=== PATIENT | male | born 1970 | race African-American/Black ===

== ENCOUNTER 2016-05-21 19:36 | Emergency (ER) | payer OTHER ==
[~2016-05-21] VITALS: Ht 177.8 cm; Wt 88.6 kg
[~2016-05-21 19:36] MED LIST: HYDR10TA16 PO; LEVO150T7 PO; LISI-360 PO
[2016-05-21 20:04] VITALS: BP 163/92; PULSE 84; RESP 16; TEMP 98.5; O2SAT 96
[2016-05-21] MEDS ORDERED: PROPARACAINE HCL 0.5% OPHT SOLN 15 ML BTL LEFT EYE ONE (20:15)
--- NOTE | 2016-05-21 20:31 | PD ---
HPI Chief Complaint: Eye Problems/Injury Time Seen by Provider: 20:26 Travel History International Travel<30 days: No Contact w/Intl Traveler<30days: No Traveled to known affect area: No History of Present Illness HPI Patient comes in complaining of left eye irritation began yesterday afternoon while cutting hair. Patient states he's been rubbing his eye as well as tried rinsing it with warm water, but continues to have pain and irritation to left eye. Patient states it has been having some clear drainage as well. Denies any fevers, headaches, or being around anyone else with similar. He reports he feels sometimes feels that does cause some blurriness in his left eye. Patient reports the irritation is at the medial aspect of his upper left eyelid. PFSH Past Medical History Arthritis: Yes Asthma: No Autoimmune Disease: No Blood Disorders: No Anxiety: Yes Depression: Yes Heart Rhythm Problems: No Cancer: No Cardiac Catheterization: No Cardiovascular Problems: Yes ([place]; STENT x2) High Cholesterol: Yes Chemotherapy: No Chest Pain: Yes Congestive Heart Failure: No COPD: No Cerebrovascular Accident: No Coronary Artery Disease: Yes Diabetes: No Diminished Hearing: No Endocrine: Yes GERD: No Genitourinary: No Hepatitis: No Hiatal Hernia: No Hypertension: Yes Immune Disorder: No Kidney Stones: No Musculoskeletal: Yes (ARTHRITIS, BACK PAIN) Neurologic: No Psychiatric: No Reproductive: No Respiratory: No Migraines: Yes Myocardial Infarction: Yes Radiation Therapy: No Renal Failure: No Seizures: No Sickle Cell Disease: No Sleep Apnea: No Thyroid Disease: Yes (hyperthyroidism) Ulcer: No Tetanus Vaccination: < 5 Years Influenza Vaccination: No PNEUMOCCOCAL Vaccine (Year): 2 Past Surgical History Abdominal Surgery: No AICD: No Arteriovenous Shunt: No Cardiac Surgery: Yes (STENTS X 2) Coronary Artery Bypass Graft: No Coronary Stent: Yes (X2) Ear Surgery: No Endocrine Surgery: Yes (THYROIDECTOMY) Eye Surgery: No Genitourinary Surgery: No Insulin Pump: No Joint Replacement: No Oral Surgery: No Pacemaker: No Thoracic Surgery: No Other Surgery: Yes Social History Alcohol Use: Yes (OCCASIONALLY) Tobacco Use: Yes (1/2 PPD) Substance Use: Yes (HX OF MARIJUANA USE, DENIES TODAY) Allergies-Medications (Allergen,Severity, Reaction): Coded Allergies: Banana (Verified Allergy, Severe, 10/18/15) Morphine (Verified Allergy, Severe, Rash, 10/18/15) Reported Meds & Prescriptions Reported Meds & Active Scripts Active Erythromycin Opth Oint 5 Mg/Gm Oint 1 Applic LEFT EYE QID Lisinopril 10 mg (Lisinopril) 10 Mg Tab 1 Tab PO DAILY Reported Levothyroxine 150 mcg (Levothyroxine Sodium) 150 Mcg Tab 150 Mcg PO DAILY Lortab 10/500 (Acetaminophen/Hydrocodone Bitart) 10 Mg/500 Mg Tab 1 Tab PO Q6HPRN FOR PAIN Review of Systems Except as stated in HPI: all other systems reviewed are Neg Physical Exam Narrative GENERAL: Well-developed, well nourished, in no acute distress, and non-ill appearing. SKIN: Warm and dry. HEAD: Atraumatic. Normocephalic. EYES: Pupils equal and round. EOMI. No scleral icterus. No injection or drainage. Minimal edema noted medial aspect of left upper eyelid. ENT: No nasal bleeding or discharge. Mucous membranes pink and moist. NECK: Trachea midline. Supple. No nuclear rigidity. RESPIRATORY: No accessory muscle use. No respiratory distress. MUSCULOSKELETAL: No obvious deformities. No clubbing. No cyanosis. No edema. Full range of motion. NEUROLOGICAL: Awake and alert. No obvious cranial nerve deficits. Motor grossly within normal limits. Normal speech. PSYCHIATRIC: Appropriate mood and affect; insight and judgment normal. Data Data Last Documented VS Vital Signs Date Time Temp Pulse Resp B/P Pulse Ox O2 Delivery O2 Flow Rate FiO2 05/21/16 20:46 100.4 134 26 96 Room Air 05/21/16 20:04 163/92 Orders Proparacaine 0.5% Opth Soln (Alcaine 0.5 (05/21/16 20:15) [facility] Medical Decision Making Medical Screen Exam Complete: Yes Emergency Medical Condition: Yes Differential Diagnosis Foreign body, blepharitis, corneal abrasion, corneal ulcer, stye, other Narrative Course Patient in no obvious distress upon re-evaluation. Patient was asked if they wanted to speak to my attending, which the patient did not wish to do at this time. Any questions/concerns in reference to patient diagnosis/condition discussed and clarified prior to patient's discharge. Reinforced sheer importance of close follow up with patient's primary physician or primary care clinic and loom cleaner. Instructed patient to return to ED immediately, if symptoms return/worsen. Pt showed understanding of above instructions. Further instructions and recommendations were detailed in discharge paperwork. Pt ambulated without difficulty out of ED at discharge. Procedures Procedure Narrative Verbal consent was obtained. Affected eye was anesthetized using proparacaine. Fluorescein staining and Wood lamp exam performed with no uptake seen. Negative Bonnie sign. No hyphema, hyperemia, or rust ring. Eyelid was everted with no foreign body noted, but internal stye noted. No tenderness bilateral temporal arteries to palpation. Patient tolerated procedure well. Diagnosis Primary Impression: Hordeolum internum of left upper eyelid Referrals: Leigha Sotelo MD Patient Instructions: General Instructions, Luna (ED) Additional Instructions: Follow-up with your primary care physician and/or loom cleaner next week. Take all medication as prescribed. Apply warm compresses to affected eye multiple times today, decreased pain and promote healing. Return to the emergency department if symptoms get worse. Med/Other Pt SpecificInfo: Prescription(s) given Scripts Erythromycin Opth Oint 5 Mg/Gm Oint1 Applic LEFT EYE QID #1 TUBE Ref 0 Prov:Lissette Story MD 05/21/16 Disposition: 01 DISCHARGE HOME Condition: Stable Jamal Quiñones May 21, 2016 20:31
[2016-05-21] MEDS ORDERED: ERYTOIN10 LEFT EYE (20:32)
[2016-05-21 20:46] VITALS: TEMP 100.4; O2SAT 96
== END 2016-05-21 20:48 | disposition home or self-care (01) ==
LOC: PHEFT 19:36
DX: H00.024 Hordeolum internum left upper eyelid (principal)
CPT/HCPCS: 99282

== ENCOUNTER 2016-06-06 11:33 | Emergency (ER) | payer OTHER ==
[~2016-06-06] VITALS: Ht 177.8 cm; Wt 86.9 kg
[~2016-06-06 11:33] MED LIST changes: +ERYTOIN10 LEFT EYE
[2016-06-06 11:43] VITALS: BP 145/104; PULSE 71; RESP 18; TEMP 98.9; O2SAT 100
[2016-06-06] MEDS ORDERED: SYNT175T PO (11:54)
[2016-06-06] MEDS ORDERED: HYDR-3583 PO (11:54)
--- NOTE | 2016-06-06 12:05 | PD ---
HPI . Left ear pain and sore throat for 1 day Chief Complaint: ENT Complaint Time Seen by Provider: 12:05 Travel History International Travel<30 days: No Contact w/Intl Traveler<30days: No Traveled to known affect area: No History of Present Illness HPI 46-year-old male with history of hypothyroidism, CAD, OA, anxiety, depression, hypertension and old [place] here with complaints of left-sided ear pain and sore throat for 1 day. Patient said he suddenly developed an acute onset of left ear pain and sore throat, as well as some swollen glands. The pain does radiate to his left mastoid. He decided to come in for further evaluation as he does not really have a primary care provider. He tells me that his sewing line baler usually follows him for everything. He denies any cold symptoms such as fever, chills, or rhinorrhea. He denies any chest pain, nausea , vomiting, diaphoresis or shortness of breath. PFSH Past Medical History Arthritis: Yes Asthma: No Autoimmune Disease: No Blood Disorders: No Anxiety: Yes Depression: Yes Heart Rhythm Problems: No Cancer: No Cardiac Catheterization: No Cardiovascular Problems: Yes ([place], stent X's 2) High Cholesterol: Yes Chemotherapy: No Chest Pain: Yes Congestive Heart Failure: No COPD: No Cerebrovascular Accident: No Coronary Artery Disease: Yes Diabetes: No Diminished Hearing: No Endocrine: Yes GERD: No Genitourinary: No Hepatitis: No Hiatal Hernia: No Hypertension: Yes Immune Disorder: No Kidney Stones: No Musculoskeletal: Yes (Arthritis, back pain) Neurologic: No Psychiatric: No Reproductive: No Respiratory: No Migraines: Yes Myocardial Infarction: Yes Radiation Therapy: No Renal Failure: No Seizures: No Sickle Cell Disease: No Sleep Apnea: No Thyroid Disease: Yes (Hypothyroidism) Ulcer: No Tetanus Vaccination: < 5 Years Influenza Vaccination: No PNEUMOCCOCAL Vaccine (Year): 2 Past Surgical History Abdominal Surgery: No AICD: No Arteriovenous Shunt: No Cardiac Surgery: Yes (STENTS X 2) Coronary Artery Bypass Graft: No Coronary Stent: Yes (X's 2) Ear Surgery: No Endocrine Surgery: Yes (Thyroidectomy ) Eye Surgery: No Genitourinary Surgery: No Insulin Pump: No Joint Replacement: No Oral Surgery: No Pacemaker: No Thoracic Surgery: No Other Surgery: Yes Social History Alcohol Use: Yes (Occ.) Tobacco Use: Yes (1/2 PPD) Substance Use: Yes (Marijuana occ.) Allergies-Medications (Allergen,Severity, Reaction): Coded Allergies: Banana (Verified Allergy, Severe, 06/06/16) Morphine (Verified Allergy, Severe, Rash, 06/06/16) Reported Meds & Prescriptions Reported Meds & Active Scripts Active Augmentin (Amoxicillin-Clavulanate) 875-125 mg Tab 875 Mg PO BID not for use in CrCl <30 ml/min. Reported Hydrocodone-Acetaminophen 10-325 mg Tab 1 Tab PO QID PRN Synthroid (Levothyroxine Sodium) 175 Mcg Tab 175 Mcg PO DAILY Review of Systems General / Constitutional: No: Fever Eyes: No: Visual changes HENT: Positive: Sore Throat, Ear Discharge, No: Headaches Cardiovascular: No: Chest Pain or Discomfort Respiratory: No: Shortness of Breath Gastrointestinal: No: Abdominal Pain Genitourinary: No: Dysuria Musculoskeletal: No: Pain Skin: No Rash Neurologic: No: Weakness Psychiatric: No: Depression Endocrine: No: Polydipsia Hematologic/Lymphatic: No: Easy Bruising Physical Exam Narrative GENERAL: AAO x 3, no acute distress, Well-nourished, well-developed patient. SKIN: Warm and dry. No visible rashes or bruising. HEAD: Normocephalic and atraumatic. EYES: No scleral icterus. No injection or drainage. ENT: No nasal drainage noted. Mucous membranes pink. Airway patent. Normal posterior pharynx. Left TM bulging and erythematous. Tenderness to the left mastoid. NECK: Supple, trachea midline. No JVD. CARDIOVASCULAR: Regular rate and rhythm without murmurs, gallops, or rubs. RESPIRATORY: Breath sounds equal bilaterally. No accessory muscle use. No rhonchi or rales. GASTROINTESTINAL: Abdomen soft, non-tender, nondistended. EXTREMITIES: No cyanosis or edema. BACK: Nontender without obvious deformity. No CVA tenderness. PSYCH: AAO x 3, normal affect. Data Data Last Documented VS Vital Signs Date Time Temp Pulse Resp B/P Pulse Ox O2 Delivery O2 Flow Rate FiO2 06/06/16 11:50 14 06/06/16 11:43 98.9 71 145/104 100 MDM Medical Decision Making Medical Screen Exam Complete: Yes Emergency Medical Condition: Yes Medical Record Reviewed: Yes Differential Diagnosis OM, mastoiditis, sinusitis Narrative Course 46-year-old male with history of hypothyroidism, CAD, OA, anxiety, depression, hypertension and old [place] here with complaints of left-sided ear pain and sore throat for 1 day. Patient said he suddenly developed an acute onset of left ear pain and sore throat, as well as some swollen glands. The pain does radiate to his left mastoid. He decided to come in for further evaluation as he does not really have a primary care provider. He tells me that his sewing line baler usually follows him for everything. He denies any cold symptoms such as fever, chills, or rhinorrhea. He denies any chest pain, nausea , vomiting, diaphoresis or shortness of breath. Patient seen and examined. Exam is remarkable for left otitis media and tenderness over the mastoid. Discussed with patient that I will treat with a round of antibiotics. Advised him he can use Tylenol or Motrin as needed for pain. Patient verbalized understanding of instructions, questions were answered, and thanked me for their care. I advised them if their condition worsens, please return to the nearest emergency room for further care. Diagnosis Primary Impression: LOM (left otitis media) Qualified Code: H66.92 - Left otitis media, unspecified chronicity, unspecified otitis media type Additional Impression: Acute sinusitis Qualified Code: J01.00 - Acute maxillary sinusitis, recurrence not specified Patient Instructions: General Instructions, Otitis Media (ED) Additional Instructions: Please return to emergency department if your symptoms return or worsen. Follow up with your primary care provider. Take medications as prescribed. Follow-up with her primary care provider. Do not put any Q-tips or other objects in your ear. You can use salt water gargles to help with the sore throat. Med/Other Pt SpecificInfo: Prescription(s) given Scripts Amoxicillin-Clavulanate (Augmentin)875-125 mg Fad781 Mg PO BID #20 TAB not for use in CrCl <30 ml/min. Prov:Andres Marti MD 06/06/16 Disposition: 01 DISCHARGE HOME Condition: Stable Nicole Mantilla Jun 06, 2016 12:05
[2016-06-06] MEDS ORDERED: AUGM875T PO (12:09)
== END 2016-06-06 12:24 | disposition home or self-care (01) ==
LOC: PHEFT 11:33
DX: H66.92 Otitis media, unspecified, left ear (principal); J01.90 Acute sinusitis, unspecified; J02.9 Acute pharyngitis, unspecified; E78.00 Pure hypercholesterolemia, unspecified; I10 Essential (primary) hypertension; E03.9 Hypothyroidism, unspecified; F17.210 Nicotine dependence, cigarettes, uncomplicated
CPT/HCPCS: 99282

== ENCOUNTER 2016-07-24 09:42 | Emergency (ER) | payer OTHER ==
[~2016-07-24] VITALS: Ht 177.8 cm; Wt 86.0 kg
[~2016-07-24 09:42] MED LIST changes: +AUGM875T PO; -ERYTOIN10 LEFT EYE; +HYDR-3583 PO; -HYDR10TA16 PO; -LEVO150T7 PO; -LISI-360 PO; +SYNT175T PO
[2016-07-24 09:52] VITALS: PULSE 80; RESP 17; TEMP 98.5; O2SAT 97
[2016-07-24] MEDS ORDERED: HYDR-3583 PO (10:03)
[2016-07-24 10:08] VITALS: BP 206/106
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
== END 2016-07-24 10:33 | disposition home or self-care (01) ==
LOC: PHED 09:42
DX: S09.90XA Unspecified injury of head, initial encounter (principal); M25.561 Pain in right knee; M25.562 Pain in left knee; E03.9 Hypothyroidism, unspecified; Y92.008 Other place in unspecified non-institutional (private) residence as the place of occurrence of the external cause; W18.09XA Striking against other object with subsequent fall, initial encounter; Y93.01 Activity, walking, marching and hiking; Y99.9 Unspecified external cause status; I25.10 Atherosclerotic heart disease of native coronary artery without angina pectoris; E78.00 Pure hypercholesterolemia, unspecified; M19.90 Unspecified osteoarthritis, unspecified site; F41.9 Anxiety disorder, unspecified
CPT/HCPCS: 99283

== ENCOUNTER 2016-09-12 08:11 | Emergency (ER) | payer OTHER ==
[~2016-09-12] VITALS: Ht 175.3 cm; Wt 84.0 kg
[~2016-09-12 08:11] MED LIST changes: -AUGM875T PO
[2016-09-12 08:14] VITALS: BP 182/104; PULSE 80; RESP 16; TEMP 98.3; O2SAT 99
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
== END 2016-09-12 09:42 | disposition home or self-care (01) ==
LOC: PHED 08:11
DX: S06.0X0A Concussion without loss of consciousness, initial encounter (principal); I25.2 Old myocardial infarction; E78.00 Pure hypercholesterolemia, unspecified; I25.10 Atherosclerotic heart disease of native coronary artery without angina pectoris; I10 Essential (primary) hypertension; E03.9 Hypothyroidism, unspecified; F17.210 Nicotine dependence, cigarettes, uncomplicated; W22.8XXA Striking against or struck by other objects, initial encounter; Y93.9 Activity, unspecified; Y92.34 Swimming pool (public) as the place of occurrence of the external cause; Y99.8 Other external cause status
CPT/HCPCS: 70450; 99284

== ENCOUNTER 2017-03-06 12:30 | Observation (INO) | payer OTHER ==
[2017-03-06] VITALS (9 sets, daily range): BP systolic 123–181; BP diastolic 65–103; PULSE 59–87; RESP 16–22; TEMP 97.7–97.9; O2SAT 96–99
[~2017-03-06] VITALS: Ht 175.3 cm; Wt 87.0 kg
--- NOTE | 2017-03-06 12:54 | PD ---
HPI Chief Complaint: Chest Pain Time Seen by Provider: 12:47 Travel History International Travel<30 days: No Contact w/Intl Traveler<30days: No Traveled to known affect area: No History of Present Illness HPI Patient is a 47-year-old male presented to emergency department for evaluation of chest pain. Patient states the pain is been ongoing for 1 week. He states it's midsternal and radiates to his right upper chest wall. He reports palpitations, nausea, shortness of breath. He also has felt diaphoretic and lightheaded. The pain is a 10 out of 10 and is not alleviated or exacerbated by anything including activity. Patient states pain is pressure-like, he states it's feeling better now that he is here. He reports a history of a heart attack 3 years ago secondary to hyperthyroidism. He has 2 stents placed. He had a thyroidectomy and is currently on Synthroid daily. He is followed by his sales and marketing assistant. He has not seen a gear lapper in several years. He had been followed by Dr. Johnson in the past. Patient continues to smoke tobacco, he denies any illicit drug use. PFSH Past Medical History Hx Anticoagulant Therapy: Yes (asa) Arthritis: Yes Asthma: No Autoimmune Disease: No Blood Disorders: No Anxiety: Yes Depression: Yes Heart Rhythm Problems: No Cancer: No Cardiac Catheterization: No Cardiovascular Problems: Yes (ID, stent X's 2) High Cholesterol: Yes Chemotherapy: No Chest Pain: Yes Congestive Heart Failure: No COPD: No Cerebrovascular Accident: No Coronary Artery Disease: Yes Diabetes: No Diminished Hearing: No GERD: No Genitourinary: No Hepatitis: No Hiatal Hernia: No Hypertension: Yes Immune Disorder: No Kidney Stones: No Neurologic: No Psychiatric: No Reproductive: No Respiratory: No Migraines: Yes Myocardial Infarction: Yes Radiation Therapy: No Renal Failure: No Seizures: No Sickle Cell Disease: No Sleep Apnea: No Thyroid Disease: Yes Ulcer: No PNEUMOCCOCAL Vaccine (Year): 2 Past Surgical History Abdominal Surgery: No AICD: No Arteriovenous Shunt: No Coronary Artery Bypass Graft: No Coronary Stent: Yes Ear Surgery: No Endocrine Surgery: Yes (Thyroidectomy ) Eye Surgery: No Genitourinary Surgery: No Insulin Pump: No Joint Replacement: No Oral Surgery: No Pacemaker: No Thoracic Surgery: No Social History Alcohol Use: Yes (occ) Tobacco Use: Yes (1/2 ppd) Substance Use: No Allergies-Medications (Allergen,Severity, Reaction): Coded Allergies: banana (Unverified Allergy, Severe, 03/06/17) morphine (Unverified Allergy, Severe, Rash, 03/06/17) Reported Meds & Prescriptions Reported Meds & Active Scripts Active Reported Oxycodone-Acetaminophen 10-325 mg Tab 1 Tab PO Q6H PRN Aspirin 81 Mg Chew 81 Mg CHEW DAILY Synthroid (Levothyroxine Sodium) 175 Mcg Tab 175 Mcg PO DAILY Review of Systems Except as stated in HPI: all other systems reviewed are Neg General / Constitutional: No: Fever, Chills Eyes: No: Blurred Vision HENT: Positive: Lightheadedness, No: Headaches Cardiovascular: Positive: Chest Pain or Discomfort, Palpitations, Diaphoresis, No: Dyspnea on exertion, Edema Respiratory: Positive: Shortness of Breath Gastrointestinal: Positive: Nausea, No: Vomiting, Diarrhea, Abdominal Pain Neurologic: No: Weakness, Syncope, Focal Abnormalities Physical Exam Narrative GENERAL: Well-developed, well-nourished, alert male. Resting comfortably in no acute distress. SKIN: Warm and dry. HEAD: Atraumatic. Normocephalic. EYES: Pupils equal and round. No scleral icterus. No injection or drainage. ENT: No nasal bleeding or discharge. Mucous membranes pink and moist. NECK: Trachea midline. No JVD. CARDIOVASCULAR: Regular rate and rhythm. 2/6 systolic murmur RESPIRATORY: No accessory muscle use. Clear to auscultation. Breath sounds equal bilaterally. GASTROINTESTINAL: Abdomen soft, non-tender, nondistended. Hepatic and splenic margins not palpable. MUSCULOSKELETAL: Extremities without clubbing, cyanosis, or edema. No obvious deformities. NEUROLOGICAL: Awake and alert. No obvious cranial nerve deficits. Motor grossly within normal limits. Five out of 5 muscle strength in the arms and legs. Normal speech. PSYCHIATRIC: Appropriate mood and affect; insight and judgment normal. Data Data Last Documented VS Vital Signs Date Time Temp Pulse Resp B/P (MAP) Pulse Ox O2 Delivery O2 Flow Rate FiO2 03/06/17 13:08 80 20 166/77 (106) 96 Room Air 03/06/17 12:32 97.8 Orders Orders Electrocardiogram (03/06/17 12:47) Ckmb (Isoenzyme) Profile (03/06/17 12:47) Complete Blood Count With Diff (03/06/17 12:47) Comprehensive Metabolic Panel (03/06/17 12:47) Magnesium (Mg) (03/06/17 12:47) Prothrombin Time / Inr (Pt) (03/06/17 12:47) Act Partial Throm Time (Ptt) (03/06/17 12:47) Troponin I (03/06/17 12:47) Lipase (03/06/17 12:47) Chest, Single Ap (03/06/17 12:47) Ecg Monitoring (03/06/17 12:47) Bilateral Bp Monitoring (03/06/17 12:47) Iv Access Insert/Monitor (03/06/17 12:47) Oximetry (03/06/17 12:47) Oxygen Administration (03/06/17 12:47) Aspirin Chew (Aspirin Chew) (03/06/17 13:00) Nitroglycerin 2% Oint (Nitroglycerin 2% (03/06/17 13:00) Sodium Chloride 0.9% Flush (Ns Flush) (03/06/17 13:00) Thyroid Stimulating Hormone (03/06/17 12:47) Free Thyroxine (T4) (03/06/17 12:47) CKMB (03/06/17 12:52) CKMB% (03/06/17 12:52) Admit Order (Ed Use Only) (03/06/17 13:53) Labs Laboratory Tests Test 03/06/17 12:52 White Blood Count 4.7 TH/MM3 Red Blood Count 4.49 MIL/MM3 Hemoglobin 13.3 GM/DL Hematocrit 39.9 % Mean Corpuscular Volume 88.9 FL Mean Corpuscular Hemoglobin 29.5 PG Mean Corpuscular Hemoglobin Concent 33.2 % Red Cell Distribution Width 14.0 % Platelet Count 205 TH/MM3 Mean Platelet Volume 8.3 FL Neutrophils (%) (Auto) 60.1 % Lymphocytes (%) (Auto) 28.8 % Monocytes (%) (Auto) 6.7 % Eosinophils (%) (Auto) 3.9 % Basophils (%) (Auto) 0.5 % Neutrophils # (Auto) 2.8 TH/MM3 Lymphocytes # (Auto) 1.4 TH/MM3 Monocytes # (Auto) 0.3 TH/MM3 Eosinophils # (Auto) 0.2 TH/MM3 Basophils # (Auto) 0.0 TH/MM3 CBC Comment DIFF FINAL Differential Comment Prothrombin Time 11.6 SEC Prothromb Time International Ratio 1.1 RATIO Activated Partial Thromboplast Time 27.7 SEC Blood Urea Nitrogen 11 MG/DL Creatinine 0.95 MG/DL Random Glucose 97 MG/DL Total Protein 7.4 GM/DL Albumin 3.7 GM/DL Calcium Level 8.6 MG/DL Magnesium Level 1.8 MG/DL Alkaline Phosphatase 87 U/L Aspartate Amino Transf (AST/SGOT) 26 U/L Alanine Aminotransferase (ALT/SGPT) 46 U/L Total Bilirubin 0.7 MG/DL Sodium Level 140 MEQ/L Potassium Level 3.8 MEQ/L Chloride Level 105 MEQ/L Carbon Dioxide Level 29.8 MEQ/L Anion Gap 5 MEQ/L Estimat Glomerular Filtration Rate 103 ML/MIN Total Creatine Kinase 389 U/L Creatine Kinase MB 1.7 NG/ML Creatine Kinase MB % 0.4 % Troponin I LESS THAN 0.02 NG/ML Lipase 182 U/L Free Thyroxine 1.82 NG/DL Thyroid Stimulating Hormone 3rd Gen 0.013 uIU/ML MDM Medical Decision Making Medical Screen Exam Complete: Yes Emergency Medical Condition: Yes Medical Record Reviewed: Yes Interpretation(s) Last Impressions Chest X-Ray 03/06/17 1247 Signed Impressions: Service Date/Time: Monday, March 06, 2017 12:59 - CONCLUSION: 1. No acute cardiopulmonary disease. Jacobo Hairston MD Laboratory Tests Test 03/06/17 12:52 White Blood Count 4.7 TH/MM3 Red Blood Count 4.49 MIL/MM3 Hemoglobin 13.3 GM/DL Hematocrit 39.9 % Mean Corpuscular Volume 88.9 FL Mean Corpuscular Hemoglobin 29.5 PG Mean Corpuscular Hemoglobin Concent 33.2 % Red Cell Distribution Width 14.0 % Platelet Count 205 TH/MM3 Mean Platelet Volume 8.3 FL Neutrophils (%) (Auto) 60.1 % Lymphocytes (%) (Auto) 28.8 % Monocytes (%) (Auto) 6.7 % Eosinophils (%) (Auto) 3.9 % Basophils (%) (Auto) 0.5 % Neutrophils # (Auto) 2.8 TH/MM3 Lymphocytes # (Auto) 1.4 TH/MM3 Monocytes # (Auto) 0.3 TH/MM3 Eosinophils # (Auto) 0.2 TH/MM3 Basophils # (Auto) 0.0 TH/MM3 CBC Comment DIFF FINAL Differential Comment Prothrombin Time 11.6 SEC Prothromb Time International Ratio 1.1 RATIO Activated Partial Thromboplast Time 27.7 SEC Blood Urea Nitrogen 11 MG/DL Creatinine 0.95 MG/DL Random Glucose 97 MG/DL Total Protein 7.4 GM/DL Albumin 3.7 GM/DL Calcium Level 8.6 MG/DL Magnesium Level 1.8 MG/DL Alkaline Phosphatase 87 U/L Aspartate Amino Transf (AST/SGOT) 26 U/L Alanine Aminotransferase (ALT/SGPT) 46 U/L Total Bilirubin 0.7 MG/DL Sodium Level 140 MEQ/L Potassium Level 3.8 MEQ/L Chloride Level 105 MEQ/L Carbon Dioxide Level 29.8 MEQ/L Anion Gap 5 MEQ/L Estimat Glomerular Filtration Rate 103 ML/MIN Total Creatine Kinase 389 U/L Creatine Kinase MB 1.7 NG/ML Creatine Kinase MB % 0.4 % Troponin I LESS THAN 0.02 NG/ML Lipase 182 U/L Free Thyroxine 1.82 NG/DL Thyroid Stimulating Hormone 3rd Gen 0.013 uIU/ML Vital Signs Date Time Temp Pulse Resp B/P (MAP) Pulse Ox O2 Delivery O2 Flow Rate FiO2 03/06/17 12:32 97.8 87 18 181/95 (393) 97 Differential Diagnosis ACS VS NSTEMI VS [place] VS METABOLIC ABNORMALITY VS Narrative Course Patient is a 47-year-old male presents emergency evaluation of chest pain and been ongoing for 1 week. Hypertensive on arrival. He was given 324 of chewable aspirin and 2 inch of nitro paste to anterior chest wall. Labs and imaging were ordered and pending. Patient history of previous ID and continues to smoke. Initial EKG reviewed by my attending physician. Labs reviewed, no acute findings identified. Chest x-ray shows no acute disease. Due to patient's past medical history as well as current comorbidities he will be placed in the chest pain center for further trending of enzymes and observation. Chest pain admission order placed. Patient's vital signs remained stable. Diagnosis Primary Impression: Chest pain Qualified Codes: R07.9 - Chest pain, unspecified Admitting Information Admitting Physician Requests: Observation Condition: Stable Barb England Mar 06, 2017 12:54
[2017-03-06] MEDS ORDERED: ASPIRIN 81 MG CHEW TAB PO ONE (13:00)
[2017-03-06] MEDS ORDERED: NITROGLYCERIN 2% OINT 1 GM PACKET TOP ONE (13:00)
[2017-03-06] MEDS ORDERED: SODIUM CHLORIDE 0.9% FLUSH 10 ML FLUSH IVF PRN (13:00)
[2017-03-06 13:07] LABS: AUTOMATED NEUTROPHIL # 2.8 TH/MM3 (1.8-7.7); BASOPHIL % 0.5 % (0.0-2.0); EOSINOPHIL # 0.2 TH/MM3 (0-0.4); EOSINOPHIL % 3.9 % (0.0-4.0); HEMATOCRIT 39.9 % (39.0-51.0); HEMO FLAGS DIFF FINAL; LYMPH % 28.8 % (9.0-44.0); LYMPHOCYTE # 1.4 TH/MM3 (1.0-4.8); MEAN CELL VOLUME 88.9 FL (80.0-100.0); MEAN CORPUSCULAR HEMOGLOBIN 29.5 PG (27.0-34.0); MEAN CORPUSCULAR HGB CONC 33.2 % (32.0-36.0); MONO % 6.7 % (0.0-8.0); NEUT % 60.1 % (16.0-70.0); PLATELET COUNT 205 TH/MM3 (150-450); RED BLOOD COUNT 4.49 MIL/MM3 (4.50-5.90); WHITE BLOOD COUNT 4.7 TH/MM3 (4.0-11.0)
[2017-03-06 13:14] LABS: APTT (PATIENT) 27.7 SEC (24.3-30.1); INTERNATIONAL NORMALIZED RATIO 1.1 RATIO; PROTHROMBIN TIME - PATIENT 11.6 SEC (9.8-11.6)
[2017-03-06 13:21] LABS: ALT (GPT) 46 U/L (12-78); ANION GAP 5 MEQ/L (5-15); AST (GOT) 26 U/L (15-37); BICARBONATE 29.8 MEQ/L (21.0-32.0); BLOOD UREA NITROGEN 11 MG/DL (7-18); CHLORIDE 105 MEQ/L (98-107); GLOMERULAR FILTRATION RATE 103 ML/MIN (>89); MAGNESIUM 1.8 MG/DL (1.5-2.5); POTASSIUM 3.8 MEQ/L (3.5-5.1); SODIUM (NA) 140 MEQ/L (136-145)
[2017-03-06 13:30] LABS: ALKALINE PHOSPHATASE 87 U/L (45-117); CREATINE KINASE 389 U/L (39-308); FREE T4 1.82 NG/DL (0.76-1.46); TOTAL BILIRUBIN ADULT 0.7 MG/DL (0.2-1.0)
[2017-03-06] MEDS ORDERED: OXYC1TAB36 PO (13:32)
[2017-03-06] MEDS ORDERED: ASPI-516 CHEW (13:32)
[2017-03-06 13:42] LABS: CKMB 1.7 NG/ML (0.5-3.6)
--- NOTE | 2017-03-06 13:44 | RADRPT ---
EXAM DATE/TIME: 03/06/2017 12:59 [facility] COMPARISON: CHEST SINGLE AP, October 18, 2015, 23:06. INDICATIONS : Chest pain. MEDICAL HISTORY : Myocardial infarction. SURGICAL HISTORY : Cardiac stent. ENCOUNTER: Initial ACUITY: 1 day PAIN SCORE: 5/10 LOCATION: Bilateral chest FINDINGS: A single view of the chest demonstrates the lungs to be symmetrically aerated without evidence of mas s, infiltrate or effusion. The cardiomediastinal contours are unremarkable. Osseous structures are intact. CONCLUSION: 1. No acute cardiopulmonary disease. Jacobo Hairston MD on March 06, 2017 at 13:41 Board Certified Radiologist. This report was verified electronically.
[2017-03-06] MEDS ORDERED: ONDANSETRON HCL 4 MG/2 ML VIAL IV PUSH PRN (14:00)
[2017-03-06] MEDS ORDERED: ACETAMINOPHEN 500 MG CPLT PO PRN (14:00)
[2017-03-06] MEDS ORDERED: NITROGLYCERIN 0.4 MG SL 25 TABS/BTL SL PRN (14:00)
[2017-03-06] MEDS ORDERED: SODIUM CHLORIDE 0.9% FLUSH 10 ML FLUSH IV FLUSH PRN (14:00)
--- NOTE | 2017-03-06 14:56 | HHI.HP ---
HPI Primary Care Physician No Primary Care Physician Chief Complaint Chest pain History of Present Illness 47 year old male with known CAD, HTN, and current smoker presents to ER for further evaluation of chest pain. Onset 2 weeks ago. Location substernal chest. Characterized as pressure. Moderate severity. Radiation to right anterior chest and clavicle area. Duration of substernal chest pain 2-5 minutes, followed by "lingering" pain right chest. Reports accompanied intermittent palpations. No associated symptoms. No known precipitating or relieving factors. Substernal chest pain and palpations episodes occur 1-2x daily, not always occurring simultaneously. Right anterior chest pressure consistent x2 weeks. Endorses similar pain in the past prior to cardiac stent placement, however not has severe. Review of Systems General: No fatigue,weakness, fever, chills, recent illness, or change in appetite. HEENT: No BRENNER CV: As stated above, currently does not have any substernal chest pain. Continues to have right anterior chest pressure. No current palpitations. RESP: No SOB, cough, or recent respiratory infection. GI: No nausea, vomiting, or bowel changes. No change in appetite, no unintentional weight gain or weight loss. EXT: No lower leg edema, no paraesthesias MS: No discomfort or change in ROM, no known injury NEURO: No difficulty with balance, LOC, motor/sensory deficits PSYCH: No anxiety or depression. Current job related situation stress. SKIN: No rashes, no concerning lesions Past Family Social History Allergies: Coded Allergies: banana (Unverified Allergy, Severe, 03/06/17) morphine (Unverified Allergy, Severe, Rash, 03/06/17) Past Medical History hypothyroidism, chronic back pain, arthritis, CAD with x2 cardiac stents, HTN, chronic back pain Past Surgical History Thyroidectomy (2012) Reported Medications Reported Meds & Active Scripts Active Reported Oxycodone-Acetaminophen 10-325 mg Tab 1 Tab PO Q6H PRN Aspirin 81 Mg Chew 81 Mg CHEW DAILY Synthroid (Levothyroxine Sodium) 175 Mcg Tab 175 Mcg PO DAILY - Synthroid 350mcg on Sundays Active Ordered Medications Current Medications Medications (Trade) Dose Ordered Sig/Dagoberto Route Start Time Stop Time Status Last Admin (NS Flush) 2 ml UNSCH PRN IV FLUSH 03/06/17 14:00 (NS Flush) 2 ml BID IV FLUSH 03/06/17 21:00 (Tylenol) 500 mg Q4H PRN PO 03/06/17 14:00 (Zofran Inj) 4 mg Q6H PRN IV PUSH 03/06/17 14:00 (Nitrostat Sl) 0.4 mg Q5M PRN SL 03/06/17 14:00 (Aspirin) 325 mg DAILY PO 03/07/17 09:00 Family History Noncontributory for early onset cardiovascular disease Social History Known CAD and hypertension. No known diabetes. Currently not taking any cholesterol medications at this time. Current smoker 7-8 cigarettes/daily. Alcohol socially. Endorses marijuana use on days off to help with chronic pain. . 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 Past cardiac testing 10/20/15 Lexiscan-normal exam 02/12/12 Lexiscan-normal exam 12/23/10 Cardiac catheterization (Dr. Johnson) Conclusion 1. Chest pain. CAD, culprit 90% mid RCA stenosis. Otherwise mild 2 vessel CAD in a right dominant system. 2. Widely patent stent in the mid to distal RCA. 3. Hyperdynamic LVSF with relatively low end-diastolic pressure suggesting intervascular volume depletion. 4. Successful direct percutaneous coronary intervention with bare metal stent of the mid RCA from 90% to 0% with RAMAKRISHNA 3 flow. 5. Spasms at the RCA with a guide catheter in place suggesting epithelial dysfunction. 11/10/10 Cardiac catheterization (Dr. Johnson) Conclusion 1. Acute coronary syndrome with culprit 95% mid to distal right coronary artery stenosis. 2. Otherwise mild o moderate three-vessel coronary disease. 3. Normal LVSF, EF 65% . 4. Successful direct percutaneous coronary intervention with bare-metal stent of the mid to distal right coronary artery from 95% to 0% with RAMAKRISHNA-3. 5. Recommend aspirin 81 mg a day indefinitely, Plavix 600 mg PO load, then 75 mg a day for a least 2 weeks, preferably 4 weeks, optimally 6 weeks, consider indefinitely. Physical Exam Vital Signs Vital Signs Date Time Temp Pulse Resp B/P (MAP) Pulse Ox O2 Delivery O2 Flow Rate FiO2 03/06/17 13:08 80 20 166/77 (106) 96 Room Air 03/06/17 12:52 95 Room Air 03/06/17 12:52 16 99 Room Air 03/06/17 12:46 85 99 Room Air 03/06/17 12:32 97.8 87 18 181/95 (123) 97 Physical Exam GENERAL: Alert WN, WD, NAD, pleasant, male HEAD: NC, AT NECK: Supple, no masses, trachea midline CV: RRR, without murmur, rub, gallop, no JVD, S1-S2 no S3-S4. Chest wall nontender with palpation. RESP: Clear lungs throughout bilateral, no crackles, wheeze, rhonchi, symmetrical chest rise, nonlabored, able to speak in full sentences ABD: Soft, NT, ND, no masses, positive bowel tones BACK: No scoliosis EXT: Pulses +24, no dependent edema MS: Normal tone 4 extremities, no obvious deformities, full range of motion NEURO: CN II through CN XII grossly intact, motor strength 5/5 PSYCH: A+O 3, pleasant affect, appropriate speech, appropriate mood and affect , insight and judgment SKIN: Normal turgor, normal texture, no lesions, no rashes, sluggish cap refill , even hair distribution Laboratory Laboratory Tests Test 03/06/17 12:52 White Blood Count 4.7 Red Blood Count 4.49 Hemoglobin 13.3 Hematocrit 39.9 Mean Corpuscular Volume 88.9 Mean Corpuscular Hemoglobin 29.5 Mean Corpuscular Hemoglobin Concent 33.2 Red Cell Distribution Width 14.0 Platelet Count 205 Mean Platelet Volume 8.3 Neutrophils (%) (Auto) 60.1 Lymphocytes (%) (Auto) 28.8 Monocytes (%) (Auto) 6.7 Eosinophils (%) (Auto) 3.9 Basophils (%) (Auto) 0.5 Neutrophils # (Auto) 2.8 Lymphocytes # (Auto) 1.4 Monocytes # (Auto) 0.3 Eosinophils # (Auto) 0.2 Basophils # (Auto) 0.0 CBC Comment DIFF FINAL Differential Comment Prothrombin Time 11.6 Prothromb Time International Ratio 1.1 Activated Partial Thromboplast Time 27.7 Blood Urea Nitrogen 11 Creatinine 0.95 Random Glucose 97 Total Protein 7.4 Albumin 3.7 Calcium Level 8.6 Magnesium Level 1.8 Alkaline Phosphatase 87 Aspartate Amino Transf (AST/SGOT) 26 Alanine Aminotransferase (ALT/SGPT) 46 Total Bilirubin 0.7 Sodium Level 140 Potassium Level 3.8 Chloride Level 105 Carbon Dioxide Level 29.8 Anion Gap 5 Estimat Glomerular Filtration Rate 103 Total Creatine Kinase 389 Creatine Kinase MB 1.7 Creatine Kinase MB % 0.4 Troponin I LESS THAN 0.02 Lipase 182 Free Thyroxine 1.82 Thyroid Stimulating Hormone 3rd Gen 0.013 Result Diagram: 03/06/17 1252 03/06/17 1252 Imaging Last Impressions Chest X-Ray 03/06/17 1247 Signed Impressions: Service Date/Time: Monday, March 06, 2017 12:59 - CONCLUSION: 1. No acute cardiopulmonary disease. Jacobo Hairston MD Course EKG NSR, ST elevation precordial leads, most likely early repolarization, T wave inversions interiorly and anterior laterally, criteria for LVH-compared to past EKG's unchanged. Caprini VTE Risk Assessment Caprini VTE Risk Assessment: No/Low Risk (score <= 1) Caprini Risk Assessment Model Point Value = 1 Point Value = 2 Point Value = 3 Point Value = 5 Age 41-60 Minor surgery BMI > 25 kg/m2 Swollen legs Varicose veins or History of unexplained or recurrent spontaneous Oral contraceptives or hormone replacement Sepsis (< 1 month) Serious lung disease, including pneumonia (< 1 month) Abnormal pulmonary function Acute myocardial infarction Congestive heart failure (< 1 month) History of inflammatory bowel disease Medical patient at bed rest Age 61-74 Arthroscopic surgery Major open surgery (> 45 min) Laparoscopic surgery (> 45 min) Malignancy Confined to bed (> 72 hours) Immobilizing plaster cast Central venous access Age >= 75 History of VTE Family history of VTE Factor V Leiden Prothrombin [id number] Lupus anticoagulant Anticardiolipin antibodies Elevated serum homocysteine Heparin-induced thrombocytopenia Other congenital or acquired thrombophilia Stroke (< 1 month) Elective arthroplasty Hip, pelvis, or leg fracture Acute spinal cord injury (< 1 month) Prophylaxis Regimen Total Risk Factor Score Risk Level Prophylaxis Regimen 0-1 Low Early ambulation 2 Moderate Order ONE of the following: *Sequential Compression Device (SCD) *Heparin 5000 units SQ BID 3-4 Higher Order ONE of the following medications: *Heparin 5000 units SQ TID *Enoxaparin/Lovenox 40 mg SQ daily (WT < 150 kg, CrCl > 30 mL/min) *Enoxaparin/Lovenox 30 mg SQ daily (WT < 150 kg, CrCl > 10-29 mL/min) *Enoxaparin/Lovenox 30 mg SQ BID (WT < 150 kg, CrCl > 30 mL/min) AND/OR *Sequential Compression Device (SCD) 5 or more Highest Order ONE of the following medications: *Heparin 5000 units SQ TID (Preferred with Epidurals) *Enoxaparin/Lovenox 40 mg SQ daily (WT < 150 kg, CrCl > 30 mL/min) *Enoxaparin/Lovenox 30 mg SQ daily (WT < 150 kg, CrCl > 10-29 mL/min) *Enoxaparin/Lovenox 30 mg SQ BID (WT < 150 kg, CrCl > 30 mL/min) AND *Sequential Compression Device (SCD) Assessment and Plan Assessment and Plan #1 Chest pain-admitted to chest pain. Rule out with 3 sets of EKGs and cardiac enzymes. Will be seen an evaluated by Dr. Raz Alexander. Discussed possible nuclear stress test due to abnormal EKG, most likely ordered for am after being ruled out. This will be determined by cardiology. Patient agreeable to plan of care. #2 Hypertension-continue to monitor, start Lisinopril 10 mg QD, discuss importance of tight BP, establishing with a PCP, and effects of uncontrolled blood pressure on myocardium. Encouraged low sodium diet and increasing daily activity. #3 History of CAD-continue aspirin, discussed benefits of statin therapies and beta gregg therapy. Reestablish with a stripper and printer of his choice at discharge. #4 Tobacco use-strongly encouraged and stressed importance of tobacco cessation. Instructed to quit smoking. Discussed alternative pain relieving methods for his chronic pain and CDC recommendations opioids not be used for back pain. Verbalized understanding. Establish with a PCP for preventive medical care and medical management. Elizabeth Guerra Mar 06, 2017 14:56
[2017-03-06] MEDS: LISINOPRIL 10 MG TAB PO SCH (16:02)
[2017-03-06] MEDS ORDERED: LISI10TA3 PO (16:24)
[2017-03-06 16:25] LABS: CREATINE KINASE 359 U/L (39-308)
--- NOTE | 2017-03-06 16:26 | PD.CARD.PN ---
Subjective Subjective Remarks 47 YO MALE WITH HX OF CAD AND PRIOR "HEART ATTACK" (NOT DOCUMENTED). HOWEVER HE WAS STENTED X2 BY DR. HAMILTON. HE WAS HYPERTHYROID AT THE TIME AND DR. KEITA REMOVED THE THYROID. SINCE THEN HE HAS DONE REASONABLY WELL UNTIL THE LAST FEW WEEKS. OVER THE LAST FEW WEEKS HE HAS BEEN HAVING RECURRENT CP BELOW: Onset: WEEKS Character: PRESSURE Location: MID CHEST Severity: 10 Radiation: RIGHT CHEST AND SHOULDER Duration: TODAY TILL ARRIVAL IN ED Associated Symptoms: SOB, LIGHT HEADED, DIAPHORETIC, NAUSEA AND PALPITATIONS Precipitating or Relieving Factors: SITTING AND RESTING Objective Medications Current Medications Medications (Trade) Dose Ordered Sig/Dagoberto Route Start Time Stop Time Status Last Admin (NS Flush) 2 ml UNSCH PRN IV FLUSH 03/06/17 14:00 (NS Flush) 2 ml BID IV FLUSH 03/06/17 21:00 (Tylenol) 500 mg Q4H PRN PO 03/06/17 14:00 (Zofran Inj) 4 mg Q6H PRN IV PUSH 03/06/17 14:00 (Nitrostat Sl) 0.4 mg Q5M PRN SL 03/06/17 14:00 (Aspirin) 325 mg DAILY PO 03/07/17 09:00 (Prinivil) 10 mg DAILY PO 03/06/17 16:00 03/06/17 16:02 Vital Signs / I&O Vital Signs Date Time Temp Pulse Resp B/P (MAP) Pulse Ox O2 Delivery O2 Flow Rate FiO2 03/06/17 15:56 59 20 151/74 (99) 98 Room Air 03/06/17 13:08 80 20 166/77 (106) 96 Room Air 03/06/17 12:52 95 Room Air 03/06/17 12:52 16 99 Room Air 03/06/17 12:46 85 99 Room Air 03/06/17 12:32 97.8 87 18 181/95 (123) 97 Physical Exam GENERAL: WNWD COOPERATIVE SKIN: Warm and dry. HEAD: Atraumatic. Normocephalic. EYES: Pupils equal and round. No scleral icterus. No injection or drainage. ENT: No nasal bleeding or discharge. Mucous membranes pink and moist. NECK: Trachea midline. No JVD. NO BRUIT CARDIOVASCULAR: Regular rate and rhythm. NO G,R,M RESPIRATORY: No accessory muscle use. Clear to auscultation. Breath sounds equal bilaterally. MUSCULOSKELETAL: Extremities without clubbing, cyanosis, or edema. No obvious deformities. EXT: NO EDEMA Laboratory Laboratory Tests Test 03/06/17 12:52 03/06/17 15:30 White Blood Count 4.7 TH/MM3 Red Blood Count 4.49 MIL/MM3 Hemoglobin 13.3 GM/DL Hematocrit 39.9 % Mean Corpuscular Volume 88.9 FL Mean Corpuscular Hemoglobin 29.5 PG Mean Corpuscular Hemoglobin Concent 33.2 % Red Cell Distribution Width 14.0 % Platelet Count 205 TH/MM3 Mean Platelet Volume 8.3 FL Neutrophils (%) (Auto) 60.1 % Lymphocytes (%) (Auto) 28.8 % Monocytes (%) (Auto) 6.7 % Eosinophils (%) (Auto) 3.9 % Basophils (%) (Auto) 0.5 % Neutrophils # (Auto) 2.8 TH/MM3 Lymphocytes # (Auto) 1.4 TH/MM3 Monocytes # (Auto) 0.3 TH/MM3 Eosinophils # (Auto) 0.2 TH/MM3 Basophils # (Auto) 0.0 TH/MM3 CBC Comment DIFF FINAL Differential Comment Prothrombin Time 11.6 SEC Prothromb Time International Ratio 1.1 RATIO Activated Partial Thromboplast Time 27.7 SEC Blood Urea Nitrogen 11 MG/DL Creatinine 0.95 MG/DL Random Glucose 97 MG/DL Total Protein 7.4 GM/DL Albumin 3.7 GM/DL Calcium Level 8.6 MG/DL Magnesium Level 1.8 MG/DL Alkaline Phosphatase 87 U/L Aspartate Amino Transf (AST/SGOT) 26 U/L Alanine Aminotransferase (ALT/SGPT) 46 U/L Total Bilirubin 0.7 MG/DL Sodium Level 140 MEQ/L Potassium Level 3.8 MEQ/L Chloride Level 105 MEQ/L Carbon Dioxide Level 29.8 MEQ/L Anion Gap 5 MEQ/L Estimat Glomerular Filtration Rate 103 ML/MIN Total Creatine Kinase 389 U/L Creatine Kinase MB 1.7 NG/ML Creatine Kinase MB % 0.4 % Troponin I LESS THAN 0.02 NG/ML Lipase 182 U/L Free Thyroxine 1.82 NG/DL Thyroid Stimulating Hormone 3rd Gen 0.013 uIU/ML Imaging Last 24 hours Impressions Chest X-Ray 03/06/17 4847 Signed Impressions: Service Date/Time: Monday, March 06, 2017 12:59 - CONCLUSION: 1. No acute cardiopulmonary disease. Jacobo Hairston MD Assessment and Plan Assessment and Plan CAD RECURRING CP THYROID HTN TOBACCO ABUSE Code Status FULL Discussed Condition With DISCUSSED EVALUATION AND NUC SCAN WITH PT NEED TO STOP SMOKING NEED TO FU OP ON ROUTINE BASIS Raz Alexander MD Mar 06, 2017 16:26
[2017-03-06 16:37] LABS: CKMB 1.6 NG/ML (0.5-3.6)
[2017-03-06] MEDS ORDERED: cloNIDine HCL 0.1 MG TAB PO PRN (16:45)
--- NOTE | 2017-03-06 16:45 | PD ---
Data Data Last Documented VS Vital Signs Date Time Temp Pulse Resp B/P (MAP) Pulse Ox O2 Delivery O2 Flow Rate FiO2 03/06/17 13:08 80 20 166/77 (106) 96 Room Air 03/06/17 12:32 97.8 Orders Orders Electrocardiogram (03/06/17 12:47) Ckmb (Isoenzyme) Profile (03/06/17 12:47) Complete Blood Count With Diff (03/06/17 12:47) Comprehensive Metabolic Panel (03/06/17 12:47) Magnesium (Mg) (03/06/17 12:47) Prothrombin Time / Inr (Pt) (03/06/17 12:47) Act Partial Throm Time (Ptt) (03/06/17 12:47) Troponin I (03/06/17 12:47) Lipase (03/06/17 12:47) Chest, Single Ap (03/06/17 12:47) Ecg Monitoring (03/06/17 12:47) Bilateral Bp Monitoring (03/06/17 12:47) Iv Access Insert/Monitor (03/06/17 12:47) Oximetry (03/06/17 12:47) Oxygen Administration (03/06/17 12:47) Aspirin Chew (Aspirin Chew) (03/06/17 13:00) Nitroglycerin 2% Oint (Nitroglycerin 2% (03/06/17 13:00) Sodium Chloride 0.9% Flush (Ns Flush) (03/06/17 13:00) Thyroid Stimulating Hormone (03/06/17 12:47) Free Thyroxine (T4) (03/06/17 12:47) CKMB (03/06/17 12:52) CKMB% (03/06/17 12:52) Admit Order (Ed Use Only) (03/06/17 13:53) Labs Laboratory Tests Test 03/06/17 12:52 White Blood Count 4.7 TH/MM3 Red Blood Count 4.49 MIL/MM3 Hemoglobin 13.3 GM/DL Hematocrit 39.9 % Mean Corpuscular Volume 88.9 FL Mean Corpuscular Hemoglobin 29.5 PG Mean Corpuscular Hemoglobin Concent 33.2 % Red Cell Distribution Width 14.0 % Platelet Count 205 TH/MM3 Mean Platelet Volume 8.3 FL Neutrophils (%) (Auto) 60.1 % Lymphocytes (%) (Auto) 28.8 % Monocytes (%) (Auto) 6.7 % Eosinophils (%) (Auto) 3.9 % Basophils (%) (Auto) 0.5 % Neutrophils # (Auto) 2.8 TH/MM3 Lymphocytes # (Auto) 1.4 TH/MM3 Monocytes # (Auto) 0.3 TH/MM3 Eosinophils # (Auto) 0.2 TH/MM3 Basophils # (Auto) 0.0 TH/MM3 CBC Comment DIFF FINAL Differential Comment Prothrombin Time 11.6 SEC Prothromb Time International Ratio 1.1 RATIO Activated Partial Thromboplast Time 27.7 SEC Blood Urea Nitrogen 11 MG/DL Creatinine 0.95 MG/DL Random Glucose 97 MG/DL Total Protein 7.4 GM/DL Albumin 3.7 GM/DL Calcium Level 8.6 MG/DL Magnesium Level 1.8 MG/DL Alkaline Phosphatase 87 U/L Aspartate Amino Transf (AST/SGOT) 26 U/L Alanine Aminotransferase (ALT/SGPT) 46 U/L Total Bilirubin 0.7 MG/DL Sodium Level 140 MEQ/L Potassium Level 3.8 MEQ/L Chloride Level 105 MEQ/L Carbon Dioxide Level 29.8 MEQ/L Anion Gap 5 MEQ/L Estimat Glomerular Filtration Rate 103 ML/MIN Total Creatine Kinase 389 U/L Creatine Kinase MB 1.7 NG/ML Creatine Kinase MB % 0.4 % Troponin I LESS THAN 0.02 NG/ML Lipase 182 U/L Free Thyroxine 1.82 NG/DL Thyroid Stimulating Hormone 3rd Gen 0.013 uIU/ML MDM Supervised Visit with ROSE: Yes Narrative Course The history, exam, and medical decision-making in the associated mid-level provider note were completed with my assistance. I reviewed and agree with the findings presented. I attest that I had a [id number] encounter with the patient on the same day, and personally performed and documented my assessment and findings in the medical record. *My assessment and Findings: 47-year-old man, for this emergency Department intermittent, somewhat exertional chest discomfort. History moderately suggestive for ACS. He is a history of ACS in the past apparently so she with thyroid disease. Presents back with the same. Very abnormal EKG, but consistent with baseline. He has what appears to be significant J-point elevation and ST changes seem to be related to early repolarization and not ischemia. Temperature is on multiple EKGs in the past. Initial troponin is negative. I think is a candidate for the chest pain Center will need follow-up for his thyroid disease. Diagnosis Primary Impression: Chest pain Qualified Codes: R07.9 - Chest pain, unspecified Scripts Lisinopril (Lisinopril) 10 Mg Tab 10 MG PO DAILY, #30 TAB 1 Refill Prov: Elizabeth Guerra 03/06/17 Condition: Stable Miguel Gaston MD Mar 06, 2017 16:45
[2017-03-06] MEDS: oxyCODONE/ACETAMINOPHEN 10 MG/325 MG TAB PO PRN (17:42)
[2017-03-06 19:33] LABS: CREATINE KINASE 338 U/L (39-308)
[2017-03-06 19:45] LABS: CKMB 1.7 NG/ML (0.5-3.6)
[2017-03-06] MEDS: SODIUM CHLORIDE 0.9% FLUSH 10 ML FLUSH IV FLUSH SCH (21:35)
[2017-03-07] VITALS (9 sets, daily range): BP systolic 130–189; BP diastolic 58–102; PULSE 57–69; RESP 18–21; TEMP 97.9–98.1; O2SAT 96–100
[2017-03-07] MEDS ORDERED: LEVOTHYROXINE SODIUM 75 MCG TAB PO SCH (06:00)
[2017-03-07] MEDS ORDERED: LEVOTHYROXINE SODIUM 100 MCG TAB PO SCH (06:00)
[2017-03-07] MEDS: LISINOPRIL 10 MG TAB PO SCH (08:48)
[2017-03-07] MEDS: SODIUM CHLORIDE 0.9% FLUSH 10 ML FLUSH IV FLUSH SCH (08:48)
[2017-03-07] MEDS: oxyCODONE/ACETAMINOPHEN 10 MG/325 MG TAB PO PRN (08:52)
[2017-03-07] MEDS ORDERED: ASPIRIN 325 MG TAB PO SCH (09:00)
[2017-03-07] MEDS ORDERED: REGADENOSON INJ 0.4 MG/5 ML SYR ONE (09:38)
--- NOTE | 2017-03-07 11:08 | RADRPT ---
EXAM DATE/TIME: 03/07/2017 09:35 [facility] COMPARISON: No previous studies available for comparison. INDICATIONS : Substernal chest pain radiating to right side. Angina. Coronary artery disease. DOSE: 25.5 mCi Tc99m Myoview at stress. 8.5 mCi Tc99m Myoview at rest. 0.4 mg Lexiscan STRESS SYMPTOMS: Shortness of breath. EJECTION FRACTION: 53% MEDICAL HISTORY : Hypertension. Hypothyroidism. SURGICAL HISTORY : Thyroidectomy. Coronary artery stent. ENCOUNTER: Initial ACUITY: 2 weeks PAIN SCALE: 5/10 LOCATION: Substernal chest TECHNIQUE: The patient underwent pharmacologic stress with infusion of prescribed dose. Continuous ECG tracing was monitored during stress. Gated SPECT imaging was performed after stress and conventional SPECT i maging was performed at rest. The examination was performed on a SPECT/CT scanner, both attenuation and non-corrected datasets were reviewed. FINDINGS: DISTRIBUTION: The maximum perfused segment at stress is in the lateral wall. PERFUSION STUDY: The pattern of perfusion at stress is within normal limits. GATED STUDY: There is intact wall motion and thickening without hypokinetic or dyskinetic segments. CONCLUSION: 1. Unremarkable myocardial perfusion scan. RISK CATEGORY: Low (<1% Annual Mortality Rate) John Garnica MD on March 07, 2017 at 11:05 Board Certified Radiologist. This report was verified electronically.
--- NOTE | 2017-03-07 12:12 | HHI.DCPOC ---
Discharge Care Plan Diagnosis: (1) Chest pain (2) Hypertension (3) Tobacco abuse (4) H/O heart artery stent Goals to Promote Your Health YOU SHOULD BE TAKING CHOLESTEROL MEDICATIONS WITH YOUR HISTORY OF HEART DISEASE. DISCUSS THIS WITH YOUR PHYSICIAN. * To prevent worsening of your condition and complications * To maintain your health at the optimal level Directions to Meet Your Goals Take your medications as prescribed Follow your dietary instruction Follow activity as directed Keep your appointments as scheduled Take your immunizations and boosters as scheduled If your symptoms worsen call your PCP, if no PCP go to Urgent Care Center or Emergency Room Smoking is Dangerous to Your Health. Avoid second hand smoke Call the 24-hour hour crisis hotline for domestic abuse at [facility] [place] Mar 07, 2017 12:12
--- NOTE | 2017-03-07 14:57 | EKG ---
Date Performed: 03/06/2017 Time Performed: 15:38:21 PTAGE: 47 years EKG: SINUS BRADYCARDIA LEFT VENTRICULAR HYPERTROPHY AND ST-T CHANGE ABNORMAL ECG PREVIOUS TRACING : 03/06/2017 12.44 Since previous tracing, no significant change noted DOCTOR: John Garcia Interpretating Date/Time 03/07/2017 14:56:28
--- NOTE | 2017-03-07 14:57 | EKG ---
Date Performed: 03/06/2017 Time Performed: 18:39:40 PTAGE: 47 years EKG: Sinus rhythm ST ELEVATION CONSISTENT WITH INJURY, PERICARDITIS, OR EARLY REPOLARIZATION ST DEVIATION AND MODERATE T-WAVE ABNORMALITY, CONSIDER LATERAL ISCHEMIA ABNORMAL ECG PREVIOUS TRACING : 03/06/2017 15.38 Since previous tracing, no significant change noted DOCTOR: John Garcia Interpretating Date/Time 03/07/2017 14:56:16
--- NOTE | 2017-03-07 14:59 | EKG ---
Date Performed: 03/06/2017 Time Performed: 12:44:42 PTAGE: 47 years EKG: Sinus rhythm LEFT VENTRICULAR HYPERTROPHY AND ST-T CHANGE ABNORMAL ECG PREVIOUS TRACING : 10/19/2015 05.37 Since previous tracing, no significant change noted DOCTOR: John Garcia Interpretating Date/Time 03/07/2017 14:57:50
--- NOTE | 2017-03-07 15:00 | TR ---
Date Performed: 03/07/2017 Time Performed: 09:57:10 DOCTOR: John Garcia DRUG LIST: CLINICAL HISTORY: ANGINA REASON FOR TEST: Angina REASON FOR ENDING: OBSERVATION: CONCLUSION: Lexiscan stress test was performed under standard four minute protocol. Radionuclid e was injected one minute prior to ending the test. No electrocardiographic abormalities were present to suggest ischemia. Nuclear imaging and interpretation are pending. COMMENTS:
== END 2017-03-07 13:01 | disposition home or self-care (01) ==
LOC: NEPE 12:30 → NEDA 13:54 → NEPFCDU 16:18
PROVIDERS: ADMIT Internal Medicine Interventional Cardiology; ATTEND Internal Medicine Interventional Cardiology
DX: R07.89 Other chest pain (principal); R07.2 Precordial pain; R06.02 Shortness of breath; R00.2 Palpitations; R61 Generalized hyperhidrosis; R11.0 Nausea; R42 Dizziness and giddiness; R00.1 Bradycardia, unspecified; I11.9 Hypertensive heart disease without heart failure; R94.31 Abnormal electrocardiogram [ECG] [EKG]; I25.119 Atherosclerotic heart disease of native coronary artery with unspecified angina pectoris; I25.2 Old myocardial infarction; E78.00 Pure hypercholesterolemia, unspecified; E03.9 Hypothyroidism, unspecified; F41.9 Anxiety disorder, unspecified; F32.9 Major depressive disorder, single episode, unspecified; M54.9 Dorsalgia, unspecified; G89.29 Other chronic pain; M19.90 Unspecified osteoarthritis, unspecified site; F17.210 Nicotine dependence, cigarettes, uncomplicated; F12.90 Cannabis use, unspecified, uncomplicated; Z79.899 Other long term (current) drug therapy; Z79.82 Long term (current) use of aspirin; Z95.5 Presence of coronary angioplasty implant and graft
CPT/HCPCS: 71010; 78452; 80053; 82550; 82552; 83690; 83735; 84439; 84443; 84484; 85025; 85610; 85730; 93005; 93017; 99285; A9502; G0378; J2785

== ENCOUNTER 2017-04-08 07:58 | Emergency (ER) | payer OTHER ==
[~2017-04-08] VITALS: Ht 177.8 cm; Wt 88.4 kg
[~2017-04-08 07:58] MED LIST changes: +ASPI-516 CHEW; -HYDR-3583 PO; +LISI10TA3 PO; +OXYC1TAB36 PO
[2017-04-08 08:01] VITALS: BP 193/102; PULSE 82; RESP 16; TEMP 97.9; O2SAT 98
[2017-04-08] MEDS ORDERED: BACL20TA PO (08:11)
[2017-04-08] MEDS ORDERED: KETOROLAC TROMETHAMINE 60 MG/2 ML (IM) VIAL IM ONE (08:30)
--- NOTE | 2017-04-08 08:37 | PD ---
HPI Chief Complaint: Back/ Neck Pain or Injury Time Seen by Provider: 08:18 Travel History International Travel<30 days: No Contact w/Intl Traveler<30days: No Traveled to known affect area: No History of Present Illness HPI This patient complains of a flare of his chronic back pain. He's had back pain for the last 15 years. He takes hydrocodone and muscle relaxants and anti- inflammatory medication. He follows with Dr. Luna. No acute injury. 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 Symptoms severity is moderate PFSH Past Medical History Hx Anticoagulant Therapy: Yes (BABY ASA DAILY) Arthritis: Yes Asthma: No Autoimmune Disease: No Blood Disorders: No Anxiety: Yes Depression: Yes Heart Rhythm Problems: No Cancer: No Cardiac Catheterization: Yes (X2) Cardiovascular Problems: Yes (SC, HTN) High Cholesterol: Yes Chemotherapy: No Chest Pain: Yes Congestive Heart Failure: No COPD: No Cerebrovascular Accident: No Coronary Artery Disease: Yes Diabetes: No Diminished Hearing: No GERD: No Genitourinary: No Hepatitis: No Hiatal Hernia: No Hypertension: Yes Immune Disorder: No Kidney Stones: No Musculoskeletal: Yes (chronic back pain) Neurologic: No Psychiatric: No Reproductive: No Respiratory: No Migraines: Yes Myocardial Infarction: Yes Radiation Therapy: No Renal Failure: No Seizures: No Sickle Cell Disease: No Sleep Apnea: No Thyroid Disease: Yes Ulcer: No Influenza Vaccination: No PNEUMOCCOCAL Vaccine (Year): 2 Past Surgical History Abdominal Surgery: No AICD: No Arteriovenous Shunt: No Coronary Artery Bypass Graft: No Coronary Stent: Yes Ear Surgery: No Endocrine Surgery: Yes (Thyroidectomy ) Eye Surgery: No Genitourinary Surgery: No Insulin Pump: No Joint Replacement: No Oral Surgery: No Pacemaker: No Thoracic Surgery: No Social History Alcohol Use: Yes (occ) Tobacco Use: Yes (/2 ppd) Substance Use: Yes (marijuana) Allergies-Medications (Allergen,Severity, Reaction): Coded Allergies: banana (Unverified Allergy, Severe, GI UPSET, 04/08/17) morphine (Unverified Allergy, Severe, Rash, 04/08/17) Reported Meds & Prescriptions Reported Meds & Active Scripts Active Lisinopril 10 Mg Tab 10 Mg PO DAILY Reported Baclofen 20 Mg Tab 20 Mg PO TID Oxycodone-Acetaminophen 10-325 mg Tab 1 Tab PO Q6H PRN Aspirin 81 Mg Chew 81 Mg CHEW DAILY Synthroid (Levothyroxine Sodium) 175 Mcg Tab 175 Mcg PO DAILY Review of Systems General / Constitutional: No: Fever HENT: No: Headaches Cardiovascular: No: Chest Pain or Discomfort Respiratory: No: Cough Physical Exam Narrative GASTROINTESTINAL: Abdomen soft, non-tender, nondistended. Positive bowel sounds. No hepato-splenomegaly, or palpable masses. No guarding. SKIN: Focused skin assessment reveals no rash or ulcers. Skin is warm and dry. Palpation shows no induration or nodules. NEUROLOGICAL: Awake and alert. Pupils are equal round and reactive. Motor and sensory grossly within normal limits. Five out of 5 muscle strength in all muscle groups. Normal speech. Data Data Last Documented VS Vital Signs Date Time Temp Pulse Resp B/P (MAP) Pulse Ox O2 Delivery O2 Flow Rate FiO2 04/08/17 08:01 97.9 82 16 193/102 (132) 98 Orders Orders Ketorolac Inj (Toradol Inj) (04/08/17 08:30) [facility] Medical Decision Making Medical Screen Exam Complete: Yes Emergency Medical Condition: Yes Medical Record Reviewed: Yes Differential Diagnosis Sciatica, lumbar strain, chronic back pain flare Narrative Course I have reviewed the patient's electronic medical record. Patient was seen here for chronic back pain 2 years ago Patient is neurologically intact. No red flags to suggest emergent imaging is indicated. I gave him Toradol injection. He is driving I don't want to sedate him. He wants A work note for this week, I have given him one for today Diagnosis Primary Impression: Chronic lower back pain Qualified Codes: M54.42 - Lumbago with sciatica, left side; G89.29 - Other chronic pain Additional Instructions: The patient was advised to follow up with their physician and return if they worsen. Med/Other Pt SpecificInfo: Other Disposition: 01 DISCHARGE HOME Condition: Stable Anderson Quevedo MD Apr 08, 2017 08:37
== END 2017-04-08 08:52 | disposition home or self-care (01) ==
LOC: PHED 07:58
DX: M54.5 Low back pain (principal); G89.29 Other chronic pain; M19.90 Unspecified osteoarthritis, unspecified site; F41.9 Anxiety disorder, unspecified; F32.9 Major depressive disorder, single episode, unspecified; I10 Essential (primary) hypertension; I25.10 Atherosclerotic heart disease of native coronary artery without angina pectoris; E78.00 Pure hypercholesterolemia, unspecified; I25.2 Old myocardial infarction
CPT/HCPCS: 96372; 99284; J1885

== ENCOUNTER 2017-04-10 12:50 | Emergency (ER) | payer OTHER ==
[~2017-04-10] VITALS: Ht 177.8 cm; Wt 88.5 kg
[~2017-04-10 12:50] MED LIST changes: +BACL20TA PO
[2017-04-10 12:51] VITALS: BP 176/95; PULSE 70; RESP 16; TEMP 98.6; O2SAT 100
--- NOTE | 2017-04-10 13:20 | PD ---
HPI Chief Complaint: Pain: Acute or Chronic Time Seen by Provider: 13:05 Travel History International Travel<30 days: No Contact w/Intl Traveler<30days: No Traveled to known affect area: No History of Present Illness HPI 47-year-old male came to the emergency room with history of lower back pain. Patient has history of chronic back pain. He said he pulled some boxes at his work and since then it has started to hurt again. This been going on for past 3 -4 days. He went to the emergency room in [place] 2-3 days ago and was given a shot of Toradol. Patient says it took the edge off but the pain is still there. 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 Patient came back since the pain is still there. Vital signs are stable. [facility] Past Medical History Narrative Medical List of his past medical, surgical, social and family history is reviewed from the nursing note. Hx Anticoagulant Therapy: Yes (BABY ASA DAILY) Arthritis: Yes Asthma: No Autoimmune Disease: No Blood Disorders: No Anxiety: Yes Depression: Yes Heart Rhythm Problems: No Cancer: No Cardiac Catheterization: Yes (X2) Cardiovascular Problems: Yes (SD, HTN) High Cholesterol: Yes Chemotherapy: No Chest Pain: Yes Congestive Heart Failure: No COPD: No Cerebrovascular Accident: No Coronary Artery Disease: Yes Diabetes: No Diminished Hearing: No GERD: No Genitourinary: No Hepatitis: No Hiatal Hernia: No Hypertension: Yes Immune Disorder: No Kidney Stones: No Musculoskeletal: Yes (chronic back pain) Neurologic: No Psychiatric: No Reproductive: No Respiratory: No Migraines: Yes Myocardial Infarction: Yes Radiation Therapy: No Renal Failure: No Seizures: No Sickle Cell Disease: No Sleep Apnea: No Thyroid Disease: Yes Ulcer: No PNEUMOCCOCAL Vaccine (Year): 2 Past Surgical History Abdominal Surgery: No AICD: No Arteriovenous Shunt: No Coronary Artery Bypass Graft: No Coronary Stent: Yes Ear Surgery: No Endocrine Surgery: Yes (Thyroidectomy ) Eye Surgery: No Genitourinary Surgery: No Insulin Pump: No Joint Replacement: No Oral Surgery: No Pacemaker: No Thoracic Surgery: No Social History Alcohol Use: Yes (occ) Tobacco Use: Yes (1/2 ppd) Substance Use: Yes (marijuana) Allergies-Medications (Allergen,Severity, Reaction): Coded Allergies: banana (Unverified Allergy, Severe, GI UPSET, 04/08/17) morphine (Unverified Allergy, Severe, Rash, 04/08/17) Comments List of his allergies reviewed from the nursing note. Reported Meds & Prescriptions Reported Meds & Active Scripts Active Lisinopril 10 Mg Tab 10 Mg PO DAILY Reported Baclofen 20 Mg Tab 20 Mg PO TID Oxycodone-Acetaminophen 10-325 mg Tab 1 Tab PO Q6H PRN Aspirin 81 Mg Chew 81 Mg CHEW DAILY Synthroid (Levothyroxine Sodium) 175 Mcg Tab 175 Mcg PO DAILY Narrative Medication List of his home medications reviewed from the nursing note. Review of Systems Except as stated in HPI: all other systems reviewed are Neg Musculoskeletal: Positive: Pain Physical Exam Narrative GENERAL: Awake, alert, no obvious distress SKIN: Focused skin assessment warm/dry. HEAD: Atraumatic. Normocephalic. EYES: Pupils equal and round. No scleral icterus. No injection or drainage. ENT: No nasal bleeding or discharge. Mucous membranes pink and moist. NECK: Trachea midline. No JVD. CARDIOVASCULAR: Regular rate and rhythm. No murmur appreciated. RESPIRATORY: No accessory muscle use. Clear to auscultation. Breath sounds equal bilaterally. GASTROINTESTINAL: Abdomen soft, non-tender, nondistended. Hepatic and splenic margins not palpable. MUSCULOSKELETAL: No obvious deformities. No clubbing. No cyanosis. No edema. Negative SLR NEUROLOGICAL: Awake and alert. No obvious cranial nerve deficits. Motor grossly within normal limits. Normal speech. PSYCHIATRIC: Appropriate mood and affect; insight and judgment normal. Data Data Last Documented VS Vital Signs Date Time Temp Pulse Resp B/P (MAP) Pulse Ox O2 Delivery O2 Flow Rate FiO2 04/10/17 14:06 04/10/17 12:51 98.6 70 16 100 Orders Orders Ketorolac Inj (Toradol Inj) (04/10/17 13:30) Orphenadrine Inj (Norflex Inj) (04/10/17 13:30) Ed Discharge Order (04/10/17 13:30) [facility] Medical Decision Making Medical Screen Exam Complete: Yes Emergency Medical Condition: Yes Medical Record Reviewed: Yes Differential Diagnosis Lumbar radiculopathy, acute on chronic back pain Narrative Course 1:32 PM patient is given another dose of Toradol and Norflex this time. I'll discharge him home. Instructed him to call his paint roller cover machine setter tomorrow and follow-up with him for further management. Procedures EKG Prior to Arrival: No Diagnosis Primary Impression: Acute exacerbation of chronic low back pain Referrals: Primary Care Physician Departure Forms: Tests/Procedures, Work Release Enter return to work date: Apr 12, 2017 Additional Instructions: Follow-up with your paint roller cover machine setter for further management of your back pain. Do not lift weight heavier than 5 pounds. Med/Other Pt SpecificInfo: No Change to Meds Disposition: 01 DISCHARGE HOME Condition: Stable William Blue MD Apr 10, 2017 13:20
[2017-04-10] MEDS ORDERED: KETOROLAC TROMETHAMINE 60 MG/2 ML (IM) VIAL IM ONE (13:30)
[2017-04-10] MEDS ORDERED: ORPHENADRINE INJ 60 MG/2 ML AMP IM ONE (13:30)
== END 2017-04-10 14:08 | disposition home or self-care (01) ==
LOC: NEPD 12:50
DX: M54.5 Low back pain (principal); G89.29 Other chronic pain; I10 Essential (primary) hypertension; I25.10 Atherosclerotic heart disease of native coronary artery without angina pectoris; E78.00 Pure hypercholesterolemia, unspecified; I25.2 Old myocardial infarction; F41.9 Anxiety disorder, unspecified; F32.9 Major depressive disorder, single episode, unspecified; E07.9 Disorder of thyroid, unspecified
CPT/HCPCS: 96372; 99284; J1885; J2360

== ENCOUNTER 2017-06-30 19:47 | Inpatient (IN) | payer OTHER ==
[~2017-06-30] VITALS: Ht 175.3 cm; Wt 90.0 kg
[2017-06-30 19:58] VITALS: BP 217/125; PULSE 76; RESP 20; TEMP 98.7; O2SAT 98
[2017-06-30] MEDS ORDERED: ONDANSETRON HCL 4 MG/2 ML VIAL IV PUSH ONE (20:15)
[2017-06-30] MEDS ORDERED: PROPOFOL 200 MG/20 ML AMP IV ONE (20:15)
[2017-06-30] MEDS ORDERED: HYDROmorphone HCL PF 2 MG/ML VIAL IV PUSH ONE ×2 (20:15→21:15)
[2017-06-30 20:28] VITALS: O2SAT 98
[2017-06-30 20:34] LABS: AUTOMATED NEUTROPHIL # 2.7 TH/MM3 (1.8-7.7); BASOPHIL % 0.8 % (0.0-2.0); EOSINOPHIL # 0.2 TH/MM3 (0-0.4); EOSINOPHIL % 3.9 % (0.0-4.0); HEMATOCRIT 42.3 % (39.0-51.0); HEMOGLOBIN 14.2 GM/DL (13.0-17.0); LYMPH % 31.6 % (9.0-44.0); LYMPHOCYTE # 1.6 TH/MM3 (1.0-4.8); MEAN CELL VOLUME 87.8 FL (80.0-100.0); MEAN CORPUSCULAR HEMOGLOBIN 29.4 PG (27.0-34.0); MEAN CORPUSCULAR HGB CONC 33.4 % (32.0-36.0); MEAN PLATELET VOLUME 8.2 FL (7.0-11.0); MONOCYTE # 0.5 TH/MM3 (0-0.9); NEUT % 53.7 % (16.0-70.0); PLATELET COUNT 251 TH/MM3 (150-450); RED BLOOD COUNT 4.82 MIL/MM3 (4.50-5.90); RED CELL DISTRIBUTION WIDTH 14.6 % (11.6-17.2); WHITE BLOOD COUNT 5.1 TH/MM3 (4.0-11.0)
[2017-06-30 21:02] VITALS: BP 142/94; PULSE 79; RESP 16; O2SAT 96
[2017-06-30] MEDS ORDERED: SODIUM CHLOR 0.9% 1000 ML INJ 1,000 ML IV SCH (21:18)
--- NOTE | 2017-06-30 21:18 | RADRPT ---
EXAM DATE/TIME: 06/30/2017 20:12 [facility] COMPARISON: CHEST SINGLE AP, March 06, 2017, 12:59. INDICATIONS : Shortness of breath. MEDICAL HISTORY : Myocardial infarction. SURGICAL HISTORY : Cardiac stent. ENCOUNTER: Initial ACUITY: 1 day PAIN SCORE: 0/10 LOCATION: Bilateral chest FINDINGS: A single view of the chest demonstrates the lungs to be symmetrically aerated without evidence of mas s, infiltrate or effusion. The cardiomediastinal contours are unremarkable. Osseous structures are intact. CONCLUSION: No acute disease. Yuri Stephenson MD on June 30, 2017 at 21:16 Board Certified Radiologist. This report was verified electronically.
--- NOTE | 2017-06-30 21:19 | RADRPT ---
EXAM DATE/TIME: 06/30/2017 20:13 [facility] COMPARISON: No previous studies available for comparison. INDICATIONS : Right ankle pain after getting caught in a wire and twisting ankle/foot. MEDICAL HISTORY : Cardiovascular disease. Myocardial infarction. Hypertension. SURGICAL HISTORY : Coronary artery stent. Thyroidectomy. ENCOUNTER: Initial ACUITY: 1 day PAIN SCORE: 10/10 LOCATION: Right ankle FINDINGS: There is an oblique fracture the distal fibula. The distal fibula maintains its alignment with the ta rocio. The distal fibular fragment and talus are laterally and posteriorly displaced at the ankle joint . The distal tibia appears grossly intact. CONCLUSION: Ankle dislocation with oblique fracture the distal fibula. Yuri Stephenson MD on June 30, 2017 at 21:16 Board Certified Radiologist. This report was verified electronically.
--- NOTE | 2017-06-30 21:20 | RADRPT ---
EXAM DATE/TIME: 06/30/2017 20:14 [facility] COMPARISON: No previous studies available for comparison. INDICATIONS : Right foot pain after getting caught in a wire and twisting ankle/foot. MEDICAL HISTORY : Cardiovascular disease. Myocardial infarction. Hypertension. SURGICAL HISTORY : Coronary artery stent. Thyroidectomy. ENCOUNTER: Initial ACUITY: 1 day PAIN SCORE: 10/10 LOCATION: Right foot FINDINGS: The bones of the foot appear intact. There is dislocation at the ankle and fracture at the distal fib moy. CONCLUSION: No abnormality seen within the foot. Yuri Stephenson MD on June 30, 2017 at 21:17 Board Certified Radiologist. This report was verified electronically.
--- NOTE | 2017-06-30 21:20 | HHI.HP ---
HPI Service [facility] Primary Care Physician No Primary Care Physician Admission Diagnosis Diagnoses: (1) Ankle fracture Diagnosis: Principal (2) HTN (hypertension) Diagnosis: Principal (3) Tobacco abuse Diagnosis: Principal Travel History International Travel<30 Days: No Contact w/Intl Traveler <30 Da: No Traveled to Known Affected Are: No History of Present Illness This is a 47-year-old male with a PMH of Anxiety, Depression, HTN and Tobacco Abuse who is brought to the ER secondary to complaints of right ankle pain. Patient states he was at his son's baseball game, son hit a home run at which time patient got excited and jumped up, twisted his right ankle when he landed. Pain is severe, constant, 10/10, worse with movement, nonradiating. On arrival, BP 217/125, HR 76, O2 sat 98% on RA, Afebrile. CBC unremarkable. Chemistry unremarkable. INR 1.1. CXR no acute findings. Ankle X-ray with ankle dislocation with oblique fracture of distal fibula. Review of Systems Except as stated in HPI: all other systems reviewed are Neg ROS: 14 point review of systems otherwise negative. Past Family Social History Past Medical History PMH: Anxiety, Depression, HTN and Tobacco Abuse Past Surgical History PAST SURGICAL HISTORY: Cardiac Stent, Thyroidectomy Allergies: Coded Allergies: banana (Unverified Allergy, Severe, GI UPSET, 06/30/17) morphine (Unverified Allergy, Severe, Rash, 06/30/17) Family History PAST FAMILY HISTORY: Reviewed. No h/o DM or CAD Social History PAST SOCIAL HISTORY: Occasional alcohol. Positive for tobacco. Occasional Marijuana Physical Exam Vital Signs Vital Signs Date Time Temp Pulse Resp B/P (MAP) Pulse Ox O2 Delivery O2 Flow Rate FiO2 06/30/17 21:02 79 16 142/94 (110) 96 Room Air 06/30/17 20:28 98 Room Air 06/30/17 19:58 98.7 76 20 217/125 (155) 98 Physical Exam PE: GENERAL: Very pleasant middle-aged black male in no acute distress. Family at bedside HEENT: PERRLA, EOMI. No scleral icterus or conjunctival pallor. No lid lag or facial droop. CARDIOVASCULAR: Regular rate and rhythm. No obvious murmurs to auscultation. No chest tenderness to palpation. RESPIRATORY: No obvious rhonchi or wheezing. Clear to auscultation. Breath sounds equal bilaterally. GASTROINTESTINAL: Abdomen soft, non-tender, nondistended. BS normal. MUSCULOSKELETAL: Extremities without clubbing, cyanosis, or edema. No obvious deformities. RLE in splint. NEUROLOGICAL: Awake, alert and oriented x4. No focal neurologic deficits. Moving both upper and lower extremities spontaneously. Laboratory Laboratory Tests Test 06/30/17 20:05 06/30/17 21:05 White Blood Count 5.1 Red Blood Count 4.82 Hemoglobin 14.2 Hematocrit 42.3 Mean Corpuscular Volume 87.8 Mean Corpuscular Hemoglobin 29.4 Mean Corpuscular Hemoglobin Concent 33.4 Red Cell Distribution Width 14.6 Platelet Count 251 Mean Platelet Volume 8.2 Neutrophils (%) (Auto) 53.7 Lymphocytes (%) (Auto) 31.6 Monocytes (%) (Auto) 10.0 Eosinophils (%) (Auto) 3.9 Basophils (%) (Auto) 0.8 Neutrophils # (Auto) 2.7 Lymphocytes # (Auto) 1.6 Monocytes # (Auto) 0.5 Eosinophils # (Auto) 0.2 Basophils # (Auto) 0.0 CBC Comment DIFF FINAL Differential Comment Result Diagram: 06/30/172004 Caprini VTE Risk Assessment Caprini VTE Risk Assessment: No/Low Risk (score <= 1) Caprini Risk Assessment Model Point Value = 1 Point Value = 2 Point Value = 3 Point Value = 5 Age 41-60 Minor surgery BMI > 25 kg/m2 Swollen legs Varicose veins or History of unexplained or recurrent spontaneous Oral contraceptives or hormone replacement Sepsis (< 1 month) Serious lung disease, including pneumonia (< 1 month) Abnormal pulmonary function Acute myocardial infarction Congestive heart failure (< 1 month) History of inflammatory bowel disease Medical patient at bed rest Age 61-74 Arthroscopic surgery Major open surgery (> 45 min) Laparoscopic surgery (> 45 min) Malignancy Confined to bed (> 72 hours) Immobilizing plaster cast Central venous access Age >= 75 History of VTE Family history of VTE Factor V Leiden Prothrombin [id number] Lupus anticoagulant Anticardiolipin antibodies Elevated serum homocysteine Heparin-induced thrombocytopenia Other congenital or acquired thrombophilia Stroke (< 1 month) Elective arthroplasty Hip, pelvis, or leg fracture Acute spinal cord injury (< 1 month) Prophylaxis Regimen Total Risk Factor Score Risk Level Prophylaxis Regimen 0-1 Low Early ambulation 2 Moderate Order ONE of the following: *Sequential Compression Device (SCD) *Heparin 5000 units SQ BID 3-4 Higher Order ONE of the following medications: *Heparin 5000 units SQ TID *Enoxaparin/Lovenox 40 mg SQ daily (WT < 150 kg, CrCl > 30 mL/min) *Enoxaparin/Lovenox 30 mg SQ daily (WT < 150 kg, CrCl > 10-29 mL/min) *Enoxaparin/Lovenox 30 mg SQ BID (WT < 150 kg, CrCl > 30 mL/min) AND/OR *Sequential Compression Device (SCD) 5 or more Highest Order ONE of the following medications: *Heparin 5000 units SQ TID (Preferred with Epidurals) *Enoxaparin/Lovenox 40 mg SQ daily (WT < 150 kg, CrCl > 30 mL/min) *Enoxaparin/Lovenox 30 mg SQ daily (WT < 150 kg, CrCl > 10-29 mL/min) *Enoxaparin/Lovenox 30 mg SQ BID (WT < 150 kg, CrCl > 30 mL/min) AND *Sequential Compression Device (SCD) Assessment and Plan Problem List: (1) Ankle fracture ICD Code: S82.899A - Other fracture of unspecified lower leg, initial encounter for closed fracture (2) HTN (hypertension) ICD Code: I10 - Essential (primary) hypertension (3) Tobacco abuse ICD Code: Z72.0 - Tobacco use Assessment and Plan A/P: 1. Right Ankle Fx: X-ray w/ ankle dislocation and oblique fracture of distal fibula, images reviewed by me. Consult Ortho for further evaluation/surgical intervention. NPO, IVF, analgesics/antiemetics as needed. Pre-op labs reviewed by me, essentially unremarkable. 2. HTN: Uncontrolled. BP 217/125, HR 76 on arrival, likely compounded by pain , resume home Lisinopril, monitor BP, pain control. 3. Tobacco Abuse: Pt counselled. NicoDerm prn if needed. 4. DVT Prophylaxis: Anticoagulation post op 5. Social work for d/c planning as needed. 6. Case discussed w/ ER physician at length, labs/records/imaging reviewed by me. Physician Certification 2 Midnight Certification Type: Admission for Inpatient Services Order for Inpatient Services The services are ordered in accordance with Medicare regulations or non- Medicare payer requirements, as applicable. In the case of services not specified as inpatient-only, they are appropriately provided as inpatient services in accordance with the 2-midnight benchmark. Estimated LOS (days): 2 days is the estimated time the patient will need to remain in the hospital, assuming treatment plan goals are met and no additional complications. Post-Hospital Plan: Not yet determined Tammie Kraft MD Jun 30, 2017 21:20
--- NOTE | 2017-06-30 21:23 | PD ---
HPI Chief Complaint: Injury Time Seen by Provider: 20:00 Travel History International Travel<30 days: No Contact w/Intl Traveler<30days: No Traveled to known affect area: No History of Present Illness HPI 47-year-old male that presents to the ED for evaluation of injury to his right ankle. Per patient he was watching his son's baseball game when his son hit the ball well and jumped and landed and possibly tripped on a cord when he fell. Patient has an obvious dislocation and injury to his right ankle. He denies any numbness, tingling, weakness. Patient has been a 10 out of 10. Injury occurred less than an hour ago. Patient was brought here by ambulance for evaluation of this. He denies any prior injuries or broken bones to this ankle. He states having some chronic back problems and hypertension. Denies any urinary or bowel movement issues. No head injury loss of consciousness. No blood thinner use. Per patient the pain is mostly to the leg and specifically to the ankle. PFSH Past Medical History Hx Anticoagulant Therapy: Yes (BABY ASA DAILY) Arthritis: Yes Asthma: No Autoimmune Disease: No Blood Disorders: No Anxiety: Yes Depression: Yes Heart Rhythm Problems: No Cancer: No Cardiac Catheterization: Yes (X2) Cardiovascular Problems: Yes (DC, HTN) High Cholesterol: Yes Chemotherapy: No Chest Pain: Yes Congestive Heart Failure: No COPD: No Cerebrovascular Accident: No Coronary Artery Disease: Yes Diabetes: No Diminished Hearing: No Endocrine: Yes GERD: No Genitourinary: No Hepatitis: No Hiatal Hernia: No Hypertension: Yes Immune Disorder: No Kidney Stones: No Medical other: No Musculoskeletal: Yes (chronic back pain) Neurologic: No Psychiatric: No Reproductive: No Respiratory: No Migraines: Yes Myocardial Infarction: Yes Radiation Therapy: No Renal Failure: No Seizures: No Sickle Cell Disease: No Sleep Apnea: No Thyroid Disease: Yes Ulcer: No PNEUMOCCOCAL Vaccine (Year): 2 Past Surgical History Abdominal Surgery: No AICD: No Arteriovenous Shunt: No Cardiac Surgery: Yes (STENTS X 2) Coronary Artery Bypass Graft: No Coronary Stent: Yes Ear Surgery: No Endocrine Surgery: Yes (Thyroidectomy ) Eye Surgery: No Genitourinary Surgery: No Insulin Pump: No Joint Replacement: No Oral Surgery: No Pacemaker: No Thoracic Surgery: No Other Surgery: Yes Social History Alcohol Use: Yes (occ) Tobacco Use: Yes (1/2 ppd) Substance Use: Yes (marijuana OCC) Allergies-Medications (Allergen,Severity, Reaction): Coded Allergies: banana (Unverified Allergy, Severe, GI UPSET, 06/30/17) morphine (Unverified Allergy, Severe, Rash, 06/30/17) Reported Meds & Prescriptions Reported Meds & Active Scripts Active Lisinopril 10 Mg Tab 10 Mg PO DAILY Reported Baclofen 20 Mg Tab 20 Mg PO TID Oxycodone-Acetaminophen 10-325 mg Tab 1 Tab PO Q6H PRN Aspirin 81 Mg Chew 81 Mg CHEW DAILY Synthroid (Levothyroxine Sodium) 175 Mcg Tab 175 Mcg PO DAILY Review of Systems Except as stated in HPI: all other systems reviewed are Neg Physical Exam Narrative GENERAL: SKIN: Warm and dry. HEAD: Atraumatic. Normocephalic. EYES: Pupils equal and round. No scleral icterus. No injection or drainage. ENT: No nasal bleeding or discharge. Mucous membranes pink and moist. Tongue is midline. No uvula deviation. NECK: Trachea midline. No JVD. CARDIOVASCULAR: Regular rate and rhythm. RESPIRATORY: No accessory muscle use. Clear to auscultation. Breath sounds equal bilaterally. GASTROINTESTINAL: Abdomen soft, non-tender, nondistended. Hepatic and splenic margins not palpable. MUSCULOSKELETAL: Extremities without clubbing, cyanosis, or edema. No obvious deformities. Full range of motion of the upper and lower extremities bilaterally with exception of the right foot. Patient has obvious dislocation of the right ankle what appears to be likely fracture. Patient has 2+ pulses to the dorsalis pedis and posterior tibialis. Good sensation to the toes. Dislocation appears to be lateral at the level of the ankle. NEUROLOGICAL: Awake and alert. No obvious cranial nerve deficits. Motor grossly within normal limits. Five out of 5 muscle strength in the arms and legs. Normal speech. PSYCHIATRIC: Appropriate mood and affect; insight and judgment normal. Data Data Last Documented VS Vital Signs Date Time Temp Pulse Resp B/P (MAP) Pulse Ox O2 Delivery O2 Flow Rate FiO2 06/30/17 21:02 79 16 142/94 (110) 96 Room Air 06/30/17 19:58 98.7 Orders Orders Propofol 200 Mg/20 Ml Inj (Diprivan 200 (06/30/17 20:15) Foot, Limited (2vws) (06/30/17 ) Ankle, Limited (Ap&Lat) (06/30/17 ) Complete Blood Count With Diff (06/30/17 20:01) Basic Metabolic Panel (Bmp) (06/30/17 20:01) Prothrombin Time / Inr (Pt) (06/30/17 20:01) Act Partial Throm Time (Ptt) (06/30/17 20:01) Magnesium (Mg) (06/30/17 20:01) Chest, Single Ap (06/30/17 20:01) Iv Access Insert/Monitor (06/30/17 20:01) Ecg Monitoring (06/30/17 20:01) Oximetry (06/30/17 20:01) Hydromorphone Pf Inj (Dilaudid Pf Inj) (06/30/17 20:15) Ondansetron Inj (Zofran Inj) (06/30/17 20:15) Splint Or Brace Apply/Monitor (06/30/17 20:06) Tibia/Fibula (Ap/Lat) (06/30/17 ) Hydromorphone Pf Inj (Dilaudid Pf Inj) (06/30/17 21:15) Type And Screen (06/30/17 21:01) Fiberglass Short Leg Splint Ad (06/30/17 ) Fiberglass Sugartong Sp Ad Sl (06/30/17 ) Ice Cuff (06/30/17 ) Admit To Inpatient (06/30/17 ) Vital Signs (Adult) Q4H (06/30/17 21:18) Activity Bed Rest (06/30/17 21:18) Diet Npo (07/01/17 Breakfast) Diet Regular Basic (06/30/17 Dinner) Sodium Chlor 0.9% 1000 Ml Inj (Ns 1000 M (06/30/17 21:18) Sodium Chloride 0.9% Flush (Ns Flush) (06/30/17 21:30) Sodium Chloride 0.9% Flush (Ns Flush) (07/01/17 09:00) Ondansetron Inj (Zofran Inj) (06/30/17 21:30) Comprehensive Metabolic Panel (07/01/17 06:00) Complete Blood Count With Diff (07/01/17 06:00) Case Management Consult (06/30/17 21:18) Acetaminophen (Tylenol) (06/30/17 21:30) Acetamin-Hydrocod 325-5 Mg ([place] 5-325 (06/30/17 21:30) Docusate Sodium-Senna (Ananya-Colace) (07/01/17 09:00) Magnesium Hydroxide Liq (Milk Of Magnesi (06/30/17 21:30) Sennosides (Senokot) (06/30/17 21:30) Bisacodyl Supp (Dulcolax Supp) (06/30/17 21:30) Lactulose Liq (Lactulose Liq) (06/30/17 21:30) Inpatient Certification (06/30/17 ) Baclofen (Lioresal) (07/01/17 09:00) Lisinopril (Prinivil) (07/01/17 09:00) Admit Order (Ed Use Only) (06/30/17 21:23) Consult Orthopedic (06/30/17 ) Levothyroxine (Synthroid) (06/30/17 21:30) Hydromorphone Pf Inj (Dilaudid Pf Inj) (06/30/17 21:30) Labs Laboratory Tests Test 06/30/17 20:05 06/30/17 21:05 White Blood Count 5.1 TH/MM3 Red Blood Count 4.82 MIL/MM3 Hemoglobin 14.2 GM/DL Hematocrit 42.3 % Mean Corpuscular Volume 87.8 FL Mean Corpuscular Hemoglobin 29.4 PG Mean Corpuscular Hemoglobin Concent 33.4 % Red Cell Distribution Width 14.6 % Platelet Count 251 TH/MM3 Mean Platelet Volume 8.2 FL Neutrophils (%) (Auto) 53.7 % Lymphocytes (%) (Auto) 31.6 % Monocytes (%) (Auto) 10.0 % Eosinophils (%) (Auto) 3.9 % Basophils (%) (Auto) 0.8 % Neutrophils # (Auto) 2.7 TH/MM3 Lymphocytes # (Auto) 1.6 TH/MM3 Monocytes # (Auto) 0.5 TH/MM3 Eosinophils # (Auto) 0.2 TH/MM3 Basophils # (Auto) 0.0 TH/MM3 CBC Comment DIFF FINAL Differential Comment Blood Urea Nitrogen 12 MG/DL Creatinine 0.96 MG/DL Random Glucose 95 MG/DL Calcium Level 8.6 MG/DL Magnesium Level 2.1 MG/DL Sodium Level 136 MEQ/L Potassium Level 5.0 MEQ/L Chloride Level 105 MEQ/L Carbon Dioxide Level 22.8 MEQ/L Anion Gap 8 MEQ/L Estimat Glomerular Filtration Rate 101 ML/MIN MDM Medical Decision Making Medical Screen Exam Complete: Yes Emergency Medical Condition: Yes Medical Record Reviewed: Yes Interpretation(s) Last Impressions Chest X-Ray 06/30/172000 Signed Impressions: Service Date/Time: June 20:12 - CONCLUSION: No acute disease. Yuri Stephenson MD Foot X-Ray 06/30/17 0000 Signed Impressions: Service Date/Time: June 20:14 - CONCLUSION: No abnormality seen within the foot. Yuri Stephenson MD Ankle X-Ray 06/30/17 0000 Signed Impressions: Service Date/Time: June 20:13 - CONCLUSION: Ankle dislocation with oblique fracture the distal fibula. Yuri Stephenson MD CBC & BMP Diagram 06/30/17 20:05 Calcium Level 8.6, Magnesium Level 2.1 Differential Diagnosis Fracture versus dislocation versus bony injury Narrative Course 39-year-old male that presents to the ED for evaluation of injury to his right ankle. Patient was properly examined and was found to have signs and symptoms consistent with dislocation and fracture. X-rays were done. IV was established and pain meds used. My attending Dr. Hudson was made aware of case and agrees with plan. After x-rays were done and confirmed dislocation and fracture recommendation is for conscious sedation for reduction. Patient agreed with this. Paperwork for conscious sedation was signed by patient himself. Patient was made aware of risks including loss of limb as well as respiratory failure and . Patient agreed with proceeding with plan. Please refer to my attendings note for conscious sedation. With the help of vp of technology using backwards fraction foot and ankle were reduced with minimal discomfort for the patient. Splint was put in place. X-rays were done and did show good reduction of the tibia as well as some of the fibula but there still appears to be a comminuted fracture of the fibula. Posterior reduction pulses appear to be intact and patient has good sensation. Case discussed with my attending Dr Hudson who recommends admission for further eval and recommends routine ortho consult. At this time recommendations for admission for further eval and orthopedic consult for surgery. Case discussed with Dr. Kraft who agrees to admission. Diagnosis Primary Impression: Ankle fracture, right Qualified Codes: S82.891A - Other fracture of right lower leg, initial encounter for closed fracture Admitting Information Admitting Physician Requests: Armand Prabhakar Jun 30, 2017 21:23
[2017-06-30 21:29] LABS: BICARBONATE 22.8 MEQ/L (21.0-32.0); CALCIUM 8.6 MG/DL (8.5-10.1); CREATININE 0.96 MG/DL (0.60-1.30); MAGNESIUM 2.1 MG/DL (1.5-2.5)
[2017-06-30] MEDS ORDERED: MAGNESIUM HYDROXIDE SUSP 30 ML CUP PO PRN (21:30)
[2017-06-30] MEDS ORDERED: BISACODYL 10 MG SUPP RECTAL PRN (21:30)
[2017-06-30] MEDS ORDERED: SENNOSIDES 8.6 MG TAB PO PRN (21:30)
[2017-06-30] MEDS ORDERED: ACETAMINOPHEN 325 MG TAB PO PRN (21:30)
[2017-06-30] MEDS ORDERED: ONDANSETRON HCL 4 MG/2 ML VIAL IVP PRN (21:30)
[2017-06-30] MEDS ORDERED: SODIUM CHLORIDE 0.9% FLUSH 10 ML FLUSH IV FLUSH PRN (21:30)
[2017-06-30] MEDS ORDERED: LACTULOSE SYRUP 20 GM/30 ML CUP PO PRN (21:30)
[2017-06-30] MEDS ORDERED: ACETAMINOPHEN/HYDROcodone 325 MG/5 MG TAB PO PRN (21:30)
--- NOTE | 2017-06-30 21:35 | RADRPT ---
EXAM DATE/TIME: 06/30/2017 20:52 [facility] COMPARISON: ANKLE RIGHT LIMITED (AP&LAT), June 30, 2017, 20:13. INDICATIONS : Post reduction right ankle, has pain shooting up tibia/fibula. MEDICAL HISTORY : Cardiovascular disease. Myocardial infarction. Hypertension. SURGICAL HISTORY : Coronary artery stent. Thyroidectomy. ENCOUNTER: Subsequent ACUITY: 1 day PAIN SCORE: 8/10 LOCATION: Right tibia/fibula FINDINGS: There continues to be lateral subluxation of the talus at the ankle. The medial ankle mortise measure s 1.3 cm. Again noted is the oblique fracture of the distal fibula. This is posterior limb positioned in relation to the more proximal fibula. CONCLUSION: Significant reduction in the previously seen ankle dislocation with the ankle mortise still widened. Yuri Stephenson MD on June 30, 2017 at 21:32 Board Certified Radiologist. This report was verified electronically.
[2017-06-30 21:38] LABS: INTERNATIONAL NORMALIZED RATIO 1.1 RATIO; PROTHROMBIN TIME - PATIENT 11.4 SEC (9.8-11.6)
[2017-06-30] MEDS: HYDROmorphone HCL PF 2 MG/ML VIAL IV PUSH PRN (21:40)
[2017-06-30] MEDS ORDERED: ZOLPIDEM TARTRATE 5 MG TAB PO PRN (22:15)
[2017-06-30 22:30] VITALS: O2SAT 99
[2017-06-30 23:00] VITALS: BP 157/71; PULSE 76; RESP 18; TEMP 98.8; O2SAT 93
[2017-07-01] MEDS: HYDROmorphone HCL PF 2 MG/ML VIAL IV PUSH PRN ×3 (00:25→06:16)
[2017-07-01 04:21] VITALS: BP 171/91; PULSE 82; RESP 18; TEMP 98.3; O2SAT 96
[2017-07-01] MEDS ORDERED: LEVOTHYROXINE SODIUM 100 MCG TAB PO SCH (06:00)
[2017-07-01] MEDS ORDERED: LEVOTHYROXINE SODIUM 75 MCG TAB PO SCH (06:00)
[2017-07-01 07:08] VITALS: BP 191/91; PULSE 92; RESP 14; TEMP 97.8; O2SAT 96
[2017-07-01 07:30] LABS: AUTOMATED NEUTROPHIL # 4.5 TH/MM3 (1.8-7.7); BASOPHIL % 0.3 % (0.0-2.0); EOSINOPHIL # 0.1 TH/MM3 (0-0.4); EOSINOPHIL % 1.2 % (0.0-4.0); HEMATOCRIT 37.3 % (39.0-51.0); HEMOGLOBIN 12.4 GM/DL (13.0-17.0); LYMPH % 19.1 % (9.0-44.0); LYMPHOCYTE # 1.3 TH/MM3 (1.0-4.8); MEAN CELL VOLUME 88.6 FL (80.0-100.0); MEAN CORPUSCULAR HEMOGLOBIN 29.4 PG (27.0-34.0); MEAN CORPUSCULAR HGB CONC 33.2 % (32.0-36.0); MEAN PLATELET VOLUME 8.2 FL (7.0-11.0); MONO % 11.1 % (0.0-8.0); MONOCYTE # 0.7 TH/MM3 (0-0.9); NEUT % 68.3 % (16.0-70.0); PLATELET COUNT 213 TH/MM3 (150-450); RED BLOOD COUNT 4.21 MIL/MM3 (4.50-5.90); RED CELL DISTRIBUTION WIDTH 14.1 % (11.6-17.2); WHITE BLOOD COUNT 6.6 TH/MM3 (4.0-11.0)
[2017-07-01 07:59] LABS: ALBUMIN 3.7 GM/DL (3.4-5.0); AST (GOT) 24 U/L (15-37); BICARBONATE 27.3 MEQ/L (21.0-32.0); BLOOD UREA NITROGEN 11 MG/DL (7-18); CALCIUM 8.4 MG/DL (8.5-10.1); CHLORIDE 104 MEQ/L (98-107); GLOMERULAR FILTRATION RATE 109 ML/MIN (>89); GLUCOSE,RANDOM 97 MG/DL (74-106); SODIUM (NA) 140 MEQ/L (136-145)
[2017-07-01 08:02] LABS: ALKALINE PHOSPHATASE 93 U/L (45-117); ALT (GPT) 27 U/L (12-78); TOTAL PROTEIN 7.5 GM/DL (6.4-8.2)
[2017-07-01] MEDS ORDERED: HYDR-3580 PO (08:08)
[2017-07-01] MEDS ORDERED: WALKER/ADULT/FO1 MIS (08:08)
[2017-07-01] MEDS ORDERED: VANCOMYCIN HCL 1000 MG VIAL ONE (08:27)
[2017-07-01] MEDS ORDERED: ceFAZolin INJ 1,000 MG VIAL ONE (08:28)
[2017-07-01] MEDS ORDERED: GENTAMICIN SULFATE 80 MG/2 ML VIAL ONE (08:30)
[2017-07-01] MEDS ORDERED: DOCUSATE SODIUM 50 MG/SENNA 8.6 MG TAB PO SCH (09:00)
[2017-07-01] MEDS ORDERED: SODIUM CHLORIDE 0.9% FLUSH 10 ML FLUSH IV FLUSH SCH (09:00)
[2017-07-01] MEDS ORDERED: LISINOPRIL 10 MG TAB PO SCH (09:00)
--- NOTE | 2017-07-01 09:03 | HHI.PR ---
Subjective Remarks This is a pleasant 47 y/o Male with Anxiety disorder, Depression, Hypertension, Tobacco abuse, brought in to ER with right ankle pain, status post fall, Ankle X-ray with ankle dislocation with oblique fracture of distal fibula. patient with Diagnosis of Displaced right fibular fracture with syndesmosis disruption, status post ORIF right fibula fracture, ope reduction right ankle syndesmosis. July 01 2017 recommended for discharge from Orthopedic surgery standpoint and given follow up as outpatient. Seen in PACU okay to discharge will go home and needs Rolling walker for discharge, his blood pressure was uncontrolled, but will need to follow with his PCP. Objective Vital Signs Date Time Temp Pulse Resp B/P (MAP) Pulse Ox O2 Delivery O2 Flow Rate FiO2 07/01/17 07:08 97.8 92 14 191/91 (124) 96 07/01/17 04:21 98.3 82 18 171/91 (117) 96 06/30/17 22:59 06/30/17 22:30 99 3.00 06/30/17 21:02 79 16 142/94 (110) 96 Room Air 06/30/17 20:28 98 Room Air 06/30/17 19:58 98.7 76 20 217/125 (155) 98 Result Diagram: 07/01/17 0612 07/01/17 0612 Imaging Last Impressions Chest X-Ray 06/30/172000 Signed Impressions: Service Date/Time: June 20:12 - CONCLUSION: No acute disease. Yuri Stephenson MD Tibia/Fibula X-Ray 06/30/17 0000 Signed Impressions: Service Date/Time: June 20:52 - CONCLUSION: Significant reduction in the previously seen ankle dislocation with the ankle mortise still widened. Yuri Stephenson MD Foot X-Ray 06/30/17 0000 Signed Impressions: Service Date/Time: June 20:14 - CONCLUSION: No abnormality seen within the foot. Yuri Stephenson MD Ankle X-Ray 06/30/17 0000 Signed Impressions: Service Date/Time: June 20:13 - CONCLUSION: Ankle dislocation with oblique fracture the distal fibula. Yuri Stephenson MD Procedures With Diagnosis of Displaced right fibular fracture with syndesmosis disruption, status post ORIF right fibula fracture, ope reduction right ankle syndesmosis. July 01 2017 Other Results Laboratory Tests Test 06/30/17 20:05 06/30/17 21:05 07/01/17 06:12 Blood Urea Nitrogen 12 MG/DL 11 MG/DL Creatinine 0.96 MG/DL 0.90 MG/DL Random Glucose 95 MG/DL 97 MG/DL Calcium Level 8.6 MG/DL 8.4 MG/DL Magnesium Level 2.1 MG/DL Sodium Level 136 MEQ/L 140 MEQ/L Potassium Level 5.0 MEQ/L 3.9 MEQ/L Chloride Level 105 MEQ/L 104 MEQ/L Carbon Dioxide Level 22.8 MEQ/L 27.3 MEQ/L Prothrombin Time 11.4 SEC Prothromb Time International Ratio 1.1 RATIO Activated Partial Thromboplast Time 26.6 SEC White Blood Count 6.6 TH/MM3 Red Blood Count 4.21 MIL/MM3 Hemoglobin 12.4 GM/DL Hematocrit 37.3 % Mean Corpuscular Volume 88.6 FL Mean Corpuscular Hemoglobin 29.4 PG Mean Corpuscular Hemoglobin Concent 33.2 % Red Cell Distribution Width 14.1 % Platelet Count 213 TH/MM3 Mean Platelet Volume 8.2 FL Neutrophils (%) (Auto) 68.3 % Lymphocytes (%) (Auto) 19.1 % Monocytes (%) (Auto) 11.1 % Eosinophils (%) (Auto) 1.2 % Basophils (%) (Auto) 0.3 % Neutrophils # (Auto) 4.5 TH/MM3 Lymphocytes # (Auto) 1.3 TH/MM3 Monocytes # (Auto) 0.7 TH/MM3 Eosinophils # (Auto) 0.1 TH/MM3 Basophils # (Auto) 0.0 TH/MM3 CBC Comment DIFF FINAL Differential Comment Total Protein 7.5 GM/DL Albumin 3.7 GM/DL Alkaline Phosphatase 93 U/L Aspartate Amino Transf (AST/SGOT) 24 U/L Alanine Aminotransferase (ALT/SGPT) 27 U/L Total Bilirubin 1.0 MG/DL Anion Gap 9 MEQ/L Estimat Glomerular Filtration Rate 109 ML/MIN Objective Remarks GENERAL: No acute distress. HEENT: PERRLA, EOMI. No scleral icterus or conjunctival pallor. No lid lag or facial droop. CARDIOVASCULAR: Regular rate and rhythm. No obvious murmurs to auscultation. No chest tenderness to palpation. RESPIRATORY: No obvious rhonchi or wheezing. Clear to auscultation. Breath sounds equal bilaterally. GASTROINTESTINAL: Abdomen soft, non-tender, nondistended. BS normal. MUSCULOSKELETAL: Orthotics on Right leg. NEUROLOGICAL: Awake, alert and oriented x4. No focal neurologic deficits. Moving both upper and lower extremities spontaneously. Medications and IVs Current Medications Medications (Trade) Dose Ordered Sig/Dagoberto Route Start Time Stop Time Status Last Admin Sodium Chloride 1,000 ml @ 100 mls/hr Q10H IV 06/30/17 21:18 06/30/17 21:40 (NS Flush) 2 ml UNSCH PRN IV FLUSH 06/30/17 21:30 (NS Flush) 2 ml BID IV FLUSH 07/01/17 09:00 (Zofran Inj) 4 mg Q6H PRN IVP 06/30/17 21:30 (Tylenol) 650 mg Q6H PRN PO 06/30/17 21:30 ([place] 5-325 Mg) 1 tab Q4H PRN PO 06/30/17 21:30 06/30/17 22:24 (Dilaudid Pf Inj) 1 mg Q3H PRN IV PUSH 06/30/17 21:30 07/01/17 06:16 (Ananya-Colace) 1 tab BID PO 07/01/17 09:00 (Milk Of Magnesia Liq) 30 ml Q12H PRN PO 06/30/17 21:30 (Senokot) 17.2 mg Q12H PRN PO 06/30/17 21:30 (Dulcolax Supp) 10 mg DAILY PRN RECTAL 06/30/17 21:30 (Lactulose Liq) 30 ml DAILY PRN PO 06/30/17 21:30 (Lioresal) 20 mg TID PO 07/01/17 09:00 (Prinivil) 10 mg DAILY PO 07/01/17 09:00 (Synthroid) 75 mcg DAILY@0600 PO 07/01/17 06:00 07/01/17 06:13 (Synthroid) 100 mcg DAILY@0600 PO 07/01/17 06:00 07/01/17 06:15 (Ambien) 5 mg HS PRN PO 06/30/17 22:15 07/01/17 01:38 A/P Assessment and Plan (1) Ankle fracture ICD Code: S82.899A - Other fracture of unspecified lower leg, initial encounter for closed fracture (2) HTN (hypertension) ICD Code: I10 - Essential (primary) hypertension (3) Tobacco abuse ICD Code: Z72.0 - Tobacco use 1. Displaced right fibular fracture with syndesmosis disruption, status post ORIF right fibula fracture, ope reduction right ankle syndesmosis. July 01 2017 recommended for discharge from Orthopedic surgery standpoint and given follow up as outpatient. given scripts for pain medicine by Orthopedic surgery. 2. HTN: Better control at this time but will need to follow with his PCP and continue Home medicines. 3. Tobacco Abuse: strongly recommended to stop smoking, DVT Prophylaxis: Anticoagulation post op Discharge Planning Discharge Home now. Negrito Ely MD Jul 01, 2017 09:03
[2017-07-01] MEDS ORDERED: BUPIVACAINE/EPINEPHRINE 0.5% PF 10 ML VIAL ONE (09:13)
[2017-07-01] MEDS ORDERED: ENALAPRILAT 1.25 MG/ML VIAL IV PUSH PRN (09:15)
--- NOTE | 2017-07-01 09:26 | PD.OP ---
cc: Moisés Jacobo MD Operative Report Date of Surgery: Jul 01, 2017 Preoperative Diagnosis: Displaced right fibular fracture with syndesmosis disruption Postoperative Diagnosis: Procedure: Open reduction internal fixation right fibula fracture, open reduction and fixation right ankle syndesmosis Anesthesia: Gen. Surgeon: Moisés Jacobo Snow Shoveler(s): ELAINE Hardy PA-C The surgical procedure was assisted by my physician television production assistant. My P.A. presence was necessary throughout this case for the manipulation and positioning of the surgical extremity. My P.A. was assisting me throughout the duration of this procedure. The skill set of a physician television production assistant was medically necessary to complete this procedure. During the surgical case the rn surgical was working at the back table and the physician television production assistant was directly assisting me. Operation and Findings: Implants used: ITS Plan of activity: nonweightbearing right leg Patient was seen and evaluated preoperatively and found to have a displaced right ankle fracture. Informed consent was obtained after a detailed discussion of risk and benefits of surgery. The operative site was marked. Patient was brought to the OR, placed on the OR table, and given IV sedation and general endotracheal anesthesia. IV antibiotics were given preoperatively. A timeout procedure was performed. The left leg was prepped with alcohol followed by Hibiclens and draped in the usual sterile fashion. Attention was turned towards the distal fibula. A 5-inch incision was made over the distal fibula. The subcutaneous tissue was dissected with Bovie. The fracture site was visualized. The fracture site was cleaned with curets. The fracture was now reduced. The fracture keyed into anatomic alignment. K-wires were used to hold provisional fixation. A fibular plate was selected. The plate was provisionally held to bone with K-wires. 3.5 cortical screws were used to compress the plate to bone. Multiple cortical screws were placed above and below the fracture. Next, attention was turned to the syndesmosis. The syndesmosis was stressed. There was clear widening of the syndesmosis with external rotation of the ankle. The syndesmosis was now held in a reduced position with the ankle in neutral position. Two 3.5 cortical screws were now placed through the fibula plate into the tibia. Fluoroscopy confirmed appropriate screw placement with well-aligned syndesmosis. Incisions were thoroughly irrigated. The subcutaneous tissue was closed with 3-0 Vicryl and the skin was closed with 3-0 nylon. Sterile dressings were applied. The patient was transferred to Recovery in stable condition. Moisés Jacobo MD Jul 01, 2017 09:26
[2017-07-01] MEDS ORDERED: Post-op Orders (for Pharmacy) XX ONE (09:30)
[2017-07-01] MEDS ORDERED: *MEPERIDINE 25 MG INJ VIAL PERIprocedural Use ONLY ONE (09:53)
--- NOTE | 2017-07-01 09:54 | MB ---
cc: Moisés Allred MD DATE: 07/01/2017 REASON FOR CONSULTATION: Right ankle fracture dislocation CONSULTING PHYSICIAN: Dr. Kraft HISTORY OF PRESENT ILLNESS: Farshad is a 47-year-old male who was at the baseball field for his son's baseball practice. His son had a good hit and he was cheering his son. His foot got caught in a wire along the fence. He twisted his foot. He had immediate pain and deformity. He presented to the Emergency Room where x-rays revealed a fracture-dislocation of his right ankle. He is currently awake and alert in the emergency room. His only complaint is his right ankle. Pain is worse with movement and is improved with rest. He denies dizziness, syncope or loss of consciousness. PAST MEDICAL HISTORY: Anxiety, depression, hypertension, coronary artery disease. PAST SURGICAL HISTORY: Cardiac stent placement and thyroidectomy. ALLERGIES: BANANAS AND MORPHINE. MEDICATIONS: Please see EMR for a complete list of inpatient medications. FAMILY HISTORY: Noncontributory. He denies any familial medical problems. SOCIAL HISTORY: The patient does drink alcohol. He does smoke cigarettes as well as use marijuana. REVIEW OF SYSTEMS: The patient denies headache, visual changes, neck pain, chest pain, shortness of breath, abdominal pain, nausea, vomiting, recent weight loss, fevers or chills, numbness or tingling of extremities. He complains of right ankle pain. The pain is worse with movement. LABORATORY DATA: The patient's white blood cell count is 6.6, hematocrit of 37.3, and platelet count of 213. INR is 1.1. BUN is 11, creatinine 0.90. PHYSICAL EXAMINATION: GENERAL: The patient is a pleasant 47-year-old male. He is awake and alert. He is alert and oriented x 3. He is in no acute distress. He appears well-developed, well-nourished. VITAL SIGNS: Temperature 97.8, pulse 92, respirations 14, blood pressure 191/91, O2 saturation 96% on 3 liters nasal cannula. HEENT: Head: The patient is normocephalic. Pupils are equal. NECK: Soft, nontender. The trachea is in the midline. ABDOMEN: Soft, nontender, nondistended. EXTREMITIES: On examination of bilateral upper extremities reveals no pain with shoulder, elbow or wrist motion. He has intact sensation in all fingers. He has good refill in all fingers. Skin is intact. Radial pulses are palpable. Examination of the left leg reveals no pain with hip, knee or ankle motion. Skin is intact. Dorsalis pedis pulses palpable. Sensation is intact. Examination of the right leg reveals no pain with hip or knee motion. Skin is intact. He has mild swelling of the ankle. Dorsalis pedis pulses palpable. Calf compartments are soft. IMAGING: X-rays of right ankle reviewed. X-rays reveal a displaced distal fibula fracture. There is also widening of the syndesmosis. IMPRESSION: 1. History of coronary artery disease. 2. History of thyroidectomy. 3. Right ankle fracture dislocation. PLAN: Treatment options were discussed with the patient. At this point, I would recommend open reduction internal fixation of right ankle and syndesmosis. Risks of surgery include bleeding, infection, injuries to arteries, nerves and blood vessels, nonunion, malunion, ankle stiffness, loss of motion, as well as medical complications including blood clot, stroke, heart attack and . All questions were answered. I will plan on surgery today. A mid-level provider in my office, nurse practitioner or PA, may see this patient on a follow-up basis and continue to implement the objective of this plan including: Starting or adjusting medications, injections of muscle, tendon, bursa or joints, cast application, orthotic or brace application, physical therapy, further radiographic studies including x-ray, MRI, CT, ultrasounds or bone scan, vascular studies, neurologic studies, or other specialist consultations, and proceeding with surgical management as appropriate. MD BONI Anguiano/GEM , 09:30 AM , 09:53 AM
[2017-07-01] MEDS ORDERED: DO NOT ADM ANY ANTICOAGULANT DRUGS PRN (10:00)
[2017-07-01] MEDS ORDERED: HYDROmorphone HCL PF 2 MG/ML VIAL ONE (10:04)
[2017-07-01] MEDS ORDERED: MIDAZOLAM HCL 2 MG/2 ML VIAL ONE (10:08)
[2017-07-01] MEDS: BACLOFEN 20 MG TAB PO SCH ×2 (10:40→12:27)
[2017-07-01] MEDS: ACETAMINOPHEN/HYDROcodone 325 MG/7.5 MG TAB PO PRN ×2 (10:45→15:52)
--- NOTE | 2017-07-01 10:59 | RADRPT ---
EXAM DATE/TIME: 07/01/2017 09:09 [facility] COMPARISON: ANKLE RIGHT LIMITED (AP[facility]), June 30, 2017, 20:13. INDICATIONS : Right ankle open reduction internal fixation. MEDICAL HISTORY : Cardiovascular disease. Myocardial infarction. Hypertension. SURGICAL HISTORY : Coronary artery stent. Thyroidectomy. ENCOUNTER: Subsequent ACUITY: 1 day PAIN SCORE: Non-responsive. LOCATION: Right ankle FINDINGS: 4 views of the right ankle were obtained using a matrix camera and demonstrate that the patient is st atus post open rigid internal fixation screw plate fixation device along the distal fibula transfixin g a distal fibular fracture. There are 2 longer screws which extend into the distal tibia. The ankle dislocation has been reduced and the fracture fragments are now in anatomic alignment. CONCLUSION: Status post open rigid internal fixation. Tru Oliver MD on July 01, 2017 at 10:56 Board Certified Radiologist. This report was verified electronically.
[2017-07-01 11:23] VITALS: BP 162/85; PULSE 68; RESP 14; TEMP 97.8; O2SAT 98
[2017-07-01 11:57] VITALS: BP 211/117; PULSE 82; RESP 14; TEMP 97.8; O2SAT 96
[2017-07-01] MEDS ORDERED: LIDOCAINE HCL 1% PF 5 ML SYRINGE OTHER ONE (12:00)
[2017-07-01] MEDS ORDERED: DEXAMETHASONE SOD PHOS 4 MG/ML VIAL IV ONE (12:00)
[2017-07-01] MEDS ORDERED: PROPOFOL 200 MG/20 ML AMP IV ONE (12:00)
[2017-07-01] MEDS ORDERED: ONDANSETRON HCL 4 MG/2 ML VIAL IV ONE (12:00)
[2017-07-01] MEDS ORDERED: SODIUM CHLOR 0.9% 250 ML INJ 250 ML IV ONE (12:00)
[2017-07-01] MEDS ORDERED: LABETALOL HCL 100 MG/20 ML VIAL IV ONE (12:00)
[2017-07-01 12:34] VITALS: BP 172/92
[2017-07-01 15:45] VITALS: BP 166/81
[2017-07-01] MEDS ORDERED: ceFAZolin 2 GM PREMIX 50 ML IV SCH (17:00)
--- NOTE | 2017-07-01 17:14 | HHI.DS ---
Discharge Summary Admission Date Jun 30, 2017 at 21:26 Discharge Date: Jul 01, 2017 Admitting Diagnosis (1) Ankle fracture ICD Code: S82.899A - Other fracture of unspecified lower leg, initial encounter for closed fracture Diagnosis: Principal (2) HTN (hypertension) ICD Code: I10 - Essential (primary) hypertension Diagnosis: Principal (3) Tobacco abuse ICD Code: Z72.0 - Tobacco use Diagnosis: Principal Procedures With Diagnosis of Displaced right fibular fracture with syndesmosis disruption, status post ORIF right fibula fracture, ope reduction right ankle syndesmosis. July 01 2017 Brief History - From Admission This is a 47-year-old male with a PMH of Anxiety, Depression, HTN and Tobacco Abuse who is brought to the ER secondary to complaints of right ankle pain. Patient states he was at his son's baseball game, son hit a home run at which time patient got excited and jumped up, twisted his right ankle when he landed. Pain is severe, constant, 10/10, worse with movement, nonradiating. On arrival, BP 217/125, HR 76, O2 sat 98% on RA, Afebrile. CBC unremarkable. Chemistry unremarkable. INR 1.1. CXR no acute findings. Ankle X-ray with ankle dislocation with oblique fracture of distal fibula. CBC/BMP: 07/01/17 0612 07/01/17 0612 Significant Findings Laboratory Tests Test 06/30/17 20:05 06/30/17 21:05 07/01/17 06:12 Monocytes (%) (Auto) 10.0 % (0.0-8.0) 11.1 % (0.0-8.0) Red Blood Count 4.21 MIL/MM3 (4.50-5.90) Hemoglobin 12.4 GM/DL (13.0-17.0) Hematocrit 37.3 % (39.0-51.0) Calcium Level 8.4 MG/DL (8.5-10.1) Imaging Last Impressions Ankle X-Ray 07/01/17 0000 Signed Impressions: Service Date/Time: Saturday, July 01, 2017 09:09 - CONCLUSION: Status post open rigid internal fixation. Tru Oliver MD Chest X-Ray 06/30/172000 Signed Impressions: Service Date/Time: June 20:12 - CONCLUSION: No acute disease. Yuri Stephenson MD Tibia/Fibula X-Ray 06/30/17 0000 Signed Impressions: Service Date/Time: June 20:52 - CONCLUSION: Significant reduction in the previously seen ankle dislocation with the ankle mortise still widened. Yuri Stephenson MD Foot X-Ray 06/30/17 0000 Signed Impressions: Service Date/Time: June 20:14 - CONCLUSION: No abnormality seen within the foot. Yuri Stephenson MD PE at Discharge GENERAL: No acute distress. HEENT: PERRLA, EOMI. No scleral icterus or conjunctival pallor. No lid lag or facial droop. CARDIOVASCULAR: Regular rate and rhythm. No obvious murmurs to auscultation. No chest tenderness to palpation. RESPIRATORY: No obvious rhonchi or wheezing. Clear to auscultation. Breath sounds equal bilaterally. GASTROINTESTINAL: Abdomen soft, non-tender, nondistended. BS normal. MUSCULOSKELETAL: Orthotics on Right leg. NEUROLOGICAL: Awake, alert and oriented x4. No focal neurologic deficits. Moving both upper and lower extremities spontaneously. Hospital Course This is a pleasant 47 y/o Male with Anxiety disorder, Depression, Hypertension, Tobacco abuse, brought in to ER with right ankle pain, status post fall, Ankle X-ray with ankle dislocation with oblique fracture of distal fibula. patient with Diagnosis of Displaced right fibular fracture with syndesmosis disruption, status post ORIF right fibula fracture, ope reduction right ankle syndesmosis. July 01 2017 recommended for discharge from Orthopedic surgery standpoint and given follow up as outpatient. Seen in PACU okay to discharge will go home and needs Rolling walker for discharge, his blood pressure was uncontrolled, but will need to follow with his PCP. Assessment and Plan (1) Ankle fracture ICD Code: S82.899A - Other fracture of unspecified lower leg, initial encounter for closed fracture (2) HTN (hypertension) ICD Code: I10 - Essential (primary) hypertension (3) Tobacco abuse ICD Code: Z72.0 - Tobacco use 1. Displaced right fibular fracture with syndesmosis disruption, status post ORIF right fibula fracture, ope reduction right ankle syndesmosis. July 01 2017 recommended for discharge from Orthopedic surgery standpoint and given follow up as outpatient. given scripts for pain medicine by Orthopedic surgery. 2. Hypertensive Urgency: Better control at this time but will need to follow with his PCP and continue Home medicines. 3. Tobacco Abuse: strongly recommended to stop smoking, DVT Prophylaxis: Anticoagulation post op Discharge Planning Discharge Home now. Pt Condition on Discharge: Good Discharge Disposition: Discharge Home Discharge Time: <= 30 minutes Discharge Instructions DIET: Follow Instructions for: As Tolerated, No Restrictions Activities you can perform: Non Weight Bearing Other Activity Instructions: use Walker as recommended by PT and Orthopedic surgery Negrito Ely MD Jul 01, 2017 17:14
== END 2017-07-01 17:02 | disposition home or self-care (01) | DRG 494 ==
LOC: NEPC 19:47 → NEDA 21:26 → NEPFCDU 23:11 → N06B 07-01 10:00 → NEPFCDU 07-01 11:21
PROVIDERS: ADMIT Internal Medicine; ATTEND Internal Medicine
PROC: 0QSJ04Z Reposition Right Fibula with Internal Fixation Device, Open Approach (ICD-10-PCS; principal; 2017-06-30)
PROC: 0SSF0ZZ Reposition Right Ankle Joint, Open Approach (ICD-10-PCS; 2017-06-30)
DX: S82.401A Unspecified fracture of shaft of right fibula, initial encounter for closed fracture (principal); S93.04XA Dislocation of right ankle joint, initial encounter; F32.9 Major depressive disorder, single episode, unspecified; I16.0 Hypertensive urgency; S93.431A Sprain of tibiofibular ligament of right ankle, initial encounter; I25.10 Atherosclerotic heart disease of native coronary artery without angina pectoris; F41.9 Anxiety disorder, unspecified; M19.90 Unspecified osteoarthritis, unspecified site; M54.9 Dorsalgia, unspecified; G89.29 Other chronic pain; E07.9 Disorder of thyroid, unspecified; E78.00 Pure hypercholesterolemia, unspecified; E89.0 Postprocedural hypothyroidism; F12.90 Cannabis use, unspecified, uncomplicated; F17.210 Nicotine dependence, cigarettes, uncomplicated; Z95.5 Presence of coronary angioplasty implant and graft; I25.2 Old myocardial infarction; Z79.82 Long term (current) use of aspirin; X50.0XXA Overexertion from strenuous movement or load, initial encounter; Y92.320 Baseball field as the place of occurrence of the external cause
CPT/HCPCS: 27840; 71045; 73590; 73600; 73620; 76000; 80048; 80053; 83735; 85025; 85610; 85730; 86850; 86900; 86901; 96374; 96375; 96376; C1713; E0113; J0690; J1100; J1170; J1580; J2175; J2250; J2405; J3010; J3370; J7030; J7050

== ENCOUNTER 2017-07-02 08:17 | Emergency (ER) | payer OTHER ==
[~2017-07-02] VITALS: Ht 175.3 cm; Wt 88.0 kg
[~2017-07-02 08:17] MED LIST changes: +HYDR-3580 PO; +WALKER/ADULT/FO1 MIS
[2017-07-02 08:22] VITALS: BP 155/87; PULSE 81; RESP 16; TEMP 98.5; O2SAT 97
--- NOTE | 2017-07-02 08:49 | PD ---
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 States he dislocated his ankle with a unspecified fracture on that was repaired surgically by Dr. Allred on Tuesday. States last night he took his short leg splint off and started to unbandaged it. No specific reason. States he noted blood and was unable to get the short leg splint back on. Patient is not on blood thinners. PFSH Past Medical History Hx Anticoagulant Therapy: Yes (BABY ASA DAILY) Arthritis: Yes Asthma: No Autoimmune Disease: No Blood Disorders: No Anxiety: Yes Depression: Yes Heart Rhythm Problems: No Cancer: No Cardiac Catheterization: Yes (X2) Cardiovascular Problems: Yes (htn on meds) High Cholesterol: Yes Chemotherapy: No Chest Pain: Yes Congestive Heart Failure: No COPD: No Cerebrovascular Accident: No Coronary Artery Disease: Yes Diabetes: No Diminished Hearing: No Endocrine: Yes GERD: No Genitourinary: No Hepatitis: No Hiatal Hernia: No Hypertension: Yes Immune Disorder: No Kidney Stones: No Musculoskeletal: Yes Neurologic: No Psychiatric: Yes Reproductive: No Respiratory: No Migraines: Yes Myocardial Infarction: Yes Radiation Therapy: No Renal Failure: No Seizures: No Sickle Cell Disease: No Sleep Apnea: No Thyroid Disease: Yes Ulcer: No Tetanus Vaccination: < 5 Years Influenza Vaccination: Yes PNEUMOCCOCAL Vaccine (Year): 2 Past Surgical History Abdominal Surgery: No AICD: No Arteriovenous Shunt: No Cardiac Surgery: Yes (stents) Coronary Artery Bypass Graft: No Coronary Stent: Yes Ear Surgery: No Endocrine Surgery: Yes (thyroidectomy) Eye Surgery: No Genitourinary Surgery: No Gynecologic Surgery: No Insulin Pump: No Joint Replacement: No Oral Surgery: No Pacemaker: No Thoracic Surgery: No Other Surgery: Yes Social History Alcohol Use: Yes (occ) Tobacco Use: Yes (1/2 ppd) Substance Use: Yes (occasional marijuana) Allergies-Medications (Allergen,Severity, Reaction): Coded Allergies: banana (Unverified Allergy, Severe, GI UPSET, 07/02/17) morphine (Unverified Allergy, Severe, Rash, 07/02/17) Reported Meds & Prescriptions Reported Meds & Active Scripts Active Hydrocodone-Acetaminophen 7.5 Mg-325 Mg Tab 1 Tab PO Q4H PRN Walker/Adult/Folding (Device) 1 Mis Mis Ea .XX DIRECTED Lisinopril 10 Mg Tab 10 Mg PO DAILY Reported Oxycodone-Acetaminophen 10-325 mg Tab 1 Tab PO Q6H PRN Aspirin 81 Mg Chew 81 Mg CHEW DAILY Synthroid (Levothyroxine Sodium) 175 Mcg Tab 175 Mcg PO DAILY Review of Systems General / Constitutional: No: Fever Eyes: No: Visual changes HENT: No: Headaches Cardiovascular: No: Chest Pain or Discomfort Respiratory: No: Shortness of Breath Gastrointestinal: No: Abdominal Pain Genitourinary: No: Dysuria Musculoskeletal: No: Pain Skin: No Rash Neurologic: No: Weakness Psychiatric: No: Depression Endocrine: No: Polydipsia Hematologic/Lymphatic: No: Easy Bruising Physical Exam Narrative GENERAL: Well-nourished, well-developed patient. SKIN: Focused skin assessment warm/dry. HEAD: Normocephalic. EYES: No scleral icterus. No injection or drainage. NECK: Supple, trachea midline. No JVD or lymphadenopathy. CARDIOVASCULAR: Regular rate and rhythm without murmurs, gallops, or rubs. RESPIRATORY: Breath sounds equal bilaterally. No accessory muscle use. GASTROINTESTINAL: Abdomen soft, non-tender, nondistended. MUSCULOSKELETAL: No cyanosis, or edema. BACK: Nontender without obvious deformity. No CVA tenderness. Examination right lower extremity lateral aspect reveals a clean dry intact surgical site without drainage or cellulitic change bandages were mildly saturated with blood Data Data Last Documented VS Vital Signs Date Time Temp Pulse Resp B/P (MAP) Pulse Ox O2 Delivery O2 Flow Rate FiO2 07/02/17 08:35 Room Air 07/02/17 08:22 98.5 81 16 155/87 (109) 97 MDM Medical Decision Making Medical Screen Exam Complete: Yes Emergency Medical Condition: Yes Differential Diagnosis trucker failure, malingering Narrative Course Assessment plan discussed with patient and at bedside. Left lower extremity redressed with short leg splint. Patient tolerated well. Diagnosis Primary Impression: Visit for wound check Patient Instructions: General Instructions Additional Instructions: Encouraged to leave splint in place until he follows up with Dr. Allred. Return to emerge from with any onset of new symptoms. Med/Other Pt SpecificInfo: No Meds Exist/No RX given Disposition: 01 DISCHARGE HOME Condition: Good Brent Brannon MD Jul 02, 2017 08:49
== END 2017-07-02 09:00 | disposition home or self-care (01) ==
LOC: PHED 08:17
DX: S82.891D Other fracture of right lower leg, subsequent encounter for closed fracture with routine healing (principal); M19.90 Unspecified osteoarthritis, unspecified site; F41.9 Anxiety disorder, unspecified; I10 Essential (primary) hypertension; E78.00 Pure hypercholesterolemia, unspecified; I25.10 Atherosclerotic heart disease of native coronary artery without angina pectoris; I25.2 Old myocardial infarction; E07.9 Disorder of thyroid, unspecified; X58.XXXA Exposure to other specified factors, initial encounter
CPT/HCPCS: 29515; 99281; E0113

== ENCOUNTER 2018-05-23 00:49 | Inpatient (IN) ==
--- NOTE | 2018-05-23 01:31 | XR ---
EXAM DATE: 05/23/2018 1:23 AM EST AGE/SEX: 48 years / Male INDICATIONS: Chest pain. CLINICAL DATA: This is the patient's subsequent encounter. Patient reports that signs and symptoms h ave been present for 3 days and indicates a pain score of 6/10. MEDICAL/SURGICAL HISTORY: Cardiovascular disease. Thyroidectomy. Coronary artery stent. COMPARISON: [facility] [place], CHEST 1V SINGLE AP, 04/23/2018. . FINDINGS: A single AP view of the chest demonstrates the lungs to be symmetrically aerated without evidence of mass, infiltrate or effusion. The cardiomediastinal contours are unremarkable. Osseous structures a re intact. CONCLUSION: No acute cardiopulmonary process. No significant change from prior. Electronically signed by: Ayden Marinelli MD Board Certified Radiologist 05/23/2018 1:30 AM EST
[2018-05-23 02:05] LABS: Baso # (Auto) 0.1 th/mm3 (0.0-0.2); Eos # (Auto) 0.2 th/mm3 (0.0-0.4); Eos % (Auto) 4.4 % (0.0-4.0); Hematocrit 39.4 % (39.0-51.0); Hemoglobin 13.2 gm/dL (13.0-17.0); Lymph # (Auto) 1.4 th/mm3 (1.0-4.8); Lymph % (Auto) 27.2 % (9.0-44.0); Mean Corpuscular HGB Conc 33.5 % (32.0-36.0); Mean Corpuscular Hemoglobin 30.7 pg (27.0-34.0); Mean Corpuscular Volume 91.5 fL (80.0-100.0); Mean Platelet Volume 8.2 fL (7.0-11.0); Mono # (Auto) 0.5 th/mm3 (0.0-0.9); Mono % (Auto) 9.6 % (0.0-8.0); Neut % (Auto) 57.8 % (16.0-70.0); Platelet Count 214 th/mm3 (150-450); Red Blood Count 4.31 mil/mm3 (4.50-5.90); Red Cell Distribution Width 13.7 % (11.6-17.2); White Blood Count 5.2 th/mm3 (4.0-11.0)
[2018-05-23 02:26] LABS: Albumin 3.5 g/dL (3.4-5.0); Anion Gap 6 meq/L (5-15); Aspartate Aminotransferase 48 U/L (15-37); Blood Urea Nitrogen 16 mg/dL (7-18); Calcium 8.2 mg/dL (8.5-10.1); Carbon Dioxide 27.4 meq/L (21.0-32.0); Chloride 107 meq/L (98-107); Glomerular Filtration Rate 83 mL/min (>89); Glucose,Random 117 mg/dL (74-106); Potassium 3.7 meq/L (3.5-5.1); Sodium 140 meq/L (136-145)
[2018-05-23 02:27] LABS: Alanine Aminotransferase 41 U/L (12-78)
[2018-05-23 02:30] LABS: Alkaline Phosphatase 101 U/L (45-117); Total Protein 7.4 g/dL (6.4-8.2)
[2018-05-23 02:48] LABS: Troponin I 3.52 ng/mL (0.02-0.05)
[2018-05-23] MEDS ORDERED: Heparin 10,000 UNITS/10 ML Vial (for IV use) IV.PUSH STA (02:54)
[2018-05-23] MEDS ORDERED: Heparin Drip 25,000 UNIT/250 ML BAG IV.CONT PRN (02:54)
--- NOTE | 2018-05-23 03:02 | ED ---
HPI General Chief Complaint: Chest Pain Stated Complaint: Chest Pain Time Seen by Provider: 05/23/18 01:27 Source: patient Mode of arrival: ambulatory Limitations: no limitations History of Present Illness HPI narrative: 48-year-old male arrives with chest pain for 4 days. It is retrosternal. It is continuous about 5/10. There is an exertional component. The patient reports eating a large spicy meatballs tonight which made the pain worse. He has a history of coronary artery disease with 2 stents. He takes aspirin every day. No cough or fever. The patient quit smoking just over a month ago. He reports compliance with levothyroxine aspirin and lisinopril. Related Data Home Medications Medication Instructions Recorded Confirmed aspirin [Aspirin Low Dose] 81 mg PO DAILY 02/04/18 05/23/18 levothyroxine 175 mcg PO DAILY 02/04/18 05/23/18 lisinopril 10 mg PO DAILY 02/04/18 05/23/18 omega 1-bcn-vkr-fish oil [Fish Oil] 1 cap PO DAILY 02/04/18 05/23/18 oxycodone-acetaminophen 1 tab PO Q6H PRN 02/04/18 05/23/18 baclofen 10 mg PO HS 05/23/18 05/23/18 cholecalciferol (vitamin D3) 5,000 unit PO DAILY 05/23/18 05/23/18 [Vitamin D3] Allergies Allergy/AdvReac Type Severity Reaction Status Date / Time banana Allergy Severe GI UPSET Verified 05/23/18 00:54 morphine Allergy Severe Rash Verified 05/23/18 00:54 Review of Systems ROS: all other systems reviewed are negative PMFSH Social History Social History Substance History: Active Abuse Second Hand Smoke Exposure: No Smoking Status: Former smoker Tobacco Type: Cigarettes How Often Do You Have a Drink Containing Alcohol: Monthly or less Recent Travel in [facility] within the Last 8 Weeks: No Recent Out of Country Travel within the Last 8 Weeks: No Exam Narrative Exam Narrative: GENERAL: 48-year-old male well-nourished well-developed mild to moderate distress due to pain SKIN: Focused skin assessment warm/dry. HEAD: Atraumatic. Normocephalic. EYES: Pupils equal and round. No scleral icterus. No injection or drainage. ENT: No nasal bleeding or discharge. Mucous membranes pink and moist. NECK: Trachea midline. No JVD. CARDIOVASCULAR: Regular rate and rhythm. No murmur appreciated. RESPIRATORY: No accessory muscle use. Clear to auscultation. Breath sounds equal bilaterally. GASTROINTESTINAL: Abdomen soft, non-tender, nondistended. Hepatic and splenic margins not palpable. MUSCULOSKELETAL: No obvious deformities. No clubbing. No cyanosis. No edema. NEUROLOGICAL: Awake and alert. No obvious cranial nerve deficits. Motor grossly within normal limits. Normal speech. PSYCHIATRIC: Appropriate mood and affect; insight and judgment normal. Course Initial Documented Vital Signs Temperature 97.9 F 05/23/18 00:54 Pulse Rate 80 05/23/18 00:54 Respiratory Rate 16 05/23/18 00:54 Blood Pressure 146/85 H 05/23/18 00:54 Pulse Oximetry 98 05/23/18 00:54 Last Documented Vital Signs Temperature 97.9 F 05/23/18 00:54 Pulse Rate 75 05/23/18 00:57 Respiratory Rate 18 05/23/18 00:57 Blood Pressure 139/79 05/23/18 00:57 Pulse Oximetry 99 05/23/18 01:51 Critical Care Time Critical Care Time: Yes Total Critical Care Time: 40 Attestation: Aggregate critical care time was 40 minutes. Time to perform other separately billable procedures was not included in the critical care time. My time did not include minutes spent treating any other patients simultaneously or on activities that did not directly contribute to the patient's treatment. The services I provided to this patient were to treat and/or prevent clinically significant deterioration that could result in: Cardiopulmonary arrest, ventricular aneurysm I provided critical care services requiring my management, as noted below: Chart data review, documentation time, medication orders and management, vital sign assessments/reviewing monitor data, ordering and reviewing lab tests, ordering and interpreting/reviewing x-rays and diagnostic studies, care of the patient and discussion of the patient with the admitting physicians. Medical Decision Making MDM Narrative Medical decision making narrative: EKG shows a sinus rhythm with a rate of 73, ST changes in the 2 and V3 are stable compared to April 23 of this year, about 1 month ago. New T wave inversions are present in II, III and aVF. Troponin came back at 3.5 with essentially normal renal indices; patient immediately assessed and found to be resting however he was awake and reports 8/ 10 pain. He reports morphine allergy. He has received nitroglycerin paste. Heparin drip started. He reports urticaria related to morphine. We will give a small dose of fentanyl here. Call the washer meat at 3 AM. The renal indices are normal. There is concern for NSTEMI. Case discussed Dr. Post for cardiology: Heparin drip, nitro drip, n.p.o. with cardiology consult Case discussed with Dr. Montesinos for hospitalist service. Medical Screen Exam Complete: Yes Emergency Medical Condition: Yes Lab Data Result diagrams: 05/23/18 01:58 05/23/18 01:58 Lab Results 05/23/18 05/23/18 05/23/18 Range/Units 01:58 01:58 04:09 WBC 5.2 (4.0-11.0) th/mm3 RBC 4.31 L (4.50-5.90) mil/mm3 Hgb 13.2 (13.0-17.0) gm/dL Hct 39.4 (39.0-51.0) % MCV 91.5 (80.0-100.0) fL MCH 30.7 (27.0-34.0) pg MCHC 33.5 (32.0-36.0) % RDW 13.7 (11.6-17.2) % Plt Count 214 (150-450) th/mm3 MPV 8.2 (7.0-11.0) fL Neut % (Auto) 57.8 (16.0-70.0) % Lymph % (Auto) 27.2 (9.0-44.0) % [place] % (Auto) 9.6 H (0.0-8.0) % Eos % (Auto) 4.4 H (0.0-4.0) % Baso % (Auto) 1.0 (0.0-2.0) % Neut # (Auto) 3.0 (1.8-7.7) th/mm3 Lymph # (Auto) 1.4 (1.0-4.8) th/mm3 [place] # (Auto) 0.5 (0.0-0.9) th/mm3 Eos # (Auto) 0.2 (0.0-0.4) th/mm3 Baso # (Auto) 0.1 (0.0-0.2) th/mm3 WBC Differential . Differential Comment Auto diff final PT 11.9 H (9.8-11.6) sec INR 1.2 Ratio APTT 80.0 H (23.4-31.7) sec Sodium 140 (136-145) meq/L Potassium 3.7 (3.5-5.1) meq/L Chloride 107 (98-107) meq/L Carbon Dioxide 27.4 (21.0-32.0) meq/L Anion Gap 6 (5-15) meq/L BUN 16 (7-18) mg/dL Creatinine 1.14 (0.60-1.30) mg/dL Estimated GFR 83 L (>89) mL/min Random Glucose 117 H (74-106) mg/dL Calcium 8.2 L (8.5-10.1) mg/dL Total Bilirubin 0.6 (0.2-1.0) mg/dL AST 48 H (15-37) U/L ALT 41 (12-78) U/L Alkaline Phosphatase 101 (45-117) U/L Troponin I 3.52 H* (0.02-0.05) ng/mL Total Protein 7.4 (6.4-8.2) g/dL Albumin 3.5 (3.4-5.0) g/dL Imaging Data Radiologist's impression: Chest X-Ray 05/23/18 00:57 CONCLUSION: No acute cardiopulmonary process. No significant change from prior. Discharge Plan Discharge Disposition Patient Disposition: ED Admit(ED Internal Use Only) Discharge Order Discharge Orders: ED Use Only Admit Order (Routine); Ordered 05/23/18 Ordered By: Js Post Physicians Team ED Provider: Js Post Primary Care Provider: UNKNOWN, Attending Provider: Nelli Montesinos Other Providers: [facility],Insurance Status ED Status: Admitted Patient
[2018-05-23] MEDS ORDERED: fentaNYL Citrate Inj 100 MCG/2 ML Ampul IV.PUSH ONE (03:19)
[2018-05-23] MEDS ORDERED: Nitroglycerin Drip Premix 50 MG/250 ML BOTTLE IV.CONT PRN (03:21)
[2018-05-23 04:32] LABS: INR 1.2 Ratio; Prothrombin Time 11.9 sec (9.8-11.6)
[2018-05-23] MEDS ORDERED: Morphine Sulfate Inj 2 MG/ML Vial IV.PUSH PRN (05:04)
[2018-05-23] MEDS ORDERED: fentaNYL Citrate Inj 100 MCG/2 ML Ampul ONE (08:06)
[2018-05-23] MEDS ORDERED: Heparin/NS PF Inj 1,000 ML ONE (08:06)
[2018-05-23] MEDS ORDERED: Heparin 10,000 UNITS/10 ML Vial (for IV use) ONE (08:06)
--- NOTE | 2018-05-23 08:15 | P.HPIM ---
History of Present Illness Service: Hospitalist Primary Care Physician: UNKNOWN Chief Complaint: Chest pain History of Present Illness: Mr. Baker is a pleasant 48-year-old - [place] male with a history of coronary artery disease status post 2 stent placement, hypertension, hypothyroidism who presents to the emergency department on 05/23/2018 due to 4-day duration of chest pain. His chest pain is at retrosternal and constant. He feels as though somebody is giving him a tight bear hug. His chest discomfort radiates to his shoulders and neck as well as digit 4 and 5 of his left hand. He also reports nausea vomiting as well as diaphoresis associated with this chest discomfort. He has been taking ekli-baf-erdsjzj antacids hoping to get relief. However, due to worsening and persistent chest discomfort he decided to seek medical help. He denies any abdominal pain, cough. Denies any changes in bowel or bladder habits. He was admitted to the hospital on April 23, 2018 due to chest pain and cardiology was consulted. Cardiology recommended a nuclear perfusion stress test. However , patient regrets that he left AGAINST MEDICAL ADVICE without doing any further workup. Past medical history: Coronary artery disease, hypertension, hypothyroidism. Patient underwent 2 stent placements in 2010. Past surgical history: Right leg surgery Social history: Patient quit tobacco about a month ago. He occasionally uses marijuana. Denies using any other illicit drugs. Drinks alcohol occasionally. Family history: Grandfather had heart disease as well as patient's brother. Inpatient Certification Inpatient Certification: I certify that the inpatient services were ordered in accordance with Medicare regulations governing the order. This includes certification that hospital inpatient services are reasonable and necessary and in the case of services not specified as inpatient-only under 42 CFR 419.22(n), that they are appropriately provided as inpatient services in accordance to with the 2-midnight benchmark under 43 CFR 412.3(e) Estimated Total Length of Stay (Days): 3 Plans for Post Hospital Care: Home Review of Systems Review of Systems: all other systems reviewed are negative [facility] Social History Social History Substance History: Active Abuse Second Hand Smoke Exposure: No Smoking Status: Former smoker Tobacco Type: Cigarettes How Often Do You Have a Drink Containing Alcohol: Monthly or less Recent Travel in [facility] within the Last 8 Weeks: No Recent Out of Country Travel within the Last 8 Weeks: No Substance Abuse Detail Marijuana: Substance Use Status: Active Route Used Substance Abuse: By Mouth Reason for Use: Calm Down and Feels Good Immunization History Tetanus Immunization: >5 Years Medications and Allergies Allergies Allergy/AdvReac Type Severity Reaction Status Date / Time banana Allergy Severe GI UPSET Verified 05/23/18 00:54 morphine Allergy Severe Rash Verified 05/23/18 00:54 Home Medications Medication Instructions Recorded Confirmed Type aspirin [Aspirin Low Dose] 81 mg PO DAILY 02/04/18 05/23/18 History levothyroxine 175 mcg PO DAILY 02/04/18 05/23/18 History lisinopril 10 mg PO DAILY 02/04/18 05/23/18 History omega 7-smj-suc-fish oil [Fish Oil] 1 cap PO DAILY 02/04/18 05/23/18 History oxycodone-acetaminophen 1 tab PO Q6H PRN 02/04/18 05/23/18 History baclofen 10 mg PO HS 05/23/18 05/23/18 History cholecalciferol (vitamin D3) 5,000 unit PO DAILY 05/23/18 05/23/18 History [Vitamin D3] Active Medications: Active Medications Heparin Sodium/Dextrose (Heparin/D5w 25,000 U/250 Ml) 25,000 unit in 250 mls @ 0 mls/hr IV.CONT TITRATE PRN; Protocol PRN Reason: Per Protocol Last Admin: 05/23/18 03:32 Dose: 1,000 units/hr, 10 mls/hr Nitroglycerin/Dextrose (Nitroglycerin Drip Premix) 50 mg in 250 mls @ 0 mls/hr IV.CONT TITRATE PRN; Protocol PRN Reason: Per Protocol Last Admin: 05/23/18 04:23 Dose: 16.66 mcg/min, 5 mls/hr Morphine Sulfate (Morphine Inj) 2 mg IV.PUSH Q30M PRN PRN Reason: CHEST PAIN Nitroglycerin (Nitro-Bid 2% Oint) 1 inch TOPICAL Q6HR [facility] Last Admin: 05/23/18 06:52 Dose: 1 inch Ondansetron HCl (Zofran Inj) 4 mg IV.PUSH Q6H PRN PRN Reason: NAUSEA OR VOMITING Sodium Chloride (Ns Inj) 2 ml IV.FLUSH BID JO-ANN Sodium Chloride (Ns Inj) 2 ml IV.FLUSH UNSCH PRN PRN Reason: FLUSH AFTER USING IV ACCESS Physical Exam Vital signs: Vital Signs 05/23/18 00:54 05/23/18 00:57 05/23/18 01:51 Temperature 97.9 F Pulse Rate 80 75 Respiratory Rate 16 18 Blood Pressure 146/85 H 139/79 Pulse Oximetry 98 99 99 05/23/18 07:00 Temperature Pulse Rate 62 Respiratory Rate 17 Blood Pressure 121/71 Pulse Oximetry 97 Intake & Output 05/22/18 05/23/18 05/23/18 18:59 06:59 18:59 Weight 86.183 kg Narrative: GENERAL: This is a well-nourished, well-developed patient, in no apparent distress. SKIN: No rashes, ecchymoses or lesions. Warm and dry. HEAD: Atraumatic. Normocephalic. No temporal or scalp tenderness. EYES: Pupils equal round and reactive. No injection or drainage. ENT: Nose without bleeding, purulent drainage or septal hematoma. Airway patent. NECK: Trachea midline. No lymphadenopathy. Supple, nontender, no meningeal signs. CARDIOVASCULAR: Regular rate and rhythm without murmurs, gallops, or rubs. No JVD. RESPIRATORY: Clear to auscultation. Breath sounds equal bilaterally. No wheezes , rales, or rhonchi. GASTROINTESTINAL: Abdomen soft, non-tender, nondistended. No guarding. MUSCULOSKELETAL: Extremities without clubbing, cyanosis, or edema. NEUROLOGICAL: Awake and alert. Cranial nerves II through XII intact. No focal neurological deficits. Normal speech. Results Labs CBC & Chem 7: 05/23/18 01:58 05/23/18 01:58 Imaging Impressions Chest X-Ray 05/23/18 00:57 CONCLUSION: No acute cardiopulmonary process. No significant change from prior. Caprini VTE Risk Assessment Caprini VTE Risk Assessment: Moderate/High Risk (score >= 2) Caprini Risk Assessment Model: Point Value = 1 Point Value = 2 Point Value = 3 Point Value = 5 Age 41-60 Minor surgery BMI > 25 kg/m2 Swollen legs Varicose veins or History of unexplained or recurrent spontaneous Oral contraceptives or hormone replacement Sepsis (< 1 month) Serious lung disease, including pneumonia (< 1 month) Abnormal pulmonary function Acute myocardial infarction Congestive heart failure (< 1 month) History of inflammatory bowel disease Medical patient at bed rest Age 61-74 Arthroscopic surgery Major open surgery (> 45 min) Laparoscopic surgery (> 45 min) Malignancy Confined to bed (> 72 hours) Immobilizing plaster cast Central venous access Age >= 75 History of VTE Family history of VTE Factor V Leiden Prothrombin [id number] Lupus anticoagulant Anticardiolipin antibodies Elevated serum homocysteine Heparin-induced thrombocytopenia Other congenital or acquired thrombophilia Stroke (< 1 month) Elective arthroplasty Hip, pelvis, or leg fracture Acute spinal cord injury (< 1 month) Prophylaxis Regimen: Total Risk Factor Score Risk Level Prophylaxis Regimen 0-1 Low Early ambulation 2 Moderate Order ONE of the following: *Sequential Compression Device (SCD) *Heparin 5000 units SQ BID 3-4 Higher Order ONE of the following medications: *Heparin 5000 units SQ TID *Enoxaparin/Lovenox 40 mg SQ daily (WT < 150 kg, CrCl > 30 mL/min) *Enoxaparin/Lovenox 30 mg SQ daily (WT < 150 kg, CrCl > 10-29 mL/min) *Enoxaparin/Lovenox 30 mg SQ BID (WT < 150 kg, CrCl > 30 mL/min) AND/OR *Sequential Compression Device (SCD) 5 or more Highest Order ONE of the following medications: *Heparin 5000 units SQ TID (Preferred with Epidurals) *Enoxaparin/Lovenox 40 mg SQ daily (WT < 150 kg, CrCl > 30 mL/min) *Enoxaparin/Lovenox 30 mg SQ daily (WT < 150 kg, CrCl > 10-29 mL/min) *Enoxaparin/Lovenox 30 mg SQ BID (WT < 150 kg, CrCl > 30 mL/min) AND *Sequential Compression Device (SCD) Assessment and Plan Plan Mr. Baker is a pleasant 48-year-old -[place] male with a history of hypertension, hypothyroidism, coronary artery disease status post 2 stent placements in 2010 who presents to the emergency department on 05/23/2018 due to 4-day duration of chest discomfort associated with nausea vomiting, diaphoresis as well as radiation to shoulder, neck, left hand. His troponin was elevated to 3.52. Cardiology was consulted. Acute non-ST elevation myocardial infarction Troponin III 0.52. EKG reviewed and shows T wave inversions in Leads 2, 3 and aVF. Patient is currently on heparin drip as well as nitroglycerin drip. Continue morphine for pain management. Supplemental oxygen as needed. Heart rate is 62. If tolerated, will start beta-gregg. Continue aspirin 81 mg daily. We will start patient on Lipitor 80 mg nightly Cardiac catheterization this morning. Hypertension Hypothyroidism Chronic back pain Patient is diabetic. Thus, amlodipine or nifedipine would be preferable to noah inhibitors for blood pressure. Blood pressure is currently 121/71. However, patient is currently on nitroglycerin drip. We will continue levothyroxine as well as chronic pain medication Percocet. However, it would be preferable to wean off narcotic pain medications. Mild acute kidney injury Baseline creatinine appears to be below 1.0. Currently 1.14. We will monitor. Will provide gentle hydration after cardiac catheterization. BMP in the morning. Full code. Heparin drip. Discharge plan: Anticipated discharge on 05/24/2018.
[2018-05-23] MEDS ORDERED: Iohexol 350 MG/ML 100 ML Vial (for Cath Lab) IVCONTRAST ONE (08:30)
[2018-05-23] MEDS ORDERED: Non-Formulary Drug (Omega 3-Dha-Epa-Fish Oil [Fish Oil] 1 CAP) PO SCH (09:00)
[2018-05-23] MEDS ORDERED: Non-Formulary Drug (Levothyroxine [Levothyroxine] 175 MCG) PO SCH (09:00)
--- NOTE | 2018-05-23 09:13 | MB ---
cc: Eduardo Macdonald MD DATE: 05/23/2018 REASON FOR CONSULTATION: For evaluation of a non-STEMI. CHIEF COMPLAINT: Chest pain. HISTORY OF PRESENT ILLNESS: Mr. Baker is a 48-year-old -[place] male with hypertension, history of smoking including marijuana smoking, who comes in with a non-STEMI. He was just a month ago but left the hospital against medical advice. He describes a substernal chest tightness that has been intermittent for the past 4 days. It is constant this morning. He did quit smoking 1 month ago. Says he is out of his lisinopril but he is taking his other medications. He has known coronary artery disease. On 11/10/2010, he had a 3.5 x 12 mm Vision stent in the distal right coronary artery. On 12/23/2010, he had a 3.0 x 12 mm bare-metal stent in the mid portion of the right coronary artery. He has not been cathed since then. His last nuclear test in 2016 was negative. Cardiac risk factors include smoking, family history, and hypertension. PAST MEDICAL HISTORY: Includes hypertension with left ventricular hypertrophy, hypothyroidism on replacement therapy. SOCIAL HISTORY: He smoked up until a month ago and still smokes marijuana occasionally. PAST MEDICAL HISTORY: 1. Chronic low back pain, on narcotic use. 2. Hypothyroidism. 3. Hypertension. MEDICATIONS: Aspirin, levothyroxine, baclofen, oxycodone (he takes 10 mg he says 3-4 times a day), vitamin D, fish oil, lisinopril 10 mg (which he says he is out of). ALLERGIES: INCLUDE BANANAS AND HE LISTS MORPHINE. HE IS NOT ALLERGIC TO ASPIRIN. I NOTE THAT HAS BEEN LISTED IN PRIOR RECORDS. FAMILY HISTORY: He has a brother with heart disease. He has uncle with heart disease. PHYSICAL EXAMINATION: GENERAL: Well-developed, well-nourished, -[place] male in no acute distress. VITAL SIGNS: Charted. HEENT: Unremarkable. NECK: No JVD. LUNGS: Clear to auscultation. CARDIOVASCULAR: Shows a II/ late systolic mitral regurgitation murmur heard best over the apex. ABDOMEN: Soft, nontender. EXTREMITIES: No clubbing, cyanosis, or edema. Pulses are intact. DIAGNOSTIC DATA: EKG shows sinus rhythm, LVH, LV strain. LABORATORIES: Hematocrit is 39.2. Creatinine 1.14. Troponin 3.52. IMPRESSION: 1. Acute non-ST segment elevation myocardial infarction. 2. History of noncompliance. 3. Mitral regurgitation murmur. 4. Hypothyroidism, replacement therapy. 5. Chronic marijuana use. 6. History of tobacco abuse, which apparently has stopped. PLAN: The patient has given informed consent to go to the general production laborer this morning with cardiac catheterization, possible intervention. We will probably do right radial artery approach in view of his chronic low back pain. Eduardo Macdonald MD VEMatilde/louis , 07:29 AM , 07:37 AM
--- NOTE | 2018-05-23 09:45 | CATHPROC ---
[facility] HIS Report Study Information Study Number Admission Scheduled Start Study Start [id number] May 23 2018 3:53AM 05/23/2018 May 23 2018 7:37AM [place] [facility] Cardiac Pacer/ICD Admit Source Facility Department Emergency department [facility] - [employer] Physician and Clinical Staff Initial Eduardo Osborne Straightening Machine Operator Riki Subramanian,AUDRA Recorder Solitario Faria RCIS(BS) Scrub Anya Us ,(R) Procedures Performed Procedure Location (Site) Vessel Name Angiogram LV LV Ventricle Coronary Angiograms LCA Left Coronary Coronary Angiograms RCA Right Coronary Drug Eluting Inflatio Radial (right) Radial Art. Drug Eluting Inflatio RCA Mid Right Coronary L Heart Cath PTCA RCA Mid Right Coronary Radiation Dosage Wire insertion Radial (right) Radial Art. Equipment Time Print Finishing Worker Description Size Mfg Part Number Used/Scraped [id number] 08:57 [employer] WIRE, ASAHI GRANDSLAM 180CM 180CM Used *[id number] WIRE, BALANCE MIDDLEWEIGHT [id number] 08:48 [employer] 190CM Used 190CM *[id number] TRANSDUCER, TRUWAVE [id number] 07:38 HILL MCCLAIN * Used W/STOCKCOCK *[id number] *[id number] *[id number] 07:38 MALLINCKRODT SYRINGE, ANGIOMAT 150ML 150ML *[id number] Used 2SUB [id number] 07:38 Monaeo BLANKET,WARM AIR CCL * Used *[id number] 07:38 Monaeo PACK, CCL CUSTOM * Used *[id number] 07:38 Monaeo SUPPORT, ARTERIAL ADULT 92860 *[id number] Used [id number] 07:38 [employer] PACER PEN, SKIN DUAL W/ RULER * Used *[id number] 09:01 MEDTRONIC BALLOON, 2.0 X 15MM EUPHORA 15MM Used *[id number] 09:18 [employer]IC STENT, 3.0 15MM ALEX 3.0 15MM Used *[id number] 09:13 [employer]TRONIC STENT, 3.0 26MM ALEX 3.0 26MM Used *[id number] 08:47 Ziebel 30 KELI INDEFLATOR Used *[id number] BAND, RADIAL COMPRESSION TR [id number] 09:33 [employer] 24CM Used SHORT 24 *[id number] 07:38 Ziebel WIRE, EXCHANGE 260CM 3MMJ 260CM Used *[id number] 07:38 NAMIC MANIFOLD, 4 PORT * Used *[id number] [id number] 09:25 NAMIC TUBING, HIGH PRESSURE 48" 48" Used *[id number] 07:38 NYCOMED OMNIPAQUE, 350 MG, 100ML 100ML [id number] Used 09:04 NYCOMED OMNIPAQUE, 350 MG, 150ML 150ML [id number] Used 09:27 NYCOMED OMNIPAQUE, 350 MG, 50ML 50ML [id number] Used 07:38 [employer] JELCO NEEDLE 4056 *[id number] Used CATHETER, FR5 OPTITORQUE [id number] 08:27 [employer] FR 5 Used THEO RADIAL *[id number] SHEATH, FR6 TRANSRADIAL [id number] 07:38 TERClinical DataO [employer]Direct FR 6 Used SLENDER 10CM *[id number] Equipment Model, Serial, Lot Number and Expiration Data Description Model Number Serial Number Lot Number Expiration Date STENT, 3.0 15MM ALEX [id number] 10-06-2019 STENT, 3.0 26MM ALEX [id number] 06-16-2019 History: Current Medications Medication Dosage/Unit Route Frequency Last Date/Time Taken ASA History: Allergies Allergy Reaction morphine Rash banana GI UPSET History: Risk Factors Family History of Hypertension Dyslipidemia Previous RI Previous Heart Failure Premature CAD Yes Yes Yes Yes No Prior Valve Prior PCI Prior PCIDate Prior CABG Surgery No Yes 04/04/2013 No Cerebrovascular Peripheral Artery Chronic Lung On Dialysis Diabetes Disease Disease Disease No No No No No History: Symptoms/Diagnosis Selection Items Chest pain History: Stress Tests Stress or Imaging Studies Performed No History: Other Disease Selection Items CAD HTN History: Other Current Smoker Method Quit Packs a Day Years Used Pack Years No Cigarettes 1 Years Ago 1 15 15 Labs Hgb (g/dl) Hct (%) WBC (l/cumm) Platelets (thousands) 11.60-17.00 35.00-51.00 4.00-11.00 150.00-450.00 13.2 39.4 5.2 214 Glucose (mg/dl) BUN (mg/dl) Creatinine (mg/dl) BUN:Creatinine (1:x) 74.00-106.00 7.00-18.00 0.50-1.30 10.00-20.00 117 16 1.1 14.5 Na (meq/l) K (meq/l) 136.00-145.00 3.50-5.10 140 3.7 INR (PTT:PT) 0.90-1.10 1.2 Troponin I (ng/ml) CPK-MB (ng/ML) 0.02-0.05 0.50-3.60 3.52 Not Drawn Medication Medication Total Dose (Bolus/Oral) Medication Total Dosage/Unit 1% XYLOCAINE 3 mL FENTANYL 100 mcg HEPARIN 3000 units NTG (IC) 100 mcg PLAVIX 600 mg RADIAL COCKTAIL 5 mL (Bolus) VERSED 2 mg Medications (Bolus/Oral) Medication Time Given Dosage/Unit Administered By Reason VERSED 05/23/2018 8:27:14 AM 1 mg Marilynn, Riki 1 mg VERSED given in lab by Riki Subramanian RN in Left Antecubital via Peripheral IV. Ordered by Eduardo Macdonald. FENTANYL 05/23/2018 8:27:20 AM 50 mcg Marilynn, Riki 50 mcg FENTANYL given in lab by Riki Subramanian RN in Left Antecubital via Peripheral IV. Ordered by Eduardo Talamantes. 1% XYLOCAINE 05/23/2018 8:31:46 AM 3 mL Eduardo Macdonald 3 mL 1% XYLOCAINE given in lab by Eduardo Macdonald in Right Radial via Subcutaneous. VERSED 05/23/2018 8:31:58 AM 1 mg Marilynn, Riki 1 mg VERSED given in lab by Riki Subramanian RN in Left Antecubital via Peripheral IV. Ordered by Eduardo Macdonald. FENTANYL 05/23/2018 8:36:00 AM 25 mcg Marilynn, Riki 25 mcg FENTANYL given in lab by Riki Subramanian RN in Left Antecubital via Peripheral IV. Ordered by Eduardo Talamantes. Ntg 200mcg Verapamil 2.5mg Heparin RADIAL COCKTAIL 05/23/2018 8:36:50 AM 5 mL (Bolus) Eduardo Macdonald 2500U 5 mL (Bolus) RADIAL COCKTAIL given in lab by Eduardo Macdonald in Right Radial via Radial. Using [Solutio n Name]. Reason: Ntg 200mcg Verapamil 2.5mg Heparin 2500U. FENTANYL 05/23/2018 8:38:00 AM 25 mcg Riki Subramanian 25 mcg FENTANYL given in lab by Riki Subramanian RN in Left Antecubital via Peripheral IV. Ordered by Eduardo Talamantes. HEPARIN 05/23/2018 8:52:11 AM 3000 units Marilynn, Riki 3000 units HEPARIN given in lab by Riki Subramanian RN in Left Antecubital via Peripheral IV. Ordered by Eduardo Macdonald. NTG (IC) 05/23/2018 9:16:48 AM 100 mcg Eduardo Macdonald 100 mcg NTG (IC) given in lab by Eduardo Macdonald via Intra-coronary. Ordered by Eduardo Macdonald. PLAVIX 05/23/2018 9:35:52 AM 600 mg Riki Subramanian 600 mg PLAVIX given in lab by Riki Subramanian RN via Oral. Ordered by Eduardo Macdonald. Medication (Drip) Medication Time Given Dosage/Unit Concentration/Unit Diluent (ml) Solution HEPARIN DRIP 05/23/2018 7:51:55 AM 1000 units/hr 90027 units 250 D5W Patient arrived on 1000 units/hr HEPARIN DRIP in Right Antecubital via Peripheral IV. Pump/Drip Flow = 10 ml/hr using D5[place] [address] units in 250 ml. HEPARIN DRIP 05/23/2018 9:30:59 AM 0 units/hr 95688 units 250 D5W 0 units/hr HEPARIN DRIP given in lab by Riki Subramanian RN via Peripheral IV. Pump/Drip Flow = 0 ml/hr using D5[place] [address] units in 250 ml. Ordered by Eduardo Macdonald. NITROGLYCERIN DRIP 05/23/2018 7:51:55 AM 20 mcg/min 50 mg 250 D5W Patient arrived on 20 mcg/min NITROGLYCERIN DRIP in Right Antecubital via Peripheral IV. Pump/Drip Fl ow = 6 ml/hr using D5W with a concentration of 50 mg in 250 ml. NITROGLYCERIN DRIP 05/23/2018 9:31:23 AM 5 mcg/min 50 mg 250 D5W 5 mcg/min NITROGLYCERIN DRIP given in lab by Riki Subramanian RN via Peripheral IV. Pump/Drip Flow = 1.5 ml/hr using D5W with a concentration of 50 mg in 250 ml. Ordered by Eduardo Macdonald. Initial Case Assessment Cardiovascular HR Rhythm NIBP Chest Pain 66 nsr 151/94 5 Edema Present Skin color Skin None Normal Warm Dry Circulatory - Right Pulses Dorsalis Pedis Femoral Radial 2 2 2 Scale (0,1,2,3,4,d) Scale (0,1,2,3,4,d) Neurological State Oriented to time-place- Alert Moves all extremities person Respiration - General Respiration Rate SpO2 (%) (B/min) 15 96 Final Case Assessment Cardiovascular HR Rhythm NIBP Chest Pain 71 nsr 151/94 5 Edema Present Skin color Skin None Normal Warm Dry Circulatory - Right Pulses Dorsalis Pedis Femoral Radial 2 2 2 Scale (0,1,2,3,4,d) Scale (0,1,2,3,4,d) Neurological State Oriented to time-place- Alert Moves all extremities person Respiration - General Respiration Rate SpO2 (%) (B/min) 15 96 Chronological Log Time Study Chronological Log 7:51:44 Patient arrived via Bed. 7:51:45 Patient Name, D.O.B, / Armband Verified By R.N. 7:51:45 Consent signed by the physician and the patient and verified by the [employer] staff. 7:51:46 Pre-op and post- op instructions given; patient acknowledges understanding of instructions. 7:51:47 Presedation assessment performed by [employer] RN. 7:51:48 Allens test performed on the right radial and ulnar artery. 7:51:49 Immediate Presedation assesment performed by physician. 7:51:50 Patient has been NPO for More than 6Hrs. 7:51:51 Skin Breakdown- 7:51:51 Patient Warmer Placed on the Table. 7:51:52 Jordin Prominences Protected 7:51:54 A # 20 IV was noted in the Antecubital (left). Grade = 0 7:51:54 A # 20 IV was noted in the Antecubital (right). Grade = 0 Patient arrived on 20 mcg/min NITROGLYCERIN DRIP in Right Antecubital via Peripheral IV. Pump/Dr ip Flow = 6 ml/hr 7:51:55 using D5W with a concentration of 50 mg in 250 ml. Patient arrived on 1000 units/hr HEPARIN DRIP in Right Antecubital via Peripheral IV. Pump/Drip Flow = 10 ml/hr using 7:51:55 D[place] [address] units in 250 ml. 7:51:55 History and physical on the chart or being dictated. Vitals capture started with the following parameters, Patient=Adult, Interval=5 min, Initial Pre sfgeh=833 mmHg, 7:57:17 Deflation Rate=5 mmHg, Cuff placed on Right Limb 7:57:56 HR=65 bpm, JDWF=533/87 mmhg, SpO2=98.0 %, Pain=0, Lee=10, Murray=2 8:02:57 HR=65 bpm, GFLU=125/94 mmhg, SpO2=97.0 %, Resp=16 B/min, Pain=5, Lee=10, Murray=2 Assessment: Initial Case, HR=66 BPM, Rhythm=nsr, QDPG=082/94 mmhg, Chest Pain=5, Edema=None, Col or=Normal, Skin = Warm, Dry 8:03:05 Right Pulses: Derrick Ped=2, Femoral=2, Radial=2 Neurological: State=Alert, Ox3, JOE Respiration: Resp=15 B/min, SpO2=96 % 8:03:26 Reference ECG taken 8:08:00 HR=64 bpm, AYML=310/89 mmhg, SpO2=98.0 %, Resp=11 B/min, Pain=0, Ele=10, Murray=2 8:08:09 Right Radial and groin(s) prepped with 2% chlorhexidine, and draped after a 3 min. waiting t brian. 8:11:17 MD paged 8:12:59 HR=63 bpm, KEVL=826/88 mmhg, SpO2=99.0 %, Resp=14 B/min, Pain=5, Lee=10, Murray=2 8:16:19 Pressure channel 1 zeroed. 8:18:00 HR=67 bpm, WRNM=964/88 mmhg, SpO2=97.0 %, Resp=13 B/min, Pain=5, Lee=10, Murray=2 8:23:01 HR=61 bpm, OHYP=005/89 mmhg, SpO2=98.0 %, Resp=10 B/min, Pain=5, Lee=10, Murray=2 8:25:06 MD arrived. 8:27:14 1 mg VERSED given in lab by Riki Subramanian RN in Left Antecubital via Peripheral IV. Ordered by Eduardo Macdonald. 8:27:20 50 mcg FENTANYL given in lab by Riki Subramanian RN in Left Antecubital via Peripheral IV. Orde red by Eduardo Macdonald. 8:28:00 HR=63 bpm, EATC=641/88 mmhg, SpO2=98.0 %, Resp=12 B/min, Pain=5, Lee=10, Murray=2 Time Out. Correct patient, correct procedure, correct physician, labs, allergies, and equipment verified with chemical lab technician 8:30:07 team present. Fire risk assesment completed (see hard stop sheet for coding). Time Out Concu rred by MD and individual staff in procedure. 8:31:46 Case Start 8:31:46 3 mL 1% XYLOCAINE given in lab by Eduardo Macdonald in Right Radial via Subcutaneous. 8:31:58 1 mg VERSED given in lab by Riki Subramanian RN in Left Antecubital via Peripheral IV. Ordered by Eduardo Macdonald. 8:33:04 HR=65 bpm, IJMY=342/81 mmhg, SpO2=98.0 %, Resp=15 B/min, Pain=5, Lee=10, Murray=2 8:36:00 25 mcg FENTANYL given in lab by Riki Subramanian RN in Left Antecubital via Peripheral IV. Orde red by Eduardo Macdonald. 8:36:38 Access site was Right Radial Artery . A SHEATH, FR6 TRANSRADIAL SLENDER 10CM FR 6 was advanced into the Radial (right) using the Raphael waller 8:36:42 technique. 5 mL (Bolus) RADIAL COCKTAIL given in lab by Eduardo Macdonald in Right Radial via Radial. Using [So lution Name]. 8:36:50 Reason: Ntg 200mcg Verapamil 2.5mg Heparin 2500U. A CATHETER, FR5 OPTITORQUE THEO RADIAL FR 5 was advanced over a wire. OMNIPAQUE, 350 MG, 100ML 100ML 8:36:57 was used for injections. 8:38:00 25 mcg FENTANYL given in lab by Riki Subramanian RN in Left Antecubital via Peripheral IV. Orde red by Eduardo Macdonald. 8:38:01 HR=77 bpm, BUGD=437/82 mmhg, SpO2=95.0 %, Resp=9 B/min, Pain=0, Lee=10, Murray=2 Recorded Pressure: Ao, HR=72, Condition=Condition 1 8:40:03 (Aorta) Ao 138/86/110 8:41:03 The RCA was injected and visualized at various angles. OMNIPAQUE, 350 MG, 100ML 100ML used. 8:42:24 The LCA was injected and visualized at various angles. OMNIPAQUE, 350 MG, 100ML 100ML used. 8:43:04 HR=69 bpm, EWDC=356/81 mmhg, SpO2=93.0 %, Resp=10 B/min, Pain=0, Lee=10, Murray=2 After removing the current catheter a AL 1 GUIDE CATHETER FR 6 was advanced over a WIRE, EXCHANG E 260CM 8:47:51 3MMJ 260CM. 8:47:59 HR=74 bpm, WJZM=733/83 mmhg, SpO2=96.0 %, Resp=12 B/min, Pain=0, Lee=10, Murray=2 8:48:15 Activated Clotting Time Drawn Recorded Pressure: LV, HR=75, Condition=Condition 1 8:50:02 (Left Ventricle) LV 146/8/20 Recorded Pressure: LV, Ao, HR=74, Condition=Condition 1 8:50:10 (Left Ventricle) LV 147/9/22, (Aorta) Ao 140/79/109 Recorded Pressure: Ao, HR=76, Condition=Condition 1 8:50:34 (Aorta) Ao 138/78/106 8:50:45 ACT (Normal Range 90-180) = 196 8:52:11 3000 units HEPARIN given in lab by Riki Subramanian, RN in Left Antecubital via Peripheral IV. O rdered by Eduardo Macdonald. 8:52:54 A WIRE, BALANCE MIDDLEWEIGHT 190CM 190CM was inserted via Radial (right). 8:53:02 HR=74 bpm, DBCF=515/87 mmhg, SpO2=95.0 %, Resp=13 B/min, Pain=0, Lee=10, Murray=2 8:57:01 A WIRE, ASAHI GRANDSLAM 180CM 180CM was inserted via Radial (right). 8:58:38 HR=68 bpm, SGID=839/88 mmhg, SpO2=98.0 %, Resp=10 B/min, Pain=0, Lee=10, Murray=2 8:59:16 BMW Wire removed 9:02:58 HR=66 bpm, XCMT=281/90 mmhg, Resp=13 B/min, Pain=0, Lee=10, Murray=2 9:04:10 Activated Clotting Time Drawn A BALLOON, 2.0 X 15MM EUPHORA 15MM was inserted over WIRE, ASAHI GRANDSLAM 180CM 180CM via the R adial 9:05:54 (right). 9:07:58 ACT (Normal Range 90-180) = 344 9:08:01 HR=67 bpm, WHJI=284/84 mmhg, SpO2=97.0 %, Resp=19 B/min, Pain=0, Lee=10, Murray=2 A BALLOON, 2.0 X 15MM EUPHORA 15MM over a WIRE, ASAHI GRANDSLAM 180CM 180CM in the RCA Mid was i nflated 9:08:09 using a 30 KELI INDEFLATOR at 14 keli for 20 sec. A BALLOON, 2.0 X 15MM EUPHORA 15MM over a WIRE, ASAHI GRANDSLAM 180CM 180CM in the RCA Mid was i nflated 9:08:39 using a 30 KELI INDEFLATOR at 14 keli for 20 sec. 9:10:25 Balloon Removed. A STENT, 3.0 26MM ALEX 3.0 26MM was advanced through a AL 1 GUIDE CATHETER FR 6 over a WIRE, ASA HI 9:12:39 GRANDSLAM 180CM 180CM. 9:13:00 HR=70 bpm, BPUN=905/93 mmhg, SpO2=96 %, Resp=16 B/min, Pain=0, Lee=10, Murray=2 A STENT, 3.0 26MM ALEX 3.0 26MM was deployed using a 30 KELI INDEFLATOR at 18 atmospheres for 30 seconds in 9:14:35 the Radial (right). 9:16:04 Delivery device removed 9:16:48 100 mcg NTG (IC) given in lab by Eduardo Macdonald via Intra-coronary. Ordered by Eduardo Macdonald. 9:18:05 HR=71 bpm, NINW=987/73 mmhg, SpO2=96.0 %, Resp=16 B/min, Pain=0, Lee=10, Murray=2 A STENT, 3.0 15MM ALEX 3.0 15MM was advanced through a AL 1 GUIDE CATHETER FR 6 over a WIRE, ASA HI 9:18:31 GRANDSLAM 180CM 180CM. A STENT, 3.0 15MM ALEX 3.0 15MM was deployed using a 30 KELI INDEFLATOR at 13 atmospheres for 25 seconds in 9:19:52 the RCA Mid. 9:20:32 Re-inflated the stent balloon in the RCA Mid to 12 KELI for 22 seconds. 9:21:56 Delivery device removed 9:21:59 Wire removed 9:23:02 HR=69 bpm, LRBE=765/80 mmhg, SpO2=94.0 %, Resp=12 B/min, Pain=0, Lee=10, Murray=2 After removing the current catheter a PIGTAIL ANG. INFINITI CATHETER FR 5 was advanced over a WI RE, EXCHANGE 9:24:03 260CM 3MMJ 260CM. Recorded Pressure: LV, HR=65, Condition=Condition 1 9:26:49 (Left Ventricle) LV 141/10/27 9:28:38 HR=65 bpm, SJSQ=370/92 mmhg, SpO2=95.0 %, Resp=13 B/min, Pain=0, Lee=10, Murray=2 9:29:00 The LV was injected at 10 cc/sec for a total of 30. OMNIPAQUE, 350 MG, 50ML 50ML used. Recorded Pressure: LV, Ao, HR=70, Condition=Condition 1 9:30:10 (Left Ventricle) LV 135/10/24, (Aorta) Ao 143/83/109 9:30:24 Catheter was removed 0 units/hr HEPARIN DRIP given in lab by Riki Subramanian RN via Peripheral IV. Pump/Drip Flow = 0 m l/hr using D5W with 9:30:59 [place] [address] units in 250 ml. Ordered by Eduardo Macdonald. 9:31:10 Case End (Physician broke scrub) 5 mcg/min NITROGLYCERIN DRIP given in lab by Riki Subramanian, RN via Peripheral IV. Pump/Drip Flow = 1.5 ml/hr using 9:31:23 D5W with a concentration of 50 mg in 250 ml. Ordered by Eduardo Macdonald. Assessment: Final Case, HR=71 BPM, Rhythm=nsr, MOSR=468/94 mmhg, Chest Pain=5, Edema=None, Color =Normal, Skin = Warm, Dry 9:32:58 Right Pulses: Derrick Ped=2, Femoral=2, Radial=2 Neurological: State=Alert, Ox3, JOE Respiration: Resp=15 B/min, SpO2=96 % 9:33:04 HR=71 bpm, ZAKI=512/92 mmhg, SpO2=97.0 %, Resp=13 B/min, Pain=0, Lee=10, Murray=2 Radial Compression Device Used. 10 mLs of air placed in BAND, RADIAL COMPRESSION TR SHORT 24 24C M. Affected 9:33:07 hand 98 % O2 saturation. 9:33:20 mGy is equal to or greater than 2000 mGy due to: Complex Procedure 9:33:24 Sterile dressing applied to site 9:33:25 No case complications noted. 9:33:25 Cine recording checked. 9:33:28 Holding Area notified of successful intervention. 9:33:29 Bedside Report will be given. 9:33:29 Implantable Device card placed in patient's chart. 9:33:32 A Left Heart Cath was performed. 9:35:52 600 mg PLAVIX given in lab by Riki Subramanian, RN via Oral. Ordered by Eduardo Macdonald. 9:38:09 HR=65 bpm, LQUC=663/87 mmhg, SpO2=96.0 %, Resp=14 B/min, Pain=0, Lee=10, Murray=2 9:43:08 HR=74 bpm, YDEV=310/90 mmhg, SpO2=98.0 %, Resp=18 B/min, Pain=0, Lee=10, Murray=2 9:52:57 [facility] Study - Contrast Media Used In Study Contrast Total Opened (mL) Total Used (mL) Total Wasted (mL) Omnipaque 350 185 185 0 End Study - Maximum Contrast Load Max Contrast Load (mL) 390.9 End Study - Radiation Exposure Fluoro Time Fluoro Dose (mGy) Cine Dose (uGym2) (minutes) 19.7 2260 41435 End Study - Patient Disposition Complications Transferred To Interventional Outcome No [employer] Holding successful
[2018-05-23] MEDS ORDERED: Misc Info for Pharmacy OTHER SCH (10:00)
--- NOTE | 2018-05-23 10:15 | MA ---
cc: Eduardo Macdonald MD DATE: 05/23/2018 PROCEDURES PERFORMED: Left heart catheterization, left ventriculography, coronary angiography, balloon angioplasty, and tandem stenting of the distal right coronary artery with drug-eluting stents. DESCRIPTION OF PROCEDURE: The patient was brought to the cardiac catheterization lab in fasting state. The right wrist was prepped and draped in sterile fashion. Using 1% lidocaine for local anesthesia, access was obtained and a 6-Egyptian Terumo Slender sheath placed. Coronary angiography was then performed using a Jeff catheter. I then opted to perform intervention on the right coronary artery. A left one Amplatz catheter was used to give me good backup for the right coronary. We then tried to cross the right coronary artery occlusion, but I was unsuccessful with a BMW wire. I was able to get a Grand Slam wire most of the way through, but not all the way through. I used a 2.0 balloon, and with the support from the balloon, was able to get the wire passed distally into the distal right coronary artery. Balloon angioplasty was then performed with a 2.0 balloon. I then placed my first stent, which was a 3.0 x 26 mm Violet stent at 18 atmospheres. There was a stenosis in the proximal end, so in an overlapping fashion, I placed a 3.0 x 15 mm Violet stent proximally at 13 atmospheres. I advanced the balloon at the overlap of the 2 stents, and did a single inflation at 20 atmospheres. Angiography now demonstrated an excellent result in the right coronary artery. The guiding catheter was removed gently. I then used an angled pigtail catheter to do an LV gram and a pullback. This was then removed over a wire. The sheath has been removed with a Terumo band placed. There were no complications. The procedure was done with IV heparin with a therapeutic ACT achieved. FINDINGS: HEMODYNAMICS: Left ventricular pressure is 135/10 with an end diastolic pressure elevated at 24. Aortic pressure is 143/83 with a mean of 109. LEFT VENTRICULOGRAPHY: Left ventriculography shows an EF about 40% with posterobasal akinesis. There is 2-3+ mitral regurgitation seen. CORONARY ANGIOGRAPHY: Left main coronary artery: The left main coronary artery appears normal. It bifurcates into the LAD and circumflex vessels. The LAD has about 20% ostial disease, and then about a 30% eccentric proximal disease, and then minor irregularities from there on. The circumflex artery gives off a very large early marginal branch, almost like a ramus intermedius vessel, which only has a 10% to 20% stenosis proximally. Just past this very large early marginal branch, the circumflex artery has about a 40% to 50% stenosis. It then continues down, and gives off an atrial branch and 2 additional posterolateral branches. The right coronary artery is dominant and demonstrates somewhat diffuse disease. The proximal vessel has about 30% stenosis on a curve. Distally, it is totally occluded. RESULTS OF INTERVENTION: Following stenting of the distal right coronary artery, a 0% residual stenosis had been achieved. There was at least 50% stenosis of the PDA branch that was not stented, and about 25% disease of the posterolateral branch. RAMAKRISHNA 3 flow has been re-established in the right coronary artery. CONCLUSION: 1. Two-vessel coronary artery disease with about 50% stenosis of the mid circumflex, and total occlusion of the distal right coronary artery at the site of previous stents. 2. Successful angioplasty of the right coronary artery with placement of 2 drug-eluting stents. 3. Impaired left ventricular function, estimated ejection fraction of 40%. 4. Moderate to severe mitral regurgitation as described above. PLAN: The patient will continue on aspirin and Plavix for a minimum of 1 year. We will get an echo for further assessment of his mitral regurgitation. Continue aspirin, Plavix, beta gregg, and SUNDAR inhibitor. MD JACOB Meyers/paulina , 09:43 AM , 09:52 AM
[2018-05-23] MEDS: Metoprolol Tartrate 25 MG Tablet PO SCH ×2 (12:45→22:04)
[2018-05-23] MEDS: oxyCODONE/Acetaminophen 10/325 Tablet PO PRN ×2 (12:45→22:04)
[2018-05-23] MEDS: Sod Chloride 0.9% Inj 1,000 ML IV.CONT SCH ×2 (12:50→22:03)
[2018-05-23 16:13] LABS: Troponin I 11.7 ng/mL (0.02-0.05)
[2018-05-23 16:25] LABS: CKMB Percent 2.8 % (0.0-4.0); Creatine Kinase MB 8.9 ng/mL (0.5-3.6)
--- NOTE | 2018-05-23 16:53 | ECHRPT ---
Indication: ASSESSMENT OF MR CONCLUSIONS Normal left ventricular size. Wall thickness is normal. The left ventricular systolic function is normal with an estimated ejection fraction in the range of 55-60%. Yojwy-fj-qctd mitral valve regurgitation. Trace aortic valve regurgitation. There is trace tricuspid valve regurgitation. The estimated pulmonary arterial pressure is 21mmHg. BP: / HR: Rhythm: Sinus MEASUREMENTS (Male / Female) Normal Values Technical Quality:Fair 2D ECHO LV Diastolic Diameter PLAX 4.8 cm 4.2 - 5.9 / 3.9 - 5.3 cm LV Systolic Diameter PLAX 3.4 cm IVS Diastolic Thickness 1.0 cm 0.6 - 1.0 / 0.6 - 0.9 cm LVPW Diastolic Thickness 1.0 cm 0.6 - 1.0 / 0.6 - 0.9 cm LV Relative Wall Thickness 0.4 RV Internal Dim ED PLAX 3.0 cm LVOT Diameter 1.8 cm Aortic Root Diameter 3.0 cm LA Systolic Diameter LX 3.1 cm 3.0 - 4.0 / 2.7 - 3.8 cm DOPPLER AV Peak Velocity 166.0 cm/s AV Peak Gradient 11.0 mmHg LVOT Peak Velocity 113.0 cm/s LVOT Peak Gradient 5.1 mmHg AV Area Cont Eq pk 1.7 cm Mitral E Point Velocity 96.7 cm/s Mitral A Point Velocity 102.0 cm/s Mitral E to A Ratio 0.9 LV E' Lateral Velocity 12.4 cm/s Mitral E to LV E' Lateral Ratio 7.8 LV E' Septal Velocity 9.9 cm/s Mitral E to LV E' Septal Ratio 9.7 TR Peak Velocity 168.0 cm/s TR Peak Gradient 11.3 mmHg Right Atrial Pressure 10.0 mmHg Pulmonary Artery Systolic Pressu 21.3 mmHg Right Ventricular Systolic Press 21.3 mmHg PV Peak Velocity 114.0 cm/s PV Peak Gradient 5.2 mmHg FINDINGS LEFT VENTRICLE Normal left ventricular size. Wall thickness is normal. The left ventricular systolic function is normal with an estimated ejection fraction in the range of 55-60%. RIGHT VENTRICLE Normal right ventricular size and systolic function. LEFT ATRIUM The left atrial size is normal. RIGHT ATRIUM The right atrial size is normal. ATRIAL SEPTUM Normal atrial septal thickness without atrial level shunting by limited color doppler interrogation. AORTA The aortic root and proximal ascending aorta are normal in size on limited imaging. MITRAL VALVE Structurally normal mitral valve. Ibmsu-zw-[id number] mitral valve regurgitation. AORTIC VALVE The aortic valve is not well visualized. Trace aortic valve regurgitation. TRICUSPID VALVE There is trace tricuspid valve regurgitation. The estimated pulmonary arterial pressure is 21mmHg. PULMONARY VALVE No pulmonary valve regurgitation or stenosis. VESSELS The inferior vena cava is normal in size. PERICARDIUM No pericardial effusion. Brent Carias (Electronically Signed) Final Date:23 May 2018 16:52
--- NOTE | 2018-05-23 16:57 | ECG ---
Date Performed: 05/23/2018 Time Performed: 01:08:54 PTAGE: 48 years EKG: Sinus rhythm LEFT VENTRICULAR HYPERTROPHY AND ST-T CHANGE small Q waves in the inferior leads are new from prior tracing but are nondiagnostic ABNORMAL ECG PREVIOUS TRACING : 04/23/2018 05.15 DOCTOR: Eduardo Macdonald Interpretating Date/Time 05/23/2018 16:56:44
[2018-05-23] MEDS ORDERED: Baclofen 10 MG Tablet PO SCH (21:00)
[2018-05-23 22:10] LABS: Troponin I 7.15 ng/mL (0.02-0.05)
[2018-05-24] MEDS: Levothyroxine 150 MCG Tablet PO SCH ×2 (03:10→05:14)
[2018-05-24 03:42] VITALS: O2SAT 98
[2018-05-24] MEDS: Sod Chloride 0.9% Inj 1,000 ML IV.CONT SCH ×2 (05:06→05:53)
[2018-05-24] MEDS: oxyCODONE/Acetaminophen 10/325 Tablet PO PRN (05:17)
[2018-05-24 05:52] VITALS: RESP 17
[2018-05-24 06:30] LABS: Baso % (Auto) 0.3 % (0.0-2.0); Eos # (Auto) 0.2 th/mm3 (0.0-0.4); Eos % (Auto) 4.7 % (0.0-4.0); Hematocrit 38.5 % (39.0-51.0); Hemoglobin 12.8 gm/dL (13.0-17.0); Lymph # (Auto) 1.9 th/mm3 (1.0-4.8); Lymph % (Auto) 43.7 % (9.0-44.0); Mean Corpuscular HGB Conc 33.3 % (32.0-36.0); Mean Corpuscular Hemoglobin 30.7 pg (27.0-34.0); Mean Corpuscular Volume 92.1 fL (80.0-100.0); Mean Platelet Volume 8.5 fL (7.0-11.0); Mono # (Auto) 0.4 th/mm3 (0.0-0.9); Mono % (Auto) 9.3 % (0.0-8.0); Neut # (Auto) 1.8 th/mm3 (1.8-7.7); Platelet Count 182 th/mm3 (150-450); Red Blood Count 4.18 mil/mm3 (4.50-5.90); Red Cell Distribution Width 13.9 % (11.6-17.2); White Blood Count 4.3 th/mm3 (4.0-11.0)
[2018-05-24 06:57] LABS: Anion Gap 8 meq/L (5-15); Blood Urea Nitrogen 10 mg/dL (7-18); Calcium 7.9 mg/dL (8.5-10.1); Carbon Dioxide 27.1 meq/L (21.0-32.0); Chloride 107 meq/L (98-107); Glomerular Filtration Rate Greater Than 89 mL/min (>89); Glucose,Random 84 mg/dL (74-106); Potassium 3.7 meq/L (3.5-5.1); Sodium 142 meq/L (136-145)
[2018-05-24 07:58] VITALS: BP 150/71; PULSE 73; TEMP 98.1
[2018-05-24] MEDS: Metoprolol Tartrate 25 MG Tablet PO SCH (08:03)
--- NOTE | 2018-05-24 08:42 | P.PNIM ---
Subjective Interval history: No overnight events, denies any chest pain or palpitations. Status post cardiac catheterization yesterday. Physical Exam Vital signs: Vital Signs 05/23/18 11:24 05/23/18 18:00 05/23/18 19:00 Temperature 97.8 F Pulse Rate 66 93 H Respiratory Rate 18 Blood Pressure 154/99 H Pulse Oximetry 93 L 100 05/23/18 20:00 05/23/18 21:00 05/23/18 22:00 Temperature 98.3 F Pulse Rate 76 70 68 Respiratory Rate 18 Blood Pressure 154/88 H Pulse Oximetry 99 05/23/18 23:00 05/24/18 00:00 05/24/18 01:00 Temperature 98.1 F Pulse Rate 65 64 61 Respiratory Rate 19 Blood Pressure 115/73 Pulse Oximetry 97 05/24/18 02:00 05/24/18 03:00 05/24/18 03:41 Temperature 98.3 F Pulse Rate 73 62 63 Respiratory Rate 18 Blood Pressure 140/87 Pulse Oximetry 98 05/24/18 04:00 05/24/18 05:00 05/24/18 05:52 Temperature Pulse Rate 61 87 Respiratory Rate 17 Blood Pressure Pulse Oximetry 05/24/18 06:00 05/24/18 07:57 05/24/18 07:58 Temperature 98.1 F Pulse Rate 62 73 Respiratory Rate 17 Blood Pressure 150/71 H Pulse Oximetry 98 98 Intake & Output 05/23/18 05/24/18 05/24/18 18:59 06:59 18:59 Intake Total 240 / 240 1999 Output Total 650 / 650 Balance 240 / 240 1350 / 1350 Weight 84.9 kg Intake: IV 1999 NS Inj 1,000 ML @ 100 mls/hr IV 1999 .CONT .Q10H [facility] Rx#:[id number] Oral 240 / 240 Output: Urine 650 / 650 Other: Date of Last Bowel Movement 05/23/18 Narrative: GENERAL: This is a well-nourished, well-developed patient, in no apparent distress. CARDIOVASCULAR: Regular rate and rhythm without murmurs, gallops, or rubs. No JVD. RESPIRATORY: Clear to auscultation. Breath sounds equal bilaterally. No wheezes , rales, or rhonchi. GASTROINTESTINAL: Abdomen soft, non-tender, nondistended. No guarding. MUSCULOSKELETAL: Extremities without clubbing, cyanosis, or edema. NEUROLOGICAL: Awake and alert. Cranial nerves II through XII intact. No focal neurological deficits. Normal speech. Results Labs CBC & Chem 7: 05/24/18 05:40 05/24/18 05:40 Assessment and Plan Plan Mr. Baker is a pleasant 48-year-old -[place] male with a history of hypertension, hypothyroidism, coronary artery disease status post 2 stent placements in 2010 who presents to the emergency department on 05/23/2018 due to 4-day duration of chest discomfort associated with nausea vomiting, diaphoresis as well as radiation to shoulder, neck, left hand. His troponin was elevated to 3.52. Cardiology was consulted. Acute non-ST elevation myocardial infarction Troponin III 0.52. EKG reviewed and shows T wave inversions in Leads 2, 3 and aVF. - s/p PCI @V CAD about 50% stenosis of mid circumflex and total occlusion of the distal RCA; PCI to RCA, EF 40% Heart rate is 62. Continue aspirin 81 mg daily, plavix x 1 years, statin, lisinopril, beta- blockers. Hypertension Hypothyroidism Chronic back pain Patient is diabetic. Blood pressure is currently 121/71. Mild acute kidney injury resolved. Full code. Heparin drip. Discharge plan: Discharge today after cleared by cardiology.
[2018-05-24] MEDS ORDERED: Lisinopril 10 MG Tablet PO SCH (09:00)
[2018-05-24] MEDS ORDERED: Metoprolol Tartrate 25 MG Tablet PO SCH (09:30)
--- NOTE | 2018-05-24 09:52 | P.DS ---
DS: Providers Date of admission: 05/23/18 03:53 Primary care physician: UNKNOWN Consults: 05/23/18 03:38 Consult to Cardiology Routine Consulting Provider: Julio Post Does the patient have a Jitney Driver who follows them?: No Preferred Supervisor [employer]:: Julio Post Reason for Consultation: NSTEMI Notified:: Service Spoke with:: JOSE RAUL Date Notified:: 05/23/18 Time Notified:: 04:46 Ordering Provider: TEODORA 05/23/18 04:00 HUB Only Consult Order Routine Consulting Provider: [facility],Insurance Brief History from admission: Mr. Baker is a pleasant 48-year-old - [place] male with a history of coronary artery disease status post 2 stent placement, hypertension, hypothyroidism who presents to the emergency department on 05/23/2018 due to 4-day duration of chest pain. His chest pain is at retrosternal and constant. He feels as though somebody is giving him a tight bear hug. His chest discomfort radiates to his shoulders and neck as well as digit 4 and 5 of his left hand. He also reports nausea vomiting as well as diaphoresis associated with this chest discomfort. He has been taking meqw-zhu-gxvkmdk antacids hoping to get relief. However, due to worsening and persistent chest discomfort he decided to seek medical help. He denies any abdominal pain, cough. Denies any changes in bowel or bladder habits. He was admitted to the hospital on April 23, 2018 due to chest pain and cardiology was consulted. Cardiology recommended a nuclear perfusion stress test. However , patient regrets that he left AGAINST MEDICAL ADVICE without doing any further workup. Past medical history: Coronary artery disease, hypertension, hypothyroidism. Patient underwent 2 stent placements in 2010. Past surgical history: Right leg surgery Social history: Patient quit tobacco about a month ago. He occasionally uses marijuana. Denies using any other illicit drugs. Drinks alcohol occasionally. Family history: Grandfather had heart disease as well as patient's brother. DS: Diagnosis Discharge Diagnosis (1) Chest pain: Status: Acute (2) NSTEMI (non-ST elevated myocardial infarction): Status: Acute DS: Summary Mr. Baker is a pleasant 48-year-old -Aust[place] male with a history of hypertension, hypothyroidism, coronary artery disease status post 2 stent placements in 2010 who presents to the emergency department on 05/23/2018 due to 4-day duration of chest discomfort associated with nausea vomiting, diaphoresis as well as radiation to shoulder, neck, left hand. His troponin was elevated to 3.52. Cardiology was consulted.Troponin III 0.52. EKG reviewed and shows T wave inversions in Leads 2, 3 and aVF. s/p PCI @V CAD about 50% stenosis of mid circumflex and total occlusion of the distal RCA; PCI to RCA, EF 40%. Continue aspirin 81 mg daily, plavix x 1 years, statin, lisinopril, beta-blockers. Patient also had mild kidney injury on admission which volume resuscitation. Time Spent with Patient Total time spent providing and/or coordinating discharge services: Greater than 30 minutes Exam Narrative Exam Narrative: Narrative: GENERAL: This is a well-nourished, well-developed patient, in no apparent distress. CARDIOVASCULAR: Regular rate and rhythm without murmurs, gallops, or rubs. No JVD. RESPIRATORY: Clear to auscultation. Breath sounds equal bilaterally. No wheezes , rales, or rhonchi. GASTROINTESTINAL: Abdomen soft, non-tender, nondistended. No guarding. MUSCULOSKELETAL: Extremities without clubbing, cyanosis, or edema. NEUROLOGICAL: Awake and alert. Cranial nerves II through XII intact. No focal neurological deficits. Normal speech. Results Labs on day of discharge: Labs from last 24 hours 05/24/18 05/24/18 05/23/18 05:40 05:40 21:14 WBC 4.3 RBC 4.18 L Hgb 12.8 L Hct 38.5 L MCV 92.1 MCH 30.7 MCHC 33.3 RDW 13.9 Plt Count 182 MPV 8.5 Neut % (Auto) 42.0 Lymph % (Auto) 43.7 [place] % (Auto) 9.3 H Eos % (Auto) 4.7 H Baso % (Auto) 0.3 Neut # (Auto) 1.8 Lymph # (Auto) 1.9 [place] # (Auto) 0.4 Eos # (Auto) 0.2 Baso # (Auto) 0.0 WBC Differential . Differential Comment Auto diff final APTT Sodium 142 Potassium 3.7 Chloride 107 Carbon Dioxide 27.1 Anion Gap 8 BUN 10 Creatinine 0.82 Estimated GFR Greater than 89 Random Glucose 84 Calcium 7.9 L Total Creatine Kinase 290 CK-MB (CK-2) CK-MB (CK-2) % Troponin I 7.15 H* 05/23/18 05/23/18 14:46 14:46 WBC RBC Hgb Hct MCV MCH MCHC RDW Plt Count MPV Neut % (Auto) Lymph % (Auto) [place] % (Auto) Eos % (Auto) Baso % (Auto) Neut # (Auto) Lymph # (Auto) [place] # (Auto) Eos # (Auto) Baso # (Auto) WBC Differential Differential Comment APTT 29.6 D Sodium Potassium Chloride Carbon Dioxide Anion Gap BUN Creatinine Estimated GFR Random Glucose Calcium Total Creatine Kinase 323 H CK-MB (CK-2) 8.9 H CK-MB (CK-2) % 2.8 Troponin I 11.70 H* Impressions ITS Impressions Chest X-Ray 05/23/18 00:57 CONCLUSION: No acute cardiopulmonary process. No significant change from prior. Discharge Plan Discharge Disposition Patient Disposition: Discharge Home Discharge Condition Condition: Good Discharge Order Discharge Orders: Discharge Order (Routine); Ordered 05/24/18 Ordered By: Siri Will Cardiology Clear for Discharge (Routine); Ordered 05/24/18 Ordered By: Eduardo Macdonald Discharge Details Anticipated Discharge Date: 05/24/18 Discharge Comment: d/c after seen and cleared by cardiology Physicians Team Primary Care Provider: UNKNOWN, Attending Provider: Siri Will Other Providers: [facility],Insurance ; Julio Post Rxs /Orders / Referrals /Forms Prescriptions: New aspirin 81 mg Tablet,Chewable 81 mg PO DAILY Qty: 90 RF: 3 metoprolol tartrate 25 mg tablet 25 mg PO BID Qty: 60 RF: 11 atorvastatin 80 mg tablet 80 mg PO DAILY Qty: 30 RF: 0 clopidogrel [Plavix] 75 mg tablet 75 mg PO DAILY Qty: 30 RF: 0 Continue levothyroxine 175 mcg Tablet 175 mcg PO DAILY RF: 0 aspirin [Aspirin Low Dose] 81 mg Tablet,Delayed Release (Dr/Ec) 81 mg PO DAILY RF: 0 oxycodone-acetaminophen 10-325 mg Tablet 1 tab PO Q6H PRN (Reason: Pain) RF: 0 omega 9-zyh-zud-fish oil [Fish Oil] 60-90-500 mg Capsule 1 cap PO DAILY RF: 0 baclofen 10 mg Tablet 10 mg PO HS RF: 0 cholecalciferol (vitamin D3) [Vitamin D3] 5,000 unit Tablet 5,000 unit PO DAILY RF: 0 lisinopril 10 mg Tablet 10 mg PO DAILY Qty: 30 RF: 11 Referrals: UNKNOWN, [Primary Care Provider] - See Instructions (PLEASE CALL [facility] AT [phone] TO MAKE A HOSPITAL FOLLOW UP APPT. PCP within 1-2 weeks. ) Discharge Instructions Patient Printed Instructions: Chest Pain (ED) Status ED Status: Left Department
--- NOTE | 2018-05-24 11:21 | P.PNCA ---
Subjective Interval history: I saw patient at 0800, no angina or SOB Medications and Allergies Allergies Allergy/AdvReac Type Severity Reaction Status Date / Time banana Allergy Severe GI UPSET Verified 05/23/18 00:54 morphine Allergy Severe Rash Verified 05/23/18 00:54 Home Medications Medication Instructions Recorded Confirmed Type aspirin [Aspirin Low Dose] 81 mg PO DAILY 02/04/18 05/23/18 History levothyroxine 175 mcg PO DAILY 02/04/18 05/23/18 History omega 7-kor-pzt-fish oil [Fish Oil] 1 cap PO DAILY 02/04/18 05/23/18 History oxycodone-acetaminophen 1 tab PO Q6H PRN 02/04/18 05/23/18 History baclofen 10 mg PO HS 05/23/18 05/23/18 History cholecalciferol (vitamin D3) 5,000 unit PO DAILY 05/23/18 05/23/18 History [Vitamin D3] Physical Exam Vital signs: Vital Signs 05/23/18 11:24 05/23/18 18:00 05/23/18 19:00 Temperature 97.8 F Pulse Rate 66 93 H Respiratory Rate 18 Blood Pressure 154/99 H Pulse Oximetry 93 L 100 05/23/18 20:00 05/23/18 21:00 05/23/18 22:00 Temperature 98.3 F Pulse Rate 76 70 68 Respiratory Rate 18 Blood Pressure 154/88 H Pulse Oximetry 99 05/23/18 23:00 05/24/18 00:00 05/24/18 01:00 Temperature 98.1 F Pulse Rate 65 64 61 Respiratory Rate 19 Blood Pressure 115/73 Pulse Oximetry 97 05/24/18 02:00 05/24/18 03:00 05/24/18 03:41 Temperature 98.3 F Pulse Rate 73 62 63 Respiratory Rate 18 Blood Pressure 140/87 Pulse Oximetry 98 05/24/18 04:00 05/24/18 05:00 05/24/18 05:52 Temperature Pulse Rate 61 87 Respiratory Rate 17 Blood Pressure Pulse Oximetry 05/24/18 06:00 05/24/18 07:00 05/24/18 07:57 Temperature 98.1 F Pulse Rate 62 64 73 Respiratory Rate 17 Blood Pressure 150/71 H Pulse Oximetry 98 05/24/18 07:58 Temperature Pulse Rate Respiratory Rate Blood Pressure Pulse Oximetry 98 Intake & Output 05/23/18 05/24/18 05/24/18 18:59 06:59 18:59 Intake Total 240 / 240 1999 380 / 380 Output Total 650 / 650 250 / 250 Balance 240 / 240 1350 / 1350 130 / 130 Weight 84.9 kg Intake: IV 1999 140 / 140 Nitroglycerin Drip Premix 50 mg 140 / 140 In 250 ml @ Per Protocol IV. CONT TITRATE PRN Rx#:[id number] NS Inj 1,000 ML @ 100 mls/hr IV 1999 .CONT .Q10H [facility] Rx#:[id number] Oral 240 / 240 240 / 240 Output: Urine 650 / 650 250 / 250 Other: Date of Last Bowel Movement 05/23/18 Narrative: Alert X O X3 No JVD Chest clear Cv S1S2 RRR, 1-2/6 MR one focal apical spot Echo Mod MR with eccentric jet - EF OK on echo Abd soft Ext no CCE Results 05/24/18 05:40 05/24/18 05:40 Cardiac Enzymes 05/23/18 05/23/18 05/23/18 Range/Units 01:58 14:46 21:14 AST 48 H (15-37) U/L CK-MB (CK-2) 8.9 H (0.5-3.6) ng/mL Troponin I 3.52 H* 11.70 H* 7.15 H* (0.02-0.05) ng/mL Coagulation 05/23/18 05/23/18 Range/Units 04:09 14:46 PT 11.9 H (9.8-11.6) sec APTT 80.0 H 29.6 D (23.4-31.7) sec CBC 05/23/18 05/24/18 Range/Units 01:58 05:40 WBC 5.2 4.3 (4.0-11.0) th/mm3 RBC 4.31 L 4.18 L (4.50-5.90) mil/mm3 Hgb 13.2 12.8 L (13.0-17.0) gm/dL Hct 39.4 38.5 L (39.0-51.0) % Plt Count 214 182 (150-450) th/mm3 Neut # (Auto) 3.0 1.8 (1.8-7.7) th/mm3 Lymph # (Auto) 1.4 1.9 (1.0-4.8) th/mm3 [place] # (Auto) 0.5 0.4 (0.0-0.9) th/mm3 Eos # (Auto) 0.2 0.2 (0.0-0.4) th/mm3 Baso # (Auto) 0.1 0.0 (0.0-0.2) th/mm3 Comprehensive Metabolic Panel 05/23/18 05/24/18 Range/Units 01:58 05:40 Sodium 140 142 (136-145) meq/L Potassium 3.7 3.7 (3.5-5.1) meq/L Chloride 107 107 (98-107) meq/L Carbon Dioxide 27.4 27.1 (21.0-32.0) meq/L BUN 16 10 (7-18) mg/dL Creatinine 1.14 0.82 (0.60-1.30) mg/dL Calcium 8.2 L 7.9 L (8.5-10.1) mg/dL AST 48 H (15-37) U/L ALT 41 (12-78) U/L Alkaline Phosphatase 101 (45-117) U/L Total Protein 7.4 (6.4-8.2) g/dL Albumin 3.5 (3.4-5.0) g/dL Intake and Output 05/23/18 05/24/18 05/24/18 22:59 06:59 14:59 Intake Total 1240 / 1240 1000 / 1000 380 / 380 Output Total 650 / 650 250 / 250 Balance 1240 / 1240 350 / 350 130 / 130 Intake: IV 1000 / 1000 1000 / 1000 140 / 140 Nitroglycerin Drip Premix 50 mg 140 / 140 In 250 ml @ Per Protocol IV. CONT TITRATE PRN Rx#:[id number] NS Inj 1,000 ML @ 100 mls/hr IV 1000 / 1000 1000 / 1000 .CONT .Q10H [facility] Rx#:[id number] Oral 240 / 240 240 / 240 Output: Urine 650 / 650 250 / 250 Other: Date of Last Bowel Movement 05/23/18 05/23/18 Weight 84.9 kg - Imaging and Cardiology Imaging: Impressions Chest X-Ray 05/23/18 00:57 CONCLUSION: No acute cardiopulmonary process. No significant change from prior. Assessment and Plan - Assessment (1) Stented coronary artery Code(s): Z95.5 - Presence of coronary angioplasty implant and graft Status: Acute Plan: ASA + plavix (at least 12 months (2) Mitral regurgitation Code(s): I34.0 - Nonrheumatic mitral (valve) insufficiency Status: Acute Plan: Moderate. Cont BB/ACEI (3) NSTEMI (non-ST elevated myocardial infarction) Code(s): I21.4 - Non-ST elevation (NSTEMI) myocardial infarction Status: Acute Plan: No strenuous activity. OV 2 weeks
== END 2018-05-24 10:49 | disposition home or self-care (01) | DRG 247 ==
LOC: NEPE 00:49 → NEDA 03:53 → HDIC 11:26 → HCIS 17:38
PROVIDERS: ADMIT Hospitalist; ATTEND Hospitalist
DX: G89.29 Other chronic pain; I10 Essential (primary) hypertension; F12.90 Cannabis use, unspecified, uncomplicated; I34.0 Nonrheumatic mitral (valve) insufficiency; Z87.891 Personal history of nicotine dependence; I25.10 Atherosclerotic heart disease of native coronary artery without angina pectoris; E11.9 Type 2 diabetes mellitus without complications; Z91.19 Patient's noncompliance with other medical treatment and regimen; Z79.82 Long term (current) use of aspirin; I21.4 Non-ST elevation (NSTEMI) myocardial infarction; N17.9 Acute kidney failure, unspecified; M54.5 Low back pain; Z95.5 Presence of coronary angioplasty implant and graft; E03.9 Hypothyroidism, unspecified
CPT/HCPCS: 71010; 71045; 80048; 80053; 82550; 82552; 84484; 85025; 85610; 85730; 90774; 90784; 92928; 93005; 93306; 93458; 96374; 99152; 99153; 99291; C1725; C1769; C1874; C1887; C1893; C8952; J1644; J2250; J3010; J7030; Q9967